=== PATIENT | male | born 1935 | race Caucasian/White ===

== ENCOUNTER 2021-01-28 18:24 | Inpatient (IN) | payer MEDICARE, OTHER ==
[~2021-01-28] VITALS: Ht 177.8 cm; Wt 102.1 kg
--- NOTE | 2021-01-28 18:28 | NUR ---
PT BIB[facility] FROM [facility] TO ER BED 05, PER REPORT PT IS MORE ALTERED THAN NORMAL AND WAS NOTED TO HAVE FEVER. 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 GOWNED AND PLACED ON MONITOR AWAITINGMD EVAL.
--- NOTE | 2021-01-28 18:30 | NUR ---
DR BISWAS AT BEDSIDE FOR EVAL.
[2021-01-28] MEDS ORDERED: POTA10TA10 PO (18:40)
[2021-01-28] MEDS ORDERED: FURO-145 PO (18:40)
[2021-01-28] MEDS ORDERED: DOCU-141 PO (18:40)
[2021-01-28] MEDS ORDERED: LACT10SO3 PO (18:40)
[2021-01-28] MEDS ORDERED: CLON0.1T PO (18:40)
[2021-01-28] MEDS ORDERED: ATOR10TA PO (18:40)
[2021-01-28] MEDS ORDERED: MULT-447 PO (18:40)
[2021-01-28] MEDS ORDERED: ACET-2605 PO ×2 (18:40)
[2021-01-28] MEDS ORDERED: MAGN400O6 PO (18:40)
[2021-01-28] MEDS ORDERED: MELA5TAB PO (18:40)
[2021-01-28] MEDS ORDERED: NA P133E RC (18:40)
[2021-01-28] MEDS ORDERED: FINA5TAB11 PO (18:40)
[2021-01-28] MEDS ORDERED: ACET-868 PO (18:40)
[2021-01-28] MEDS ORDERED: AMLO-213 PO (18:40)
[2021-01-28] MEDS ORDERED: MEGE40TA5 PO (18:40)
[2021-01-28] MEDS ORDERED: FAMO20TA8 PO (18:40)
[2021-01-28] MEDS ORDERED: BISA10SU11 RC (18:40)
--- NOTE | 2021-01-28 19:00 | NUR ---
CORPORATE STATISTICAL FINANCIAL ANALYST AT BEDSIDE FOR BLOOD DRAW.
[2021-01-28 19:09] LABS: BASOPHILS # (AUTO) 0.1 K/uL (0.0-0.2); BASOPHILS % (AUTO) 0.8 % (0.0-2.0); EOSINOPHILS % (AUTO) 0.8 % (0.0-6.0); HEMATOCRIT 43 % (39-51); HEMOGLOBIN 13.9 g/dL (13.5-17.5); LYMPHOCYTES # (AUTO) 1.6 K/uL (0.8-4.8); LYMPHOCYTES % (AUTO) 11.7 % (20.0-44.0); MEAN CORPUSCULAR HGB CONC 32 g/dl (31.0-36.0); MEAN CORPUSCULAR VOLUME 96 fL (80-96); MONOCYTES % (AUTO) 7.4 % (2.0-12.0); NEUTROPHILS # (AUTO) 10.8 K/uL (1.8-8.9); NEUTROPHILS % (AUTO) 79.3 % (43.0-81.0); PLATELET COUNT (AUTO) 426 K/uL (150-450); RED BLOOD CELL COUNT(AUTO) 4.48 MIL/uL (4.5-6.0); WHITE BLOOD COUNT (AUTO) 13.6 K/uL (4.3-11.0)
--- NOTE | 2021-01-28 19:11 | NUR ---
INFLUENZA SAMPLE OBTAINED AND SENT TO LAB
--- NOTE | 2021-01-28 19:19 | NUR ---
REPORT TO MARIBEL COSME FOR LUNA.
[2021-01-28 19:30] LABS: CALCIUM, SERUM 9.7 mg/dL (8.5-10.1); CARBON DIOXIDE 19 mmol/L (21-32); CHLORIDE 118 mmol/L (98-107); CREATININE 2.1 mg/dL (0.6-1.3); GLUCOSE 124 mg/dL (74-106); POTASSIUM 3.5 mmol/L (3.5-5.1); SODIUM SERUM 151 mmol/L (136-145); UREA NITROGEN, BLOOD 50 mg/dL (7-18)
[2021-01-28 19:35] LABS: ALANINE AMINOTRANSFERASE 49 U/L (12-78); ALBUMIN 2.4 g/dL (3.4-5.0); ALKALINE PHOSPHATASE 80 U/L (46-116); ASPARTATE AMINOTRANSFERASE 27 U/L (15-37); BILIRUBIN,DIRECT 0.2 mg/dL (0.0-0.2); BILIRUBIN,TOTAL 0.5 mg/dL (0.2-1.0); TOTAL PROTEIN, SERUM 7.4 g/dL (6.4-8.2)
[2021-01-28] MEDS ORDERED: PIPERACILLIN /TAZOBACTAM 3.375 G VIAL IV ONE (19:52)
[2021-01-28] MEDS ORDERED: PIPERACILLIN /TAZOBACTAM 3.375 G in IV D5W 50 ML IV ONE (20:00)
--- NOTE | 2021-01-28 20:00 | NUR ---
UNABLE TO COLLECT URINE, AWARE
--- NOTE | 2021-01-28 20:22 | NUR ---
sent covid swab to lab
[2021-01-28] MEDS ORDERED: ZOLPIDEM TARTRATE 5 MG TABLET PO PRN (21:00)
[2021-01-28] MEDS ORDERED: MAGNESIUM HYDROXIDE 30 ML UDC PO PRN (21:00)
[2021-01-28] MEDS ORDERED: ACETAMINOPHEN 325 MG TABLET PO PRN (21:00)
[2021-01-28] MEDS ORDERED: Z GUARD REMEDY 2 OZ OINT TP PRN (21:00)
[2021-01-28] MEDS ORDERED: IV NS 0.9% 1,000 ML IV PRN (21:00)
[2021-01-28] MEDS ORDERED: ONDANSETRON HCL/PF 4 MG/2 ML VIAL IVP PRN (21:00)
--- NOTE | 2021-01-28 22:55 | NUR ---
called cedric to have image read
--- NOTE | 2021-01-28 23:00 | NUR ---
RN NOTE REPORT RECEIVED BY CARMELINA KUHN FOR LUNA.
--- NOTE | 2021-01-28 23:02 | NUR ---
report given to emerson Marvin for gila
--- NOTE | 2021-01-28 23:13 | NUR ---
TRANSFERRED TO FIRST FLOOR UNDER ACLS
--- NOTE | 2021-01-28 23:15 | NUR ---
RN NOTE PT BROUGHT TO [facility] VIA GURNEY FROM ER. PT IS ON 5L OF O2 SHOWING WITH OXYGEN SATURATION AT 92%. PT IS UNABLE TO ANSWER QUESTION AND IS A/OX1. PT IS ON TELE MONITOR SHOWING ST. CARDIAC DIET. IV ACCESS NOTED ON LEFT HAND #20. LINE FLUSHED, PATENT, AND INTACT WITH NO SIGNS OF INFILTRATION. ALL SAFETY MEASURES IMPLEMENTED. BED LOCKED AND IN LOWEST POSITION. BED ALARM ON. SIDE RAILS UP. WILL CONTINUE TO MONITOR AND ASSESS FOR ANY CHANGES.
[2021-01-28 23:20] VITALS: BP 127/76
[2021-01-28] MEDS: HEPARIN SODIUM, PORCINE 5000 UNITS/1 ML VIAL SQ SCH (23:27)
--- NOTE | 2021-01-29 00:34 | NUR ---
RN NOTE SPOKE WITH DR. JACQUES ABOUT PT HR IN HIGH 120s, TACHYPNEA, AND USE OF ACCESSORY MUSCLES. DR. JACQUES ORDERED STAT ABG AND TO SUCTION PT.
[2021-01-29 01:10] LABS: ABG OXYGEN SATURATION 91.7 % (92.0-98.5); ABG PCO2 24.1 mmHg (35.0-45.0); ABG PH 7.459 (7.350-7.450); ABG PO2 60.2 mmHg (75.0-100.0); AaDO2 168.5 mmHg; COHb 0.7 % (0.5-1.5); MetHb 0.2 % (0.0-1.5); O2Hb 90.9 % (94.0-97.0); SITE, ABG Right Radial; VENT MODE, BG N/C 4L
--- NOTE | 2021-01-29 01:17 | NUR ---
RT NOTE ABG DONE AND RESULTS GIVEN TO RN YOLANDA, CHARGE NURSE NENA ALSO NOTIFIED OF ABG RESULTS. PT ON 4L NC AND NTS DONE, SX'ED THICK WHITE MOD AMT OF SECRETIONS. WILL CONTINUE TO MONITOR T/O SHIFT
--- NOTE | 2021-01-29 01:21 | NUR ---
RN NOTE SPOKE WITH DR. JACQUES ABOUT PT DOING BETTER NOW AFTER SUCTIONING. ALSO INFORMED HER ABOUT ABG RESULTS. NO NEW ORDERS AT THIS TIME. WILL CONTINUE TO MONITOR AND ASSESS FOR ANY CHANGES.
[2021-01-29] MEDS ORDERED: VANCOMYCIN 2 GM in IV D5W 500 ML IV ONE (02:00)
[2021-01-29] MEDS ORDERED: VANCOMYCIN 1 GM VIAL ONE (02:15)
[2021-01-29 04:00] VITALS: BP 131/86
[2021-01-29] MEDS ORDERED: ZOSYN IVPB 3.375 G in IV D5W 50ml IV ONE (04:00)
[2021-01-29] MEDS ORDERED: PIPERACILLIN /TAZOBACTAM 3.375 G VIAL IV ONE (04:08)
--- NOTE | 2021-01-29 06:36 | NUR ---
RN NOTE DR. JACQUES CAME AND SAW PT. DR. JACQUES ORDERED TO CALL RT AND HAVE THEM COME DEEP SUCTION PT. CALLED RT 3 TIMES AND EACH TIME THEY SAID THEY WILL SEND SOMEONE OVER. NO ONE FROM [facility]AME AND [employer]ISTORY PROFESSORNENA CALLED AGAIN FOR THE 4TH TIME TO SEE WHERE THEY WERE AFTER NOT SHOWING UP FOR 45MIN-HOUR AND THEY TOLD NENA THAT THEY ARE NOT COMING AND THAT DAY SHIFT WILL COME WHEN THEY ARE HERE. SPOKE WITH DR. JACQUSE ABOUT SITUATION AND SHE TOLD ME TO SUCTION PATIENT. PT WAS DEEP SUCTIONED AND THERE WAS MODERATE AMOUNT OF GREEN-BROWN SECRETIONS. PT SOUNDED LESS CONGESTED AND SOUNDED MUCH MORE CLEAR. INFORMED DR. JACQUES. ORDERED ABG. ORDER NOTED AND CARRIED OUT.
--- NOTE | 2021-01-29 07:08 | NUR ---
RN NOTE NO CHANGES IN PT CONDITION DURING SHIFT. PT IS ON 8L OF O2 WITH OXYGEN SATURATION AT >92%. PT WAS DEEP SUCTIONED AND SOUNDS LESS CONGESTED NOW AND SOUNDS MUCH MORE CLEAR. PT IS ON TELE MONITOR SHOWING ST. IV ACCESS NOTED ON LEFT HAND #20. LINE FLUSHED, PATENT, AND INTACT WITH NO SIGNS OF INFILTRATION. ALL DUE MEDS GIVEN ORDERED. PT KEPT CLEAN AND COMFORTABLE. ALL SAFETY MEASURES IMPLEMENTED. BED LOCKED AND IN LOWEST POSITION. BED ALARM ON. SIDE RAILS UP. WILL ENDORSE TO MORNING SHIFT RN FOR LUNA.
[2021-01-29 07:50] LABS: BASOPHILS % (AUTO) 0.1 % (0.0-2.0); EOSINOPHILS % (AUTO) 0.3 % (0.0-6.0); HEMATOCRIT 41 % (39-51); HEMOGLOBIN 13.3 g/dL (13.5-17.5); LYMPHOCYTES # (AUTO) 1.2 K/uL (0.8-4.8); LYMPHOCYTES % (AUTO) 8.6 % (20.0-44.0); MEAN CORPUSCULAR HGB CONC 33 g/dl (31.0-36.0); MEAN CORPUSCULAR VOLUME 96 fL (80-96); MONOCYTES % (AUTO) 7.2 % (2.0-12.0); NEUTROPHILS # (AUTO) 11.6 K/uL (1.8-8.9); NEUTROPHILS % (AUTO) 83.8 % (43.0-81.0); PLATELET COUNT (AUTO) 372 K/uL (150-450); RED BLOOD CELL COUNT(AUTO) 4.26 MIL/uL (4.5-6.0); WHITE BLOOD COUNT (AUTO) 13.8 K/uL (4.3-11.0)
[2021-01-29 08:00] VITALS: BP 140/85
--- NOTE | 2021-01-29 08:00 | NUR ---
COTTON FEEDER NOTE PATIENT IN BED WITH SEVERE CHEST CONGESTION NOTED, ON 8L SIMPLE MASK SATURATION 94% AT THIS TIME , ON TELE MONITOR ST 108 , RT HAND HL INTACT AND FLUSHED WELL ,ON IVF ORDERED BED IN LOWEST AND LOCKED POSITION, WILL MONITOR
[2021-01-29 08:02] LABS: CALCIUM, SERUM 9.3 mg/dL (8.5-10.1); CARBON DIOXIDE 19 mmol/L (21-32); CHLORIDE 116 mmol/L (98-107); CREATININE 2.1 mg/dL (0.6-1.3); GLUCOSE 147 mg/dL (74-106); MAGNESIUM 2.5 mg/dL (1.8-2.4); PHOSPHORUS 3.1 mg/dL (2.5-4.9); POTASSIUM 3.5 mmol/L (3.5-5.1); SODIUM SERUM 150 mmol/L (136-145); UREA NITROGEN, BLOOD 48 mg/dL (7-18)
--- NOTE | 2021-01-29 08:15 | NUR ---
WOUND CARE CONSULT: REVIEWED CHART, NURSING DOCUMENTATION AND PHOTOS WHICH INDICATE RASH TO SCROTUM AND BUTTOCKS WELL SCARRING TO SACRUM AND UPPER BACK, PRESENT ON ADMISSION. RECOMMENDATIONS MADE FOR SKIN PROTECTION. DISCUSSED WITH NURSING STAFF. MD IN AGREEMENT WITH PLAN OF CARE.
[2021-01-29 08:19] LABS: CHOLESTEROL 95 mg/dL (<200); HDL CHOLESTEROL 36 mg/dL (40-60); LDL 39 mg/dL (0-99); TRIGLYCERIDES 108 mg/dL (30-150)
--- NOTE | 2021-01-29 08:30 | NUR ---
CABIN OUTFITTER NOTE RT AT BEDSIDE NASOPHARYNGEAL SUCTION DONE WITH BLOODY TINGED SECRETION NOTED , CHANGED TO 6L NC SATURATION 93% AT THIS TIME
[2021-01-29] MEDS: CLOTRIMAZOLE 1% 15 GM TUBE TP SCH ×2 (09:23→17:17)
[2021-01-29] MEDS: HEPARIN SODIUM, PORCINE 5000 UNITS/1 ML VIAL SQ SCH ×2 (09:24→22:04)
--- NOTE | 2021-01-29 09:40 | NUR ---
JOURNEYMAN PATTERNMAKER NOTE SEEN BT DR BAEZ SENIOR GAME ADVISOR REPORTED CHEST X HU RESULT AND PATIENT CONDITION STATED THAT WILL CHECK IT OUT
--- NOTE | 2021-01-29 10:38 | NUR ---
DIRECTOR OF SEARCH ENGINE MARKETING NOTE POOLED IB HL CALLED TO NURSING MARKETING DIRECTOR PATIENT NEED MID LINE PATIENT IS HARD STICK
[2021-01-29 11:45] LABS: LYMPHOCYTES % (MANUAL) 7 % (16-48); MONOCYTES % (MANUAL) 11 % (0-11.0); NEUTROPHILS % (MANUAL) 82 (42-76)
[2021-01-29 12:00] VITALS: BP 140/91
--- NOTE | 2021-01-29 12:15 | NUR ---
RN REVIEW NOTE UNABLE TO ADMINISTER ZOSYN IVPB ABATING FOR MID LINE NURSE
[2021-01-29] MEDS: ZOSYN IVPB 3.375 G in IV D5W 50ml IV SCH ×2 (13:08→17:16)
--- NOTE | 2021-01-29 13:11 | NUR ---
LINEWORKER NOTE CALLED TO [place] NOTIFIED THAT PATIENT CONDITION ALSO GIVE PHONE NUMBER WARREN DANISHA
[2021-01-29] MEDS ORDERED: FUROSEMIDE 40 MG/4 ML VIAL IV ONE (14:00)
--- NOTE | 2021-01-29 15:42 | NUR ---
tel4e rn note placed mask 8l saturation 94% , all needs attended, turn reposition , keep clean dy
[2021-01-29 16:00] VITALS: BP 140/89
[2021-01-29] MEDS: CLONIDINE HCL 0.1 MG TABLET PO SCH (17:17)
[2021-01-29] MEDS: IV 1/2NS 1000 ML 1,000 ML IV PRN (17:31)
--- NOTE | 2021-01-29 17:34 | NUR ---
television operator note na [address] rice statistics tutor with order 1\1 ns art 75 ml per hour
[2021-01-29 18:23] LABS: ABG BASE EXCESS -5.5 mmol/L; ABG OXYGEN SATURATION 95.3 % (92.0-98.5); ABG PCO2 25.9 mmHg (35.0-45.0); ABG PH 7.434 (7.350-7.450); ABG PO2 75.2 mmHg (75.0-100.0); AaDO2 216.2 mmHg; COHb 0.5 % (0.5-1.5); MetHb 0.1 % (0.0-1.5); O2Hb 94.7 % (94.0-97.0); SITE, ABG Right Radial; VENT MODE, BG SIMPLE MASK
--- NOTE | 2021-01-29 19:17 | NUR ---
telemarketing agent note note with chest congestion, rt at bedside, deep suction done, placed on mask , 8l saturation 95%, endorsed care to upcoming rn Yon
--- NOTE | 2021-01-29 19:30 | NUR ---
RN NOTE PT RECEIVED IN BED. PT IS ON 8L OF 02 VIA SIMPLE MASK WITH OXYGEN SATURATION CURRENTLY AT 96%. PT IS A/OX1-2. ON TELE MONITOR SHOWING ST. IV ACCESS NOTED ON RIGHT UPPER ARM MIDLINE #20. LINE FLUSHED, PATENT, AND INTACT WITH NO SIGNS OF INFILTRATION. ALL SAFETY MEASURES IMPLEMENTED. SIDE RAILS UP X2. BED ALARM ON. BED LOCKED AND IN LOWEST POSITION. WILL CONTINUE TO MONITOR AND ASSESS FOR ANY CHANGES THROUGHOUT THE SHIFT.
[2021-01-29 20:00] VITALS: BP 137/87
--- NOTE | 2021-01-29 20:45 | NUR ---
RN NOTES, RECEIVED PATIENT FROM YOLANDA FOR CONTINUATION OF CARE, PATIENT ON SIMPLE MASK AT 8L WITH O2 SATURATION 96% AT THIS TIME, SINUS TACHY ON THE THELE MONITOR AT THIS TIME WITH HR 110, BED LOCKED AND IN LOWEST POSITION, S/R BED X2 UP, CALL LIGHT W/I REACH, WILL CONTINUE TO MONITOR CLOSELY.
--- NOTE | 2021-01-29 20:48 | NUR ---
RN NOTE REPORT GIVEN TO CARMELINA BARRETT FOR LUNA.
[2021-01-29] MEDS ORDERED: Medication Not On Formulary EA (Melatonin 5 MG) PO SCH (22:00)
[2021-01-29] MEDS: ATORVASTATIN 10 MG TABLET PO SCH (22:03)
[2021-01-29] MEDS ORDERED: CEFEPIME 1 GM in IV D5W 50 ML IV ONE (22:30)
[2021-01-29] MEDS ORDERED: CEFEPIME 1 GM VIAL ONE (22:38)
[2021-01-30] VITALS: BP 134/72
[2021-01-30 04:00] VITALS: BP 131/79
--- NOTE | 2021-01-30 04:19 | NUR ---
RT NOTE NASOTRACHEAL SUCTION GIVEN, MODERATE THICK SMITH SECRETIONS NOTED. B/S IMPROVED POST SUCTION. SPO2 @ 98%.
--- NOTE | 2021-01-30 07:20 | NUR ---
RN NOTES, PATIENT ON SIMPLE MASK AT 6L WITH O2 SATURATION >94% AT THIS TIME, SINUS TACHY ON THE THELE MONITOR AT THIS TIME WITH HR 110 ALL LIGHT, NASAL SUCTIONING PROVIDED NEEDED DURING THE NIGHT, UNABLE TO COLLECT URINE, RESISTANCE WHILE STRAIGHT CATH, AFTER BLADDER SCAN DONE, NO URINE IN THE BLADDER, PATIENT VOIDS 3X PRIOR, BED LOCKED AND IN LOWEST POSITION, DRY AND CLEAN, S/R BED X2 UP, CALL LIGHT W/I REACH, ENDORSE TO KRISTINA COSME FOR CONTINUATION OF CARE.
--- NOTE | 2021-01-30 07:34 | NUR ---
RN NOTE PATIENT IS IN BED WITH HOB AT SEMI FOWLERS POSITION. PATIENT IS ON 6L NC WITH NO SIGNS OF LABORED BREATHING. PATIENT IS AOX1. MARTIN MIDLINE IS PATENT AND INTACT. BED IS LOCKED IN THE LOWEST POSITION, 3 GUARD RAILS RAISED, CALL DIAMOND WITHIN REACH, AND ALL HOSPITAL SAFETY PRECAUTIONS ARE BEING FOLLOWED. WILL CONTINUE TO MONITOR THROUGHOUT SHIFT.
[2021-01-30 08:00] VITALS: BP 125/64
[2021-01-30] MEDS: AMLODIPINE BESYLATE 10 MG TABLET PO SCH (08:19)
[2021-01-30] MEDS: DOCUSATE SODIUM 100 MG CAPSULE PO SCH (08:19)
[2021-01-30] MEDS: FINASTERIDE (5 MG) 5 MG TABLET PO SCH (08:19)
[2021-01-30] MEDS: CLONIDINE HCL 0.1 MG TABLET PO SCH ×2 (08:20→16:14)
[2021-01-30] MEDS: CLOTRIMAZOLE 1% 15 GM TUBE TP SCH ×2 (08:20→16:14)
[2021-01-30] MEDS: HEPARIN SODIUM, PORCINE 5000 UNITS/1 ML VIAL SQ SCH ×2 (08:21→21:00)
[2021-01-30 12:00] VITALS: BP 117/75
[2021-01-30] MEDS: VANCOMYCIN 1.25 GM in IV D5W 250 ML IV SCH (13:03)
[2021-01-30 15:16] LABS: CARBON DIOXIDE 19 mmol/L (21-32); CHLORIDE 118 mmol/L (98-107); CREATININE 2.1 mg/dL (0.6-1.3); GLUCOSE 123 mg/dL (74-106); POTASSIUM 3.8 mmol/L (3.5-5.1); SODIUM SERUM 151 mmol/L (136-145); UREA NITROGEN, BLOOD 49 mg/dL (7-18)
[2021-01-30 16:00] VITALS: BP 114/74
[2021-01-30] MEDS: IV 1/2NS 1000 ML 1,000 ML IV PRN (18:01)
--- NOTE | 2021-01-30 18:30 | NUR ---
RN NOTE PATIENT IS IN BED WITH HOB AT SEMI FOWLERS POSITION. PATIENT IS ON 6L NC WITH NO SIGNS OF LABORED BREATHING. PATIENT IS AOX1. MARTIN MIDLINE IS PATENT AND INTACT. BED IS LOCKED IN THE LOWEST POSITION, 3 GUARD RAILS RAISED, CALL DIAMOND WITHIN REACH, AND ALL HOSPITAL SAFETY PRECAUTIONS ARE BEING FOLLOWED. ALL DUE MEDS GIVEN AND PATIENT REMAINED STABLE THROUGHOUT SHIFT. WILL ENDORSE TO FIELD SALES TRAINER RN.
--- NOTE | 2021-01-30 19:30 | NUR ---
RN NOTE RECEIVED PATIENT IN BED. A/OX1, OPENS EYES TO NOISE AND TACTILE STIMULI. ON OXYGEN 4L/MIN VIA NASAL CANNULA. TACHYPNEIC. RT DEEP SUCTION THE PATIENT. RT REPORTED SECRETIONS ARE BLACK THEN BECAME SMITH IN COLOR. NO S/S PAIN. TELE MONITOR READS SINUS RHYTHM HR 95. IV IN MARTIN MIDLINE RUNNING 1/2NS@75ML/HR. BILATERAL SOFT WRIST RESTRAINTS PRESENT, NO REDNESS, CAP REFILL WNL. BED IS LOW AND LOCKED, HOB ELEVATED IN SEMI FOWLERS, SIDE RIALS UP X2, CALL LIGHT WITHIN REACH.
[2021-01-30 20:00] VITALS: BP 108/78
[2021-01-30] MEDS: ATORVASTATIN 10 MG TABLET PO SCH (21:49)
[2021-01-30] MEDS: CEFEPIME 1 GM in IV D5W 50 ML IV SCH (21:49)
[2021-01-31] VITALS (8 sets, daily range): BP systolic 102–148; BP diastolic 51–94
--- NOTE | 2021-01-31 00:09 | NUR ---
STAGE BUILDER OF CARE NOTE BEDSIDE REPORT GIVEN TO SAMUEL RN FOR CONTINUATION OF CARE. PATIENT TRANSFERRED BY PIT STEWARD AND CONTRERAS PRODUCTION GRIP AND SAMUEL RN. ALL BELONGINGS AND MEDICATION FROM CASSETTE WITH PATIENT WELL PATIENTS CHART.
--- NOTE | 2021-01-31 00:27 | NUR ---
RN NOTE RECEIVED PATIENT IN BED, SLEEPING, AROUSABLE. AOX1. BREATHING EVEN AND UNLABORED. NO SOB NOTED. PATIENT ON 4L/MIN NASAL CANNULA. NO COUGH/CONGESTION NOTED. SKIN WARM AND DRY. NOTED WITH MARTIN MIDLINE RUNNING 75 ML/HR. NO INFILTRATION NOTED. PATIENT ON TELEMETRY MONITORING, CURRENTLY SINUS RHYTHM AT 93 BPM. HOB ELEVATED 35 DEGREES. BED LOCKED, IN LOW POSITION. CALL LIGHT WITHIN REACH.
[2021-01-31] MEDS: IV 1/2NS 1000 ML 1,000 ML IV PRN ×2 (05:07→17:54)
--- NOTE | 2021-01-31 07:00 | NUR ---
RN OPENING NOTE RECEIVED PATIENT IN BED, AROUSABLE. AOX1. PT IN RESTRAINTS - RENEWED WITH DOCTOR'S ORDER AT 0400. BREATHING EVEN AND UNLABORED. NO SOB NOTED. PATIENT DECLINING 4L/MIN NASAL CANNULA ORDER WHILE MAINTAINING AN O2SAT OF 94% ON ROOM AIR. NO COUGH/CONGESTION NOTED. SKIN WARM AND DRY. NOTED WITH MARTIN MIDLINE RUNNING 75 ML/HR. NO INFILTRATION NOTED. PATIENT ON TELEMETRY MONITORING, CURRENTLY SINUS RHYTHM AT 98 BPM. HOB ELEVATED 35 DEGREES. BED LOCKED, IN LOW POSITION. CALL LIGHT WITHIN REACH.
[2021-01-31] MEDS: DOCUSATE SODIUM 100 MG CAPSULE PO SCH (10:06)
[2021-01-31] MEDS: CLONIDINE HCL 0.1 MG TABLET PO SCH ×2 (10:07→17:25)
[2021-01-31] MEDS: FINASTERIDE (5 MG) 5 MG TABLET PO SCH (10:07)
[2021-01-31] MEDS: AMLODIPINE BESYLATE 10 MG TABLET PO SCH (10:38)
[2021-01-31 11:30] LABS: BASOPHILS % (AUTO) 0.1 % (0.0-2.0); EOSINOPHILS % (AUTO) 2.7 % (0.0-6.0); HEMATOCRIT 44 % (39-51); HEMOGLOBIN 12.8 g/dL (13.5-17.5); LYMPHOCYTES # (AUTO) 2.2 K/uL (0.8-4.8); MEAN CORPUSCULAR HGB CONC 29 g/dl (31.0-36.0); MEAN CORPUSCULAR VOLUME 109 fL (80-96); MONOCYTES # (AUTO) 1.9 K/uL (0.1-1.30); MONOCYTES % (AUTO) 11.3 % (2.0-12.0); NEUTROPHILS # (AUTO) 12.4 K/uL (1.8-8.9); NEUTROPHILS % (AUTO) 72.9 % (43.0-81.0); PLATELET COUNT (AUTO) 299 K/uL (150-450); RED BLOOD CELL COUNT(AUTO) 4.06 MIL/uL (4.5-6.0)
[2021-01-31 11:46] LABS: EOSINOPHILS % (MANUAL) 1 % (0-4); LYMPHOCYTES % (MANUAL) 12 % (16-48); MONOCYTES % (MANUAL) 11 % (0-11.0); NEUTROPHILS % (MANUAL) 76 (42-76)
[2021-01-31 11:56] LABS: CALCIUM, SERUM 9.1 mg/dL (8.5-10.1); CARBON DIOXIDE 20 mmol/L (21-32); CHLORIDE 119 mmol/L (98-107); GLUCOSE 82 mg/dL (74-106); SODIUM SERUM 152 mmol/L (136-145); UREA NITROGEN, BLOOD 47 mg/dL (7-18)
[2021-01-31] MEDS: HEPARIN SODIUM, PORCINE 5000 UNITS/1 ML VIAL SQ SCH ×2 (13:47→21:54)
[2021-01-31] MEDS: CLOTRIMAZOLE 1% 15 GM TUBE TP SCH (17:33)
--- NOTE | 2021-01-31 18:48 | NUR ---
RN CLOSING NOTE PT IS AROUSABLE. AOX1. PT IN RESTRAINTS PER CURRENT ORDER. BREATHING EVEN AND UNLABORED. NO SOB NOTED. PATIENT STILL DECLINING TO USE 4L/MIN NASAL CANNULA ORDER WHILE MAINTAINING AN O2SAT OF 94% ON ROOM AIR. NO COUGH/CONGESTION NOTED. SKIN WARM AND DRY. NOTED WITH MARTIN MIDLINE RUNNING 75 ML/HR. NO INFILTRATION NOTED. PATIENT CONTINUES TO BE MONITORED, CURRENTLY SINUS RHYTHM AT 98 BPM. HOB ELEVATED 35 DEGREES. BED LOCKED, IN LOW POSITION. CALL LIGHT WITHIN REACH. PT WILL BE ENDORSED TO FOLLOWING SHIFT FOR CONTINUATION OF CARE.
[2021-01-31] MEDS: ATORVASTATIN 10 MG TABLET PO SCH (21:54)
[2021-01-31] MEDS: CEFEPIME 1 GM in IV D5W 50 ML IV SCH (22:05)
[2021-02-01] MEDS: VANCOMYCIN 1.25 GM in IV D5W 250 ML IV SCH (01:59)
--- NOTE | 2021-02-01 06:23 | NUR ---
MS RN NOTES AWAKE & NON VERBAL. NOT IN ANY DISTRESS. NO SOB NOTED. NO S/SX OF ANY PAIN OR DISCOMFORT AT THIS TIME. WITH IVF INFUSING WELL. AM CARE DONE. MONITORED ACCORDINGLY. CALL LIGHT WITHIN REACH. BED IN LOWEST POSITION. SR UP X 3 WITH BED ALARM ON FOR SAFETY. WILL ENDORSE TO NEXT SHIFT.
--- NOTE | 2021-02-01 07:52 | NUR ---
MS RN OPENING NOTES RECEIVED PATIENT IN BED, ASLEEP. PATIENT ON OXYGEN THERAPY @ 4LPM VIA NASAL CANNULA. BREATHING EVEN AND UNLABORED; NO SOB NOTED AT THIS TIME. NO S/S OF PAIN SUCH FACIAL GRIMACING, GUARDING OR MOANING NOTED. MARTIN MIDLINE PRESENT AND INTACT RUNNING 1/2 NS @ 75 MLS/HR. SAFETY PRECAUTIONS IN PLACE; BED IN LOW POSITION AND LOCKED, RAILS UP x2, CALL LIGHT WITHIN REACH. WILL CONTINUE TO MONITOR PATIENT.
--- NOTE | 2021-02-01 07:54 | NUR ---
MS COSME OPENING NOTES RECEIVED PATIENT IN BED, ASLEEP. PATIENT ON ROOM AIR. BREATHING EVEN AND UNLABORED; NO SOB NOTED AT THIS TIME. NO S/S OF PAIN SUCH FACIAL GRIMACING, GUARDING OR MOANING NOTED. IV ACCESS AT LAC G #20 PRESENT AND INTACT;SL. SAFETY PRECAUTIONS IN PLACE; BED IN LOW POSITION AND LOCKED, RAILS UP x2, CALL LIGHT WITHIN REACH. WILL CONTINUE TO MONITOR PATIENT. Addendum: 02/01/21 at 1900 by KAPIL LANIER RN WRONG PATIENT
[2021-02-01] MEDS: DOCUSATE SODIUM 100 MG CAPSULE PO SCH (08:29)
[2021-02-01] MEDS: FINASTERIDE (5 MG) 5 MG TABLET PO SCH (08:29)
[2021-02-01] MEDS: CLONIDINE HCL 0.1 MG TABLET PO SCH ×2 (08:30→16:15)
[2021-02-01] MEDS: AMLODIPINE BESYLATE 10 MG TABLET PO SCH (08:30)
[2021-02-01] MEDS: CLOTRIMAZOLE 1% 15 GM TUBE TP SCH ×2 (08:32→16:26)
[2021-02-01] MEDS: HEPARIN SODIUM, PORCINE 5000 UNITS/1 ML VIAL SQ SCH ×2 (08:32→21:27)
[2021-02-01] MEDS: IV 1/2NS 1000 ML 1,000 ML IV PRN (11:03)
[2021-02-01] MEDS ORDERED: IV D5 / 0.2% NACL 1,000 ML IV SCH (15:00)
[2021-02-01] MEDS: IV D5W 1,000 ML IV PRN (16:03)
--- NOTE | 2021-02-01 18:58 | NUR ---
MS RN CLOSING NOTES PATIENT REMAINS IN BED, ASLEEP. PATIENT ON OXYGEN THERAPY AT 4 LPM VIA NASAL CANNULA. BREATHING EVEN AND UNLABORED; NO SOB NOTED AT THIS TIME. NO S/S OF PAIN SUCH FACIAL GRIMACING, GUARDING OR MOANING NOTED AT THIS TIME AND NO COMPLAINS OF PAIN DURING THE DAY. MARTIN MIDLINE PRESENT AND INTACT RUNNING D5W AT 60 MLS/HR. ALL NEEDS ATTENDED DURING THE DAY. SAFETY PRECAUTIONS IN PLACE; BED IN LOW POSITION AND LOCKED, RAILS UP x2, CALL LIGHT WITHIN REACH. WILL ENDORSE TO COOPERATIVE EDUCATION COORDINATOR NURSE FOR LUNA.
--- NOTE | 2021-02-01 19:36 | NUR ---
MS RN OPENING RECEIVED PATIENT IN BED WITH EYES CLOSED, EASY TO AROUSE. READING PATIENT CURRENTLY IN 4LPM OF O2 VIA NC, TOLERATING WELL NO S/S OF APPARENT DISTRESS. NO C/O PAIN. IV D5W RUNNING @60 ML/HR. WILL CONT. TO MONITOR. Addendum: 02/01/21 at 1945 by ELIA RIOS RN MS RN OPENING RECEIVED PATIENT IN BED WITH EYES CLOSED, EASY TO AROUSE. PATIENT CURRENTLY IN 4LPM OF O2 VIA NC, TOLERATING WELL NO S/S OF APPARENT DISTRESS. NO C/O PAIN. IV D5W RUNNING @60 ML/HR. BILATERAL SOFT WRIST RESTRAINTS IN PLACE. WILL CONT. TO MONITOR.
[2021-02-01 20:00] VITALS: BP 136/82
--- NOTE | 2021-02-01 21:00 | NUR ---
MS RN NOTE PATIENT REFUSED LAB DRAW AT THIS TIME. PATIENT MOVING ARMS AROUND. TOLD LAB TO DRAW AGAIN IN THE AM.
[2021-02-01] MEDS: ATORVASTATIN 10 MG TABLET PO SCH (21:19)
[2021-02-01] MEDS: CEFEPIME 1 GM in IV D5W 50 ML IV SCH (22:15)
[2021-02-02] VITALS (8 sets, daily range): BP systolic 86–128; BP diastolic 56–72
--- NOTE | 2021-02-02 07:30 | NUR ---
MS RN OPENING NOTES RECEIVED PATIENT ON BED WITH EYES CLOSED AND EASY TO AROUSE, A/O X1. ON 02 AT 4LPM VIA NASAL CANNULA TOLERATING WELL. NOT IN DISTRESS. WITH NO COMPLAINTS OF PAIN AT THIS TIME. WITH IV ACCESS AT RIGHT UPPER ARM MIDLINE WITH D5W AT 60ML/HR INFUSING WELL. SAFETY MEASURES IN PLACE. CALL LIGHT WITHIN REACH. BED ON LOWEST AND LOCKED POSITION, SIDE RAILS UP X2. WILL CONTINUE TO MONITOR.
[2021-02-02] MEDS: DOCUSATE SODIUM 100 MG CAPSULE PO SCH (08:40)
[2021-02-02] MEDS: FINASTERIDE (5 MG) 5 MG TABLET PO SCH (08:40)
[2021-02-02] MEDS: AMLODIPINE BESYLATE 10 MG TABLET PO SCH (08:41)
[2021-02-02] MEDS: CLONIDINE HCL 0.1 MG TABLET PO SCH ×2 (08:41→16:56)
[2021-02-02] MEDS: HEPARIN SODIUM, PORCINE 5000 UNITS/1 ML VIAL SQ SCH ×2 (08:43→21:40)
[2021-02-02] MEDS: CLOTRIMAZOLE 1% 15 GM TUBE TP SCH ×2 (09:02→16:21)
[2021-02-02] MEDS: IV D5W 1,000 ML IV PRN ×2 (10:30→16:13)
--- NOTE | 2021-02-02 10:45 | NUR ---
RN NOTES PATIENT IS HAVING SOB WITH RR-37CPM. VITAL SIGNS CHECKED: BP-86/57, KY-107, T-98.0 AND O2 SAT-94%. REPORTED TO DR. Wilmer OSCAR AND ORDERED TO ADJUST FLOW RATE TO 200ML/HR, TO HOLD BP MEDS AND TO CLOSELY MONITOR PATIENT.
[2021-02-02 11:09] LABS: BASOPHILS % (AUTO) 0.1 % (0.0-2.0); EOSINOPHILS % (AUTO) 0.5 % (0.0-6.0); HEMATOCRIT 41 % (39-51); HEMOGLOBIN 12.5 g/dL (13.5-17.5); LYMPHOCYTES # (AUTO) 1.1 K/uL (0.8-4.8); LYMPHOCYTES % (AUTO) 5.2 % (20.0-44.0); MEAN CORPUSCULAR HGB CONC 30 g/dl (31.0-36.0); MEAN CORPUSCULAR VOLUME 102 fL (80-96); MONOCYTES # (AUTO) 0.8 K/uL (0.1-1.30); MONOCYTES % (AUTO) 3.6 % (2.0-12.0); NEUTROPHILS # (AUTO) 19.9 K/uL (1.8-8.9); NEUTROPHILS % (AUTO) 90.6 % (43.0-81.0); PLATELET COUNT (AUTO) 360 K/uL (150-450); RED BLOOD CELL COUNT(AUTO) 4.04 MIL/uL (4.5-6.0)
[2021-02-02 11:25] LABS: CARBON DIOXIDE 16 mmol/L (21-32); CHLORIDE 119 mmol/L (98-107); CREATININE 1.9 mg/dL (0.6-1.3); GLUCOSE 148 mg/dL (74-106); POTASSIUM 2.9 mmol/L (3.5-5.1); SODIUM SERUM 148 mmol/L (136-145); UREA NITROGEN, BLOOD 38 mg/dL (7-18)
[2021-02-02] MEDS: VANCOMYCIN 1.25 GM in IV D5W 250 ML IV SCH (13:24)
[2021-02-02] MEDS ORDERED: POTASSIUM CHLORIDE 20 MEQ TAB.PRT.SR PO ONE (13:30)
[2021-02-02] MEDS: POTASSIUM CHLORIDE IV PRN (16:59)
[2021-02-02] MEDS: D5W IV PRN (16:59)
[2021-02-02] MEDS: SODIUM BICARBONATE IV PRN (16:59)
--- NOTE | 2021-02-02 18:38 | NUR ---
MS RN CLOSING NOTES PATIENT ON BED WITH EYES CLOSED AND EASY TO AROUSE, A/O X1. ON 02 AT 4LPM VIA NASAL CANNULA TOLERATING WELL. NOT IN DISTRESS. WITH NO COMPLAINTS OF PAIN AT THIS TIME. WITH IV ACCESS AT RIGHT UPPER ARM MIDLINE WITH D5W WITH SODIUM BICARB 50MEQ AND KCL 20MEQ AT 50ML/HR INFUSING WELL. SAFETY MEASURES IN PLACE. CALL LIGHT WITHIN REACH. BED ON LOWEST AND LOCKED POSITION, SIDE RAILS UP X2. WILL ENDORSE TO NEXT SHIFT FOR LUNA.
[2021-02-02 18:50] LABS: CARBON DIOXIDE 14 mmol/L (21-32); CHLORIDE 116 mmol/L (98-107); CREATININE 2.3 mg/dL (0.6-1.3); GLUCOSE 168 mg/dL (74-106); POTASSIUM 3.2 mmol/L (3.5-5.1); SODIUM SERUM 147 mmol/L (136-145); UREA NITROGEN, BLOOD 39 mg/dL (7-18)
--- NOTE | 2021-02-02 19:30 | NUR ---
MS RN OPENING NOTES PATIENT RESTING IN BED PATIENT; A/OX1. FORGETFUL AND CONFUSED AT TIMES. RESPIRATIONS ARE EVEN AND NONLABORED; TOLERATING O2 AT 3LPM WELL WITH NO SOB. NO SIGNS OF DISTRESS NOTED. IV MARTIN MIDLINE [id number] 50MEQ W/ KCL 20MEQ IN D5W @ 50ML/HR; PATENT AND INTACT. SAFETY MEASURES IN PLACE: CALL LIGHT WITHIN REACH, SIDE RAILS UP X 2, BED LOCKED ON LOWEST AND LOCKED POSITION, SIDE RAILS UP X2. PT IN STABLE CONDITION; WILL CONTINUE PLAN OF CARE.
--- NOTE | 2021-02-02 20:00 | NUR ---
MS RN NOTE - BP PT NOTED WITH LOW BP 89/58 P 89. DENEIS N/V/D/. NO DIZZINESS NOTED OR CHANCES IN LOC. WILL CONTINUE TO MONITOR PT AND BP. SAFETY MEASURES IN PLACE.
[2021-02-02] MEDS: CEFEPIME 1 GM in IV D5W 50 ML IV SCH ×2 (21:39→23:12)
--- NOTE | 2021-02-02 21:40 | NUR ---
MS RN NOTE MARTIN MIDLINE NOTED WITH INFILTRATION. HELD ALL IVF AT THIS TIME. ELEVATED ARM WITH PILLOW. UNSUCCESSFUL ATTEMPT TO INSERT PERIPHERAL IV. CHARGE NURSE AWARE AND AWAITING ARRIVAL OF MIDLINE NURSE.
[2021-02-02] MEDS: ATORVASTATIN 10 MG TABLET PO SCH (22:00)
--- NOTE | 2021-02-02 22:47 | NUR ---
MS RN NOTE MARTIN MIDLINE D/C BY LEONCIO COSME. NO ACTIVE BLEEDING NOTED.
--- NOTE | 2021-02-02 23:10 | NUR ---
MS RN NOTE - MIDLINE ADRIAN INSERTED DUANE MIDLINE #18G; PATENT AND INTACT.
--- NOTE | 2021-02-03 04:54 | NUR ---
ENDING NOTES: NONVERBAL TONIGHT NO RESTRAINS USED REMAINS ON 4 LITERS SATS 95% WHEN HE IS BEING REP[OSITIONED AND TURNED HE WILL GRAB THE NURSES ARM OR HAND AND HOLD TIGHTLY THE LEFT ARM MIDLINE SITE W/O REDNESS OR EDEMA IV INFUSING NO SOB MAXI ASSIST TO TURN AND BE REPOSITIONED
--- NOTE | 2021-02-03 07:15 | NUR ---
MS RN OPENING NOTES RECEIVED PATIENT ON BED ASLEEP BUT AROUSABLE BY CALL OR TOUCH. PATIENT NODS IN AGREEMENT. RESPIRATIONS ARE EVEN AND NONLABORED; TOLERATING O2 AT 3LPM WELL WITH NO SOB SATURATING BETWEEN 96-98%. MIDLINE IV ACCESS ON THE LEFT ARM WITH IVF OF SODIUM BICARBONATE WITH 50 MEQS KCL D5W RUNNING AT 50ML/HR. SAFETY MEASURES IN PLACE: CALL LIGHT WITHIN REACH, SIDE RAILS UP X 2, BED LOCKED ON LOWEST AND LOCKED POSITION, SIDE RAILS UP X2. PT IN STABLE CONDITION; WILL CONTINUE PLAN OF CARE.
[2021-02-03 08:00] VITALS: BP 110/58
[2021-02-03] MEDS: CLOTRIMAZOLE 1% 15 GM TUBE TP SCH ×2 (09:00→18:09)
[2021-02-03] MEDS: AMLODIPINE BESYLATE 10 MG TABLET PO SCH (09:00)
[2021-02-03] MEDS: CLONIDINE HCL 0.1 MG TABLET PO SCH ×2 (09:00→17:00)
--- NOTE | 2021-02-03 09:00 | NUR ---
MS RN NOTE PATIENT'S ANTI-HYPERTENSIVE MEDICATIONS WAS NOT GIVEN BECAUSE OF LOW DIASTOLE. COLACE WAS ALSO HELD BECAUSE OF 3 LOOSE BOWEL MOVEMENT FROM THE VIOLIN TEACHER.
[2021-02-03] MEDS: FINASTERIDE (5 MG) 5 MG TABLET PO SCH (09:26)
[2021-02-03] MEDS: DOCUSATE SODIUM 100 MG CAPSULE PO SCH (09:26)
[2021-02-03] MEDS: HEPARIN SODIUM, PORCINE 5000 UNITS/1 ML VIAL SQ SCH ×2 (09:27→22:00)
--- NOTE | 2021-02-03 10:00 | NUR ---
MS RN NOTE PATIENT SEEN BY DR. OSACR WITH NO NEW ORDER AT THIS TIME. WILL CONTINUE TO MONITOR PATIENT.
[2021-02-03] MEDS: POTASSIUM CL. PREMIX PERIPHER. 50 ML IV SCH ×4 (11:14→17:42)
[2021-02-03] MEDS: SODIUM BICARBONATE 650 MG TABLET PO SCH ×2 (11:14→17:00)
[2021-02-03 13:45] LABS: CALCIUM, SERUM 8.1 mg/dL (8.5-10.1); CARBON DIOXIDE 18 mmol/L (21-32); CHLORIDE 113 mmol/L (98-107); CREATININE 3.2 mg/dL (0.6-1.3); GLUCOSE 150 mg/dL (74-106); POTASSIUM 3.5 mmol/L (3.5-5.1); SODIUM SERUM 145 mmol/L (136-145); UREA NITROGEN, BLOOD 48 mg/dL (7-18)
[2021-02-03 16:00] VITALS: BP 104/71
[2021-02-03] MEDS: POTASSIUM CHLORIDE IV PRN (17:35)
[2021-02-03] MEDS: D5W IV PRN (17:35)
[2021-02-03] MEDS: SODIUM BICARBONATE IV PRN (17:35)
--- NOTE | 2021-02-03 18:47 | NUR ---
MS CLOSING RN NOTE PATIENT ON BED ASLEEP BUT AROUSABLE BY CALL OR TOUCH. PATIENT NODS IN AGREEMENT. RESPIRATIONS ARE EVEN AND NONLABORED; TOLERATING O2 AT 3LPM WELL WITH NO SOB STILL SATURATING BETWEEN 96-98%. MIDLINE IV ACCESS ON THE LEFT ARM WITH IVF OF SODIUM BICARBONATE WITH 50 MEQS KCL D5W RUNNING AT 50ML/HR. SAFETY MEASURES IN PLACE: CALL LIGHT WITHIN REACH, SIDE RAILS UP X 2, BED LOCKED ON LOWEST AND LOCKED POSITION, SIDE RAILS UP X2. PT IN STABLE CONDITION; WILL ENDORSE CONTINUITY OF CARE TO NEXT SHIFT.
--- NOTE | 2021-02-03 19:50 | NUR ---
MS RN OPENING NOTES: RECEIVED PATIENT SLEEP IN BED COMFORTABLY, AROUSABLE TO TACTILE STIMULI,, BED IN LOW POSITION, CALL LIGHTS WITHIN REACH, NO COMPLAIN OF PAIN AND DISCOMFORT AT THIS TIME, ON NC AT 3LPM O2 SATURATION AT 95%, MOUTH BREATHER, WITH MARTIN MIDLINE WITHONGOING NA HCO 50 MEQ = 20 MEQ POTASSIUM CHLORIDE INFUSING WELL, PATIENT KEPT CLEAN AND DRY, ALL NEEDS MET , WILL CONTINUE TO MONITOR.
[2021-02-03 20:09] VITALS: BP 91/61
[2021-02-03] MEDS: METRONIDAZOLE 500MG/ NS 100ML 500 MG in PREMIX 1 EA IV SCH (21:00)
[2021-02-03] MEDS ORDERED: METRONIDAZOLE 500MG/ NS 100ML 100 ML IV ONE (21:57)
[2021-02-03] MEDS: ATORVASTATIN 10 MG TABLET PO SCH (21:59)
[2021-02-03] MEDS: CEFEPIME 1 GM in IV D5W 50 ML IV SCH (22:37)
--- NOTE | 2021-02-03 22:42 | NUR ---
RN NOTES: METRONIDAZOLE 500 MG /1OOML NSS MEDICATION GIVEN C/O CN, MEDICATION NOT YET AVIALBALE AT THE CART.
[2021-02-04] MEDS ORDERED: METRONIDAZOLE 500MG/ NS 100ML 100 ML IV ONE (05:28)
[2021-02-04] MEDS: METRONIDAZOLE 500MG/ NS 100ML 500 MG in PREMIX 1 EA IV SCH ×3 (05:31→20:39)
--- NOTE | 2021-02-04 06:30 | NUR ---
RN NOTES: FLAGYL 500 MG Q8H AT 0500 GIVEN C/O CHARGE NURSE
--- NOTE | 2021-02-04 06:50 | NUR ---
MS RN CLOSING NOTE: PATIENT SLEEP IN BED COMFORTABLY, AROUSABLE TO TACTILE STIMULI, BED IN LOW POSITION, CALL LIGHTS WITHIN REACH,NO COMPLAIN OF PAIN AND DISCOMFORT AT THIS TIME, WITH DUANE MIDLINE WITH ONGOING NAHCO 50MEQ + POTASSIUM CHLORIDE 20 MEQ IN D5 W RUNNING AT 50ML/HR INFUSING WELL, PATIENT ON O2 AT 3LPM SATURATION AT 94 PERCENT, NO SOB WAS OBSERVED, WEEKLY PICTURE OF SKIN ISSUES UPDATED, PATIENT KEPT CLEAN AND DRY, ALL NEEDS MET, ENDORSE TO INCOMING SHIFT.
[2021-02-04 06:55] LABS: CALCIUM, SERUM 8.2 mg/dL (8.5-10.1); CARBON DIOXIDE 17 mmol/L (21-32); CHLORIDE 113 mmol/L (98-107); GLUCOSE 135 mg/dL (74-106); POTASSIUM 3.7 mmol/L (3.5-5.1); SODIUM SERUM 145 mmol/L (136-145); UREA NITROGEN, BLOOD 51 mg/dL (7-18)
[2021-02-04 07:24] LABS: CREATININE 3.4 mg/dL (0.6-1.3)
--- NOTE | 2021-02-04 07:26 | NUR ---
RN NOTES RECEIVED PATIENT RESTING IN BED COMFORTABLY, AROUSABLE TO VERBAL AND TACTILE STIMULI, A/O 1-2, NO COMPLAIN OF PAIN AND DISCOMFORT AT THIS TIME. WITH DUANE MIDLINE WITH ONGOING NAHCO 50MEQ + POTASSIUM CHLORIDE 20 MEQ IN D5 W RUNNING AT 50ML/HR INFUSING WELL, PATIENT ON O2 AT 3LPM SATURATION AT 95 %, NO SOB NOTED. SAFETY MEASURES IN PLACE. BED ON ITS LOWEST AND LOCKED POSITION, SIDE RAILS UP, BED ALARM ON, CALL LIGHT PLACED WITHIN EASY REACH. WILL CONTINUE TO MONITOR PATIENT.
[2021-02-04 08:00] VITALS: BP 117/74
[2021-02-04] MEDS: DOCUSATE SODIUM 100 MG CAPSULE PO SCH (08:15)
[2021-02-04] MEDS: SODIUM BICARBONATE 650 MG TABLET PO SCH ×2 (08:15→16:23)
[2021-02-04] MEDS: FINASTERIDE (5 MG) 5 MG TABLET PO SCH (08:15)
[2021-02-04] MEDS: HEPARIN SODIUM, PORCINE 5000 UNITS/1 ML VIAL SQ SCH ×2 (08:16→20:41)
[2021-02-04] MEDS: AMLODIPINE BESYLATE 10 MG TABLET PO SCH (08:16)
[2021-02-04] MEDS: CLONIDINE HCL 0.1 MG TABLET PO SCH ×2 (08:16→16:23)
[2021-02-04] MEDS: CLOTRIMAZOLE 1% 15 GM TUBE TP SCH ×2 (08:17→16:26)
[2021-02-04 16:00] VITALS: BP 96/61
[2021-02-04] MEDS: SODIUM BICARBONATE IV PRN (17:33)
[2021-02-04] MEDS: D5W IV PRN (17:33)
[2021-02-04] MEDS: POTASSIUM CHLORIDE IV PRN (17:33)
--- NOTE | 2021-02-04 18:43 | NUR ---
RN NOTES PATIENT ASLEEP IN BED, AROUSABLE TO VERBAL AND TACTILE STIMULI, A/O 1-2, DENIES PAIN AND DISCOMFORT AT THIS TIME. WITH DUANE MIDLINE #20G, PATENT AND INTACT, WITH NACO3 50MEQ + POTASSIUM CHLORIDE 20 MEQ IN D5W RUNNING AT 50ML/HR INFUSING WELL. PATIENT ON O2 AT 3-4LPM, SATURATION AT 96 %, NO SOB NOTED, BREATHING EVEN AND UNLABORED. SUCTIONED ORAL SECRETIONS PRN. ALL DUE MEDS GIVEN TOLERATED WELL. ASSISTED WITH FEEDING, ASPIRATIONS PRECAUTIONS OBSERVED AT ALL TIMES, HOB ELEVATED. TURNED AND REPOSITIONED EVERY [address] MEAS[address] IN PLACE. BED ON ITS LOWEST AND LOCKED POSITION, SIDE RAILS X2 UP, BED ALARM ON, CALL LIGHT PLACED WITHIN EASY REACH. WILL ENDORSE TO NEXT SHIFT.
--- NOTE | 2021-02-04 19:06 | NUR ---
RT PT CURRENTLY SLEEPING ON 3LPM NC. NO NTS NEEDED AT THE MOMENT SPO2 95% HR 107. NO SOB OR S/S OF ACUTE RESPIRATORY DISTRESS NOTED. WILL CONTINUE TO MONITOR T/O SHIFT.
--- NOTE | 2021-02-04 19:40 | NUR ---
RN ms opening notes Received Pt from morning nurse. Pt is resting in bed comfortably. Pt is alert and orientedX1, calm, awake, arousable with touch and tactile stimuli. Respiration is normal in 3 L NC. No SOB. No S/S of distress noted. DUANE midline is clean, intact and infuising well NA HCO3 50 meq and KCL 20 meq in D5 W @ 50 ml/hr. Safety precautions is maintained. Bed at low position, brakes locked, side rails upX3 and call light is within reach. Will continue to monitor.
[2021-02-04 20:00] VITALS: BP 95/67
[2021-02-04] MEDS: CEFEPIME 1 GM in IV D5W 50 ML IV SCH (21:31)
[2021-02-04] MEDS: ATORVASTATIN 10 MG TABLET PO SCH (21:31)
--- NOTE | 2021-02-04 22:18 | NUR ---
RT PT CURRENTLY SLEEPING ON 3LPM NC. NO NTS NEEDED AT THE MOMENT SPO2 96% HR 108. NO SOB OR S/S OF ACUTE RESPIRATORY DISTRESS NOTED. WILL CONTINUE TO MONITOR T/O SHIFT.
--- NOTE | 2021-02-05 02:28 | NUR ---
RT PT CURRENTLY SLEEPING (SNORING) ON 3LPM NC. NO NTS NEEDED AT THE MOMENT SPO2 96% HR 106-109. NO SOB OR S/S OF ACUTE RESPIRATORY DISTRESS NOTED. WILL CONTINUE TO MONITOR T/O SHIFT.
[2021-02-05] MEDS: METRONIDAZOLE 500MG/ NS 100ML 500 MG in PREMIX 1 EA IV SCH ×3 (04:23→20:59)
--- NOTE | 2021-02-05 07:00 | NUR ---
RN ms closing notes Pt is resting in bed comfortably. Pt is alert and orientedX1,arousable with touch and tactile stimuli. Respiration is normal in 3 L NC. No SOB. No S/S of distress noted. DUANE midline is clean, intact and infuising well NA HCO3 50 meq and KCL 20 meq in D5 W @ 50 ml/hr. Routine VS is stable. Kept Pt clean, dry and comfortable. All needs met and attended. Safety precautions is maintained. Bed at low position, brakes locked, side rails upX3 and call light is within reach. Will endorse to am nurse for LUNA.
--- NOTE | 2021-02-05 07:40 | NUR ---
RN MS NOTES RECEIVED PT. AWAKE IN BED A/O X 1, WITH PERIODS OF CONFUSION. REALITY REORIENTATION PROVIDED. PT. NO S/SX OF RESPIRATORY DISTRESS NOTED AT THIS TIME.. BREATHING EVEN AND UNLABORED. PT, ON 3 LPM NC. No SOB. PT. DUANE MIDLINE, INTACT WITH IV NA BICARB 50 MG +KCL 20 MEQ IN D5W RUNNING AT 50 ML/HR, INFUSING WELL. SAFETY PRECAUTIONS IN PLACE. BED IN LOWEST LOCKED POSITION. SIDE RAILS X3. CALL LIGHT AND BEDSIDE TABLE WITHIN EASY REACH. WILL CONTINUE TO MONITOR PT. ACCDGLY.
[2021-02-05 08:00] VITALS: BP 139/64
[2021-02-05] MEDS: DOCUSATE SODIUM 100 MG CAPSULE PO SCH (08:42)
[2021-02-05] MEDS: SODIUM BICARBONATE 650 MG TABLET PO SCH ×2 (08:42→16:42)
[2021-02-05] MEDS: AMLODIPINE BESYLATE 10 MG TABLET PO SCH (08:42)
[2021-02-05] MEDS: CLONIDINE HCL 0.1 MG TABLET PO SCH ×2 (08:43→16:41)
[2021-02-05] MEDS: FINASTERIDE (5 MG) 5 MG TABLET PO SCH (08:43)
[2021-02-05] MEDS: CLOTRIMAZOLE 1% 15 GM TUBE TP SCH ×2 (09:12→16:43)
--- NOTE | 2021-02-05 16:39 | NUR ---
RN NOTES TRIED TO INSERT ZHAO CATHETER FOR 3X, BUT UNABLE DUE TO RESISTANCE AND VERY ENLARGED SCROTUM.ALSO, NOTIFIED DR. FLORES
--- NOTE | 2021-02-05 18:37 | NUR ---
RN MS CLOSING NOTES PT. AWAKE IN BED A/O X 1, WITH PERIODS OF CONFUSION. REALITY REORIENTATION PROVIDED. PT. NO S/SX OF RESPIRATORY DISTRESS NOTED AT THIS TIME.. BREATHING EVEN AND UNLABORED. PT, ON 3 LPM NC. No SOB. PT. DUANE MIDLINE, INTACT WITH IV NA BICARB 50 MG +KCL 20 MEQ IN D5W RUNNING AT 50 ML/HR, INFUSING WELL. PT. ON NPO FOR NOW. SAFETY PRECAUTIONS IN PLACE. BED IN LOWEST LOCKED POSITION. SIDE RAILS X3. CALL LIGHT AND BEDSIDE TABLE WITHIN EASY REACH. WILL ENDORSED PT. TO ELECTRONEURODIAGNOSTIC TECHNICIAN NURSE FOR CONTINUITY OF CARE.
--- NOTE | 2021-02-05 19:20 | NUR ---
RN ms opening notes Pt is resting in bed comfortably. Pt is alert and orientedX1, confused and arousable with touch and tactile stimuli. Respiration is normal in 3 L NC. No SOB. No S/S of distress noted. VS is stable. DUANE midline is clean, intact and infuising well NA HCO3 50 meq and KCL 20 meq in D5 W @ 50 ml/hr. Safety precautions is maintained. Bed at low position, brakes locked, side rails upX3 and call light is within reach. Will continue to monitor.
[2021-02-05 20:00] VITALS: BP 112/72
[2021-02-05 20:25] VITALS: BP 112/72
[2021-02-05] MEDS: ATORVASTATIN 10 MG TABLET PO SCH (21:57)
--- NOTE | 2021-02-05 21:57 | NUR ---
RN ms notes Held lipitor 10 mg/1 tab because of NPO diagnosis until Pt see [facility] in am. is aware.
[2021-02-05] MEDS: CEFEPIME 1 GM in IV D5W 50 ML IV SCH (22:47)
[2021-02-05] MEDS: POTASSIUM CHLORIDE IV PRN (22:54)
[2021-02-05] MEDS: SODIUM BICARBONATE IV PRN (22:54)
[2021-02-05] MEDS: D5W IV PRN (22:54)
--- NOTE | 2021-02-06 03:00 | NUR ---
RN notes Pt keep refusing for oral care during the shift. Pt is alert and orientedX1 with episode of confusion. Pt keep biting and keep resisting. Will continue to monitor.
[2021-02-06] MEDS: METRONIDAZOLE 500MG/ NS 100ML 500 MG in PREMIX 1 EA IV SCH ×3 (04:10→21:46)
--- NOTE | 2021-02-06 04:30 | NUR ---
RN notes Suctioned Pt with RT at the bed side. Pt's O2 sat is 98%.
--- NOTE | 2021-02-06 04:45 | NUR ---
RT called to bedside by RN for NTS . Pt stable NTS performed suctioned small amount of vinson secretions from back of the throat. Spo2 95 % or greater throughout the procedure.
--- NOTE | 2021-02-06 06:50 | NUR ---
RN ms closing notes Pt is resting in bed comfortably. Pt is alert and orientedX1, awake and with episode of confusion. Respiration is normal in 3 L NC. No SOB. No S/S of distress noted. VS is stable. [facility]line is clean, intact and infuising well NA HCO3 50 meq and KCL 20 meq in D5 W @ 50 ml/hr. Suctioned Pt. Kept Pt clean, dry and comfortable. Safety precautions is maintained. Bed at low position, brakes locked, side rails upX3 and call light is within reach. Will endorse to morning nurse for LUNA.
--- NOTE | 2021-02-06 07:20 | NUR ---
RN MS OPENING NOTES RECEIVED PT. AWAKE IN BED A/O X 1, WITH PERIODS OF CONFUSION. REALITY REORIENTATION PROVIDED. PT. NO S/SX OF RESPIRATORY DISTRESS NOTED AT THIS TIME.. BREATHING EVEN AND UNLABORED. PT, ON 3 LPM NC. NO SOB AT THIS TIME PT. HAS DUANE MIDLINE, INTACT WITH IV NA BICARB 50 MG +KCL 20 MEQ IN D5W RUNNING AT 50 ML/HR, INFUSING WELL. STILL ON NPO. SAFETY PRECAUTIONS IN PLACE. BED IN LOWEST LOCKED POSITION. SIDE RAILS X3. CALL LIGHT AND BEDSIDE TABLE WITHIN EASY REACH. WILL CONTINUE TO MONITOR PT. ACCDGLY.
[2021-02-06 08:00] VITALS: BP 106/58
[2021-02-06] MEDS: CLONIDINE HCL 0.1 MG TABLET PO SCH ×2 (08:55→17:00)
[2021-02-06] MEDS: DOCUSATE SODIUM 100 MG CAPSULE PO SCH (08:56)
[2021-02-06] MEDS: AMLODIPINE BESYLATE 10 MG TABLET PO SCH (08:56)
[2021-02-06] MEDS: FINASTERIDE (5 MG) 5 MG TABLET PO SCH (08:57)
[2021-02-06] MEDS: SODIUM BICARBONATE 650 MG TABLET PO SCH ×2 (08:57→17:00)
[2021-02-06] MEDS: CLOTRIMAZOLE 1% 15 GM TUBE TP SCH ×2 (08:58→17:19)
--- NOTE | 2021-02-06 11:56 | NUR ---
RN MS NOTES PT SEEN AND EXAMINED BY DR. PRATHER, ORDERS GIVEN, PT UNABLE TO DO MRI, DESATURATES WHEN LYING FLAT, MD INFORMED.
[2021-02-06] MEDS ORDERED: METRONIDAZOLE 500 MG TABLET PO SCH (13:00)
[2021-02-06 16:00] VITALS: BP 109/68
[2021-02-06 16:43] LABS: BASOPHILS % (AUTO) 0.1 % (0.0-2.0); EOSINOPHILS % (AUTO) 0.5 % (0.0-6.0); HEMATOCRIT 36 % (39-51); HEMOGLOBIN 11.5 g/dL (13.5-17.5); LYMPHOCYTES # (AUTO) 0.8 K/uL (0.8-4.8); LYMPHOCYTES % (AUTO) 3.4 % (20.0-44.0); MEAN CORPUSCULAR HGB CONC 32 g/dl (31.0-36.0); MEAN CORPUSCULAR VOLUME 93 fL (80-96); MONOCYTES # (AUTO) 1.2 K/uL (0.1-1.30); MONOCYTES % (AUTO) 5.1 % (2.0-12.0); NEUTROPHILS % (AUTO) 90.9 % (43.0-81.0); PLATELET COUNT (AUTO) 436 K/uL (150-450); RED BLOOD CELL COUNT(AUTO) 3.82 MIL/uL (4.5-6.0); WHITE BLOOD COUNT (AUTO) 24.2 K/uL (4.3-11.0)
[2021-02-06 17:01] LABS: CALCIUM, SERUM 7.8 mg/dL (8.5-10.1); CARBON DIOXIDE 18 mmol/L (21-32); CHLORIDE 116 mmol/L (98-107); CREATININE 3.8 mg/dL (0.6-1.3); GLUCOSE 136 mg/dL (74-106); MAGNESIUM 2.3 mg/dL (1.8-2.4); POTASSIUM 3.1 mmol/L (3.5-5.1); SODIUM SERUM 149 mmol/L (136-145); UREA NITROGEN, BLOOD 62 mg/dL (7-18)
[2021-02-06 17:56] LABS: BAND % (MANUAL) 4 % (0.0-5.0); LYMPHOCYTES % (MANUAL) 5 % (16-48); NEUTROPHILS % (MANUAL) 88 (42-76)
[2021-02-06 17:57] LABS: MONOCYTES % (MANUAL) 3 % (0-11.0)
--- NOTE | 2021-02-06 18:23 | NUR ---
RN MS NOTES RECEIVED LATEST LAB RESULTS, DR. PRATHER ORDERED 40 MEQ POTASSIUM CHLORIDE IV, NOTED AND CARRIED OUT.
[2021-02-06] MEDS: POTASSIUM CL. PREMIX PERIPHER. 50 ML IV SCH ×4 (18:41→21:30)
--- NOTE | 2021-02-06 18:43 | NUR ---
CARMELINA MS OPENING NOTES RECEIVED PT. AWAKE IN BED A/O X 1, WITH PERIODS OF CONFUSION. REALITY REORIENTATION PROVIDED. PT. NO S/SX OF RESPIRATORY DISTRESS NOTED AT THIS TIME.. BREATHING EVEN AND UNLABORED. PT, ON 3 LPM NC. NO SOB AT THIS TIME PT. HAS DUANE MIDLINE, INTACT WITH IV NA BICARB 50 MG +KCL 20 MEQ IN D5W RUNNING AT 50 ML/HR, INFUSING WELL. STILL ON NPO. SAFETY PRECAUTIONS IN PLACE. BED IN LOWEST LOCKED POSITION. SIDE RAILS X3. CALL LIGHT AND BEDSIDE TABLE WITHIN EASY REACH. WILL CONTINUE TO MONITOR PT AND WILL ENDORSED TO TALKBACK HOST NURSE. Addendum: 02/06/21 at 1851 by MICHELLE KURTZ RN ABOVE NOTES IS CLOSING NOTES FOR AM SHIFT
--- NOTE | 2021-02-06 19:10 | NUR ---
MS/RN OPENING NOTE RECEIVED PATIENT RESTING IN BED. AWAKE, ALERT AND ORIENTED X 1. NO S/SX OF PAIN NOTED AT THIS TIME. CONTINUES ON O2 3L VIA NC WITH NO S/SX OF RESPIRATORY DISTRESS NOTED. IV ACCESS TO LEFT UPPER ARM MIDLINE INTACT AND PATENT. CONTINUES ON NABICARB WITH POTASSIUM IN D5W @ 50ML/HR. CONTINUES ON IV ABX. CONTINUES ON IV POTASSIUM X 4 BAGS. PATIENT IS NPO AT THIS TIME. CALL LIGHT WITHIN REACH. ASPIRATION, FALL AND SAFETY PRECAUTIONS MAINTAINED. WILL CONTINUE TO MONITOR.
[2021-02-06 20:00] VITALS: BP 120/76
[2021-02-06] MEDS: SODIUM BICARBONATE IV PRN (20:54)
[2021-02-06] MEDS: D5W IV PRN (20:54)
[2021-02-06] MEDS: POTASSIUM CHLORIDE IV PRN (20:54)
[2021-02-06] MEDS: ATORVASTATIN 10 MG TABLET PO SCH (22:00)
[2021-02-06] MEDS: CEFEPIME 1 GM in IV D5W 50 ML IV SCH (22:34)
[2021-02-07] MEDS: METRONIDAZOLE 500MG/ NS 100ML 500 MG in PREMIX 1 EA IV SCH ×3 (04:38→20:30)
--- NOTE | 2021-02-07 06:10 | NUR ---
MS/RN CLOSING NOTE PATIENT CURRENTLY RESTING IN BED. AWAKE, ALERT AND ORIENTED X 1. NO S/SX OF PAIN NOTED AT THIS TIME. CONTINUES ON O2 2L VIA NC WITH NO S/SX OF RESPIRATORY DISTRESS NOTED. IV ACCESS TO LEFT UPPER ARM MIDLINE INTACT AND PATENT. CONTINUES ON NABICARB WITH POTASSIUM IN D5W @ 50ML/HR. CONTINUES ON IV ABX. PATIENT IS NPO AT THIS TIME. CALL LIGHT WITHIN REACH. ASPIRATION, FALL AND SAFETY PRECAUTIONS MAINTAINED. WILL ENDORSE PLAN OF CARE TO ONCOMING SHIFT.
--- NOTE | 2021-02-07 07:38 | NUR ---
MS RN OPENING NOTES RECEIVED PATIENT IN BED, AWAKE, A/OX1. PATIENT ON OXYGEN THERAPY @ 2 LPM; BREATHING EVEN AND UNLABORED, NO SOB NOTED. NO S/S OF PAIN SUCH FACIAL GRIMACING, MOANING OR GUARDING NOTED. DUANE MIDLINE G # 18 PRESENT AND INTACT RUNNING NA-BICARB+KCL @50 MLS/HR. SAFETY PRECAUTIONS IN PLACE; BED IN LOW POSITION AND LOCKED, RAILS UP X2, CALL LIGHT WITHIN REACH. WILL CONTINUE TO MONITOR PATIENT.
[2021-02-07 08:00] VITALS: BP 100/53
[2021-02-07] MEDS: FINASTERIDE (5 MG) 5 MG TABLET PO SCH (08:35)
[2021-02-07] MEDS: CLONIDINE HCL 0.1 MG TABLET PO SCH ×2 (08:35→16:12)
[2021-02-07] MEDS: AMLODIPINE BESYLATE 10 MG TABLET PO SCH (08:35)
[2021-02-07] MEDS: DOCUSATE SODIUM 100 MG CAPSULE PO SCH (08:35)
[2021-02-07] MEDS: CLOTRIMAZOLE 1% 15 GM TUBE TP SCH ×2 (08:36→16:33)
[2021-02-07] MEDS: SODIUM BICARBONATE 650 MG TABLET PO SCH ×2 (08:36→16:13)
--- NOTE | 2021-02-07 09:28 | NUR ---
MS RN NOTES EXHIBIT ELECTRICIAN CHECKED THE PATIENT AND DECIDED THAT WON'T BE ABLE TO TAKE GOOD IMAGES DUE TO PATIENT MOVING AND NOT BEING ABLE TO HOLD STILL. ALSO O2 DROPPING WHEN HOB GOES DOWN.
[2021-02-07 15:07] LABS: BASOPHILS % (AUTO) 0.1 % (0.0-2.0); EOSINOPHILS % (AUTO) 0.4 % (0.0-6.0); HEMATOCRIT 35 % (39-51); HEMOGLOBIN 11.5 g/dL (13.5-17.5); LYMPHOCYTES # (AUTO) 1.2 K/uL (0.8-4.8); LYMPHOCYTES % (AUTO) 4.9 % (20.0-44.0); MEAN CORPUSCULAR HGB CONC 33 g/dl (31.0-36.0); MEAN CORPUSCULAR VOLUME 94 fL (80-96); MONOCYTES # (AUTO) 1.3 K/uL (0.1-1.30); MONOCYTES % (AUTO) 5.4 % (2.0-12.0); NEUTROPHILS # (AUTO) 21.9 K/uL (1.8-8.9); NEUTROPHILS % (AUTO) 89.2 % (43.0-81.0); PLATELET COUNT (AUTO) 432 K/uL (150-450); RED BLOOD CELL COUNT(AUTO) 3.77 MIL/uL (4.5-6.0); WHITE BLOOD COUNT (AUTO) 24.5 K/uL (4.3-11.0)
[2021-02-07 15:22] LABS: CALCIUM, SERUM 7.8 mg/dL (8.5-10.1); CARBON DIOXIDE 19 mmol/L (21-32); CHLORIDE 118 mmol/L (98-107); CREATININE 3.6 mg/dL (0.6-1.3); GLUCOSE 144 mg/dL (74-106); MAGNESIUM 2.3 mg/dL (1.8-2.4); POTASSIUM 3.6 mmol/L (3.5-5.1); SODIUM SERUM 149 mmol/L (136-145); UREA NITROGEN, BLOOD 68 mg/dL (7-18)
[2021-02-07 16:00] VITALS: BP 110/71
[2021-02-07 16:22] LABS: BAND % (MANUAL) 3 % (0.0-5.0); EOSINOPHILS % (MANUAL) 1 % (0-4); LYMPHOCYTES % (MANUAL) 7 % (16-48); MONOCYTES % (MANUAL) 4 % (0-11.0); NEUTROPHILS % (MANUAL) 85 (42-76)
--- NOTE | 2021-02-07 18:38 | NUR ---
MS RN CLOSING NOTES PATIENT REMAINS IN BED, ASLEEP,CONFUSED AND NON-VERBAL. PATIENT ON OXYGEN THERAPY @ 2 LPM; BREATHING EVEN AND UNLABORED, NO SOB NOTED DURING THE DAY. NO S/S OF PAIN SUCH FACIAL GRIMACING, MOANING OR GUARDING NOTED. DUANE MIDLINE G # 18 PRESENT AND INTACT RUNNING NA-BICARB+KCL @50 MLS/HR. ALL NEEDS ATTENDED DURING THE DAY. SAFETY PRECAUTIONS IN PLACE; BED IN LOW POSITION AND LOCKED, RAILS UP X2, CALL LIGHT WITHIN REACH. WILL ENDORSE TO TEMPORARY OFFICE ASSISTANT NURSE FOR LUNA.
[2021-02-07] MEDS: D5W IV PRN (18:41)
[2021-02-07] MEDS: POTASSIUM CHLORIDE IV PRN (18:41)
[2021-02-07] MEDS: SODIUM BICARBONATE IV PRN (18:41)
--- NOTE | 2021-02-07 19:50 | NUR ---
Patient is alert to sound and touch but not oriented, non-verbal. Patient is on O2 via NC 2L sat at 96%, no signs of respiratory distress. Patient has intermittent productive cough suction as needed, thick white sputum. HOB >45 degrees at all times. DUANE midline patent and intact. Patient is currently NPO for not passing swallow eval. Will continue to monitor status closely.
[2021-02-07 20:00] VITALS: BP 99/64
[2021-02-07] MEDS: ATORVASTATIN 10 MG TABLET PO SCH (21:01)
[2021-02-07] MEDS: CEFEPIME 1 GM in IV D5W 50 ML IV SCH (21:44)
--- NOTE | 2021-02-07 23:00 | NUR ---
Midline noted to be leaking. Upon further inspection midline was out of place. catheter approx 2/3 inch removed and bent. Unable to establish IV access. ICU charge called when it is not busy to attempt establishing IV access.
--- NOTE | 2021-02-08 02:00 | NUR ---
ICU nurse Able to establish IV access #22G L wrist.
[2021-02-08] MEDS: METRONIDAZOLE 500MG/ NS 100ML 500 MG in PREMIX 1 EA IV SCH ×3 (05:02→20:14)
--- NOTE | 2021-02-08 07:06 | NUR ---
called [facility] to page transportation dispatch manager at [phone]. did not return call. Will have AM follow up regarding patient pulling at lines and taking off oxygen, combative with care. And need for midline IV d/t hard stick, repeated attemps at IV sticks and blood draws. Still has patent #22G to L wrist for now.
--- NOTE | 2021-02-08 07:32 | NUR ---
new order from Nolberto argueta for soft wrist restraints, midline, and ABGs lab. d/t frequent taking off oxygen, combativeness with care and removal of old midline.
--- NOTE | 2021-02-08 07:57 | NUR ---
MS/RN OPENING NOTES RECEIVED PATIENT IN BED, ASLEEP,CONFUSED AND NON-VERBAL. PATIENT ON OXYGEN THERAPY @ 2 LPM; BREATHING EVEN AND UNLABORED, NO SOB NOTED. NO S/S OF PAIN SUCH FACIAL GRIMACING, MOANING OR GUARDING NOTED. LEFT WRIST #22G IS INTACT WITH RUNNING NA-BICARB+KCL @50 MLS/HR. SAFETY PRECAUTIONS IN PLACE; BED IN LOW POSITION AND LOCKED, SIDE RAILS UP X2, CALL LIGHT WITHIN REACH. WILL CONTINUE TO MONITOR PATIENT.
[2021-02-08 08:00] VITALS: BP 115/77
--- NOTE | 2021-02-08 08:30 | NUR ---
RT ABG DONE. RESULTS GIVEN TO ROSE COSME. ABG MACHINE DOWN. DOWNTIME PROCEDURES DONE, PLACED RESULTS IN CHART.
[2021-02-08] MEDS: DOCUSATE SODIUM 100 MG CAPSULE PO SCH (09:00)
[2021-02-08] MEDS: CLOTRIMAZOLE 1% 15 GM TUBE TP SCH ×2 (09:00→16:54)
[2021-02-08] MEDS: AMLODIPINE BESYLATE 10 MG TABLET PO SCH (09:00)
[2021-02-08] MEDS: SODIUM BICARBONATE 650 MG TABLET PO SCH ×2 (09:00→17:00)
[2021-02-08] MEDS: FINASTERIDE (5 MG) 5 MG TABLET PO SCH (09:00)
[2021-02-08] MEDS: CLONIDINE HCL 0.1 MG TABLET PO SCH ×2 (09:00→17:00)
[2021-02-08] MEDS: PANTOPRAZOLE 40 MG VIAL IV SCH ×2 (09:29→16:58)
[2021-02-08 09:37] LABS: BASOPHILS % (AUTO) 0.1 % (0.0-2.0); EOSINOPHILS % (AUTO) 0.2 % (0.0-6.0); HEMATOCRIT 31 % (39-51); HEMOGLOBIN 10.2 g/dL (13.5-17.5); LYMPHOCYTES # (AUTO) 1.5 K/uL (0.8-4.8); LYMPHOCYTES % (AUTO) 6.2 % (20.0-44.0); MEAN CORPUSCULAR HGB CONC 33 g/dl (31.0-36.0); MEAN CORPUSCULAR VOLUME 95 fL (80-96); MONOCYTES # (AUTO) 1.3 K/uL (0.1-1.30); MONOCYTES % (AUTO) 5.6 % (2.0-12.0); NEUTROPHILS # (AUTO) 21.3 K/uL (1.8-8.9); NEUTROPHILS % (AUTO) 87.9 % (43.0-81.0); PLATELET COUNT (AUTO) 387 K/uL (150-450); WHITE BLOOD COUNT (AUTO) 24.2 K/uL (4.3-11.0)
[2021-02-08 09:54] LABS: CALCIUM, SERUM 8.1 mg/dL (8.5-10.1); CARBON DIOXIDE 20 mmol/L (21-32); CHLORIDE 119 mmol/L (98-107); CREATININE 3.8 mg/dL (0.6-1.3); GLUCOSE 145 mg/dL (74-106); MAGNESIUM 2.4 mg/dL (1.8-2.4); PHOSPHORUS 3.1 mg/dL (2.5-4.9); POTASSIUM 3.7 mmol/L (3.5-5.1); SODIUM SERUM 152 mmol/L (136-145); UREA NITROGEN, BLOOD 76 mg/dL (7-18)
[2021-02-08 10:08] LABS: THYROID STIMULATING HORMONE 1.542 uIU/mL (0.358-3.74)
--- NOTE | 2021-02-08 10:51 | NUR ---
MS/RN NOTES- PATIENT ENDORSED TO CARMELINA HERNANDEZ FOR CONTINUATION OF CARE.
--- NOTE | 2021-02-08 11:00 | NUR ---
m/s carnallite plant operator: notes bedside report given by phyllis (rn) for continuity of report. pt remains npo, pt failed the swallow eval today per report. trisha wrist restraint on and released for circulation. pt remains on sodium bicarb at 50ml/hr, infusing well. follow up made by dr. dillard (hospitalist), dr. huston (poultry hatchery manager), ana maria (id, mold bunch trimmer), and dr. rice (launch commander harbor police) today. pt remains altered, appears lethargic. reality orientation provided prn. will continue to monitor.
--- NOTE | 2021-02-08 12:30 | NUR ---
m/s loss prevention auditor: notes pt remains weak/lethargic. still on low flow of oxygen via n/c. hob elevated. reality orientation provided prn. kept comfortable. will continue to monitor.
[2021-02-08 13:23] LABS: BAND % (MANUAL) 1 % (0.0-5.0); LYMPHOCYTES % (MANUAL) 6 % (16-48); MONOCYTES % (MANUAL) 5 % (0-11.0); MYELOCYTES % 1 % (0-0); NEUTROPHILS % (MANUAL) 87 (42-76)
--- NOTE | 2021-02-08 14:00 | NUR ---
m/s rn compliance: notes pt remains weak, non-verbal, and npo. incontinent care rendered. kept clean and dry. turned and repositioned. will continue to monitor.
[2021-02-08 16:00] VITALS: BP 151/64
--- NOTE | 2021-02-08 17:00 | NUR ---
m/s physical meteorologist: notes po meds held due to pt condition and npo status. will continue to monitor.
--- NOTE | 2021-02-08 18:10 | NUR ---
m/s global director air and climate change: notes while mica plate layer hand doing care, noted with skin tear to right lower leg, unknown etiology. photo taken and place in chart. pt remains weak and remains npo. sodium bicarb with 20meq kcl infusing well at 50ml/hr. needs attended. no distress noted. will continue to monitor.
--- NOTE | 2021-02-08 19:20 | NUR ---
m/s dynamic balancer set up worker: notes report given to santy (rn) for continuity of care.
--- NOTE | 2021-02-08 19:30 | NUR ---
RN OPENING NOTE RECEIVED PATIENT IN BED WITH EYES CLOSED, DEEP PAIN TO AROUSE. PATIENT TACHYPNEIC 28 BPM WITH DEEP BREATHING -- ON 2LPM O2 VIA NC . NOT EXHIBITING PAIN VIA FLACC. BILA. SOFT WRIST RESTRAINTS NOTED IN PLACE. IV NaBicarb with KCL RUNNING AT 50 CC/HR AT THIS TIME. SAFETY IN PLACE. WILL CONT. TO MONITOR PATIENT.
[2021-02-08 20:00] VITALS: BP 101/71
[2021-02-08] MEDS: CEFEPIME 1 GM in IV D5W 50 ML IV SCH (21:27)
[2021-02-08] MEDS: ATORVASTATIN 10 MG TABLET PO SCH (22:00)
[2021-02-09] MEDS: D5W IV PRN (03:38)
[2021-02-09] MEDS: POTASSIUM CHLORIDE IV PRN (03:38)
[2021-02-09] MEDS: SODIUM BICARBONATE IV PRN (03:38)
[2021-02-09] MEDS: METRONIDAZOLE 500MG/ NS 100ML 500 MG in PREMIX 1 EA IV SCH ×3 (04:25→21:07)
[2021-02-09 07:06] LABS: IMMUNOGLOBULIN A, SERUM 289 mg/dL (61-437); IMMUNOGLOBULIN G, SERUM 1124 mg/dL (603-1613); IMMUNOGLOBULIN M, SERUM 42 mg/dL (15-143)
--- NOTE | 2021-02-09 07:30 | NUR ---
MS RN OPENING NOTE RECEIVED PATIENT ON BED WITH EYES CLOSED, DEEP PAIN TO AROUSE. PATIENT TACHYPNEIC 26 BPM WITH DEEP BREATHING -- ON 2LPM O2 VIA NC . NOT EXHIBITING PAIN VIA FLACC. ON BILATERAL SOFT WRIST RESTRAINTS NOTED IN PLACE. WITH IV ACCESS AT RIGHT UPPER ARM MIDLINE G18 WITH SODIUM BICARB WITH KCL AT 50ML/HR INFUSING WELL. SAFETY MEASURES IN PLACE. HOB AT 45DEGREES. BED ON LOWEST AND LOCKED POSITION, SIDE RAILS UP X3. WILL CONTINUE TO MONITOR.
[2021-02-09 07:37] LABS: BASOPHILS % (AUTO) 0.2 % (0.0-2.0); EOSINOPHILS % (AUTO) 1.1 % (0.0-6.0); HEMATOCRIT 33 % (39-51); HEMOGLOBIN 10.7 g/dL (13.5-17.5); MEAN CORPUSCULAR HGB CONC 32 g/dl (31.0-36.0); MEAN CORPUSCULAR VOLUME 98 fL (80-96); MONOCYTES # (AUTO) 1.5 K/uL (0.1-1.30); MONOCYTES % (AUTO) 5.8 % (2.0-12.0); NEUTROPHILS # (AUTO) 21.6 K/uL (1.8-8.9); NEUTROPHILS % (AUTO) 84.9 % (43.0-81.0); PLATELET COUNT (AUTO) 372 K/uL (150-450); WHITE BLOOD COUNT (AUTO) 25.5 K/uL (4.3-11.0)
--- NOTE | 2021-02-09 07:46 | NUR ---
report given to Angy for cont. of care
[2021-02-09 07:58] LABS: ALANINE AMINOTRANSFERASE 18 U/L (12-78); ALBUMIN 1.5 g/dL (3.4-5.0); ALKALINE PHOSPHATASE 87 U/L (46-116); ASPARTATE AMINOTRANSFERASE 24 U/L (15-37); BILIRUBIN,TOTAL 0.3 mg/dL (0.2-1.0); CALCIUM, SERUM 7.8 mg/dL (8.5-10.1); CARBON DIOXIDE 19 mmol/L (21-32); CHLORIDE 121 mmol/L (98-107); CREATININE 3.7 mg/dL (0.6-1.3); GLUCOSE 113 mg/dL (74-106); MAGNESIUM 2.5 mg/dL (1.8-2.4); PHOSPHORUS 3.3 mg/dL (2.5-4.9); POTASSIUM 3.8 mmol/L (3.5-5.1); SODIUM SERUM 154 mmol/L (136-145); TOTAL PROTEIN, SERUM 5.6 g/dL (6.4-8.2); UREA NITROGEN, BLOOD 70 mg/dL (7-18)
[2021-02-09 08:00] VITALS: BP 130/80
[2021-02-09] MEDS: SODIUM BICARBONATE 650 MG TABLET PO SCH ×2 (09:00→16:27)
[2021-02-09] MEDS: FINASTERIDE (5 MG) 5 MG TABLET PO SCH (09:00)
[2021-02-09] MEDS: AMLODIPINE BESYLATE 10 MG TABLET PO SCH (09:00)
[2021-02-09] MEDS: DOCUSATE SODIUM 100 MG CAPSULE PO SCH (09:00)
[2021-02-09] MEDS: CLONIDINE HCL 0.1 MG TABLET PO SCH ×2 (09:00→16:27)
[2021-02-09] MEDS: PANTOPRAZOLE 40 MG VIAL IV SCH ×2 (09:19→16:27)
[2021-02-09] MEDS: CLOTRIMAZOLE 1% 15 GM TUBE TP SCH ×2 (09:34→16:28)
--- NOTE | 2021-02-09 10:17 | NUR ---
RT NOTE: RT CALLED BY RN TO NT SUCTION. PATIENT NT SUCTIONED TO OBTAIN LARGE AMOUNT OF THICK SMITH SECRETIONS. PATIENT TOLERATED WELL. PATIENT PLACED BACK ON 2LPM VIA NC WITH SP02=98%.
--- NOTE | 2021-02-09 15:13 | NUR ---
RT NOTE: PATIENT NT SUCTIONED TO OBTAIN MODERATE AMOUNT OF THICK SMITH SECRETIONS. PATIENT TOLERATED WELL. PATIENT PLACED BACK ON 2LPM VIA NC WITH SP02=97%.
[2021-02-09 16:00] VITALS: BP 118/71
[2021-02-09] MEDS: FOLIC ACID 1 MG TABLET PO SCH (18:30)
--- NOTE | 2021-02-09 18:55 | NUR ---
MS RN CLOSING NOTE PATIENT ON BED WITH EYES CLOSED, DEEP PAIN TO AROUSE. PATIENT TACHYPNEIC 27 BPM WITH DEEP BREATHING -- ON 2LPM O2 VIA NC. ON BILATERAL SOFT WRIST RESTRAINTS NOTED IN PLACE. WITH IV ACCESS AT RIGHT UPPER ARM MIDLINE G18 WITH SODIUM BICARB WITH KCL AT 50ML/HR INFUSING WELL. SAFETY MEASURES IN PLACE. HOB AT 45DEGREES. BED ON LOWEST AND LOCKED POSITION, SIDE RAILS UP X3. WILL ENDORSE TO NEXT SHIFT FOR LUNA.
--- NOTE | 2021-02-09 19:00 | NUR ---
MS RN OPENING NOTE RECEIVED PT IN BED RESTING. AROUSABLE TO DEEP PAIN. PT IS STABLE ON 2 L OXYGEN VIA NC, NO SOB OR RESPIRATORY DISTRESS NOTED, NO C/O PAIN AT THIS TIME. RESPIRATIONS EVEN AND CRACKLES NOTED. PT IS NPO. IV ACCESS NOTED IN RIGHT UPPER LINE G #18. PT IS BB AND INCONTINENT. FALL AND SAFETY MEASURES IN PLACE AND MAINTAINED AT ALL TIMES. BED ALARM, BED IN LOW AND LOCKED POSITION, HOB ELEVATED TO SEMI FOWLERS POSITION, CALL LIGHT AND TABLE WITHIN REACH. SIDE RAILS UP X2. WILL CONTINUE WITH PLAN OF CARE.
[2021-02-09 20:00] VITALS: BP 111/86
[2021-02-09] MEDS: ATORVASTATIN 10 MG TABLET PO SCH (22:00)
[2021-02-09] MEDS: CEFEPIME 1 GM in IV D5W 50 ML IV SCH ×2 (22:00→22:53)
--- NOTE | 2021-02-10 03:00 | NUR ---
NT SUCTIONED THE PT WITH MODERATE AMOUNT OF YELLOW THICK SECRETIONS. PLACED BACK ON 2L NC. SPO2 98%
[2021-02-10] MEDS: METRONIDAZOLE 500MG/ NS 100ML 500 MG in PREMIX 1 EA IV SCH ×3 (05:25→20:08)
--- NOTE | 2021-02-10 06:30 | NUR ---
MS RN CLOSING NOTE PT REMAINED STABLE THROUGHOUT SHIFT. WILL ENDORSE TO ONCOMING NURSE FOR LUNA.
[2021-02-10 06:44] LABS: BASOPHILS # (AUTO) 0.1 K/uL (0.0-0.2); BASOPHILS % (AUTO) 0.2 % (0.0-2.0); EOSINOPHILS % (AUTO) 2.1 % (0.0-6.0); HEMATOCRIT 33 % (39-51); HEMOGLOBIN 10.6 g/dL (13.5-17.5); LYMPHOCYTES # (AUTO) 2.3 K/uL (0.8-4.8); MEAN CORPUSCULAR HGB CONC 32 g/dl (31.0-36.0); MEAN CORPUSCULAR VOLUME 96 fL (80-96); MONOCYTES # (AUTO) 1.1 K/uL (0.1-1.30); MONOCYTES % (AUTO) 5.1 % (2.0-12.0); NEUTROPHILS # (AUTO) 18.6 K/uL (1.8-8.9); NEUTROPHILS % (AUTO) 82.6 % (43.0-81.0); PLATELET COUNT (AUTO) 379 K/uL (150-450); RED BLOOD CELL COUNT(AUTO) 3.47 MIL/uL (4.5-6.0); WHITE BLOOD COUNT (AUTO) 22.5 K/uL (4.3-11.0)
[2021-02-10 07:02] LABS: ALANINE AMINOTRANSFERASE 19 U/L (12-78); ALBUMIN 1.6 g/dL (3.4-5.0); ALKALINE PHOSPHATASE 83 U/L (46-116); ASPARTATE AMINOTRANSFERASE 31 U/L (15-37); BILIRUBIN,TOTAL 0.3 mg/dL (0.2-1.0); CALCIUM, SERUM 8.1 mg/dL (8.5-10.1); CARBON DIOXIDE 21 mmol/L (21-32); CHLORIDE 123 mmol/L (98-107); CREATININE 3.8 mg/dL (0.6-1.3); GLUCOSE 112 mg/dL (74-106); MAGNESIUM 2.5 mg/dL (1.8-2.4); PHOSPHORUS 3.3 mg/dL (2.5-4.9); TOTAL PROTEIN, SERUM 5.8 g/dL (6.4-8.2); UREA NITROGEN, BLOOD 69 mg/dL (7-18)
[2021-02-10 07:13] LABS: SODIUM SERUM 156 mmol/L (136-145)
--- NOTE | 2021-02-10 07:15 | NUR ---
MS RN OPENING NOTE RECEIVED PT IN BED ASLEEP BUT AROUSABLE TO PAIN. PT RECEIVED ON 4LPM OXYGEN VIA NC WITH NO SOB OR RESPIRATORY DISTRESS NOTED AT THIS TIME. NO SIGNS AND SYMPTOMS OF PAIN NOTED AT THIS TIME. RESPIRATIONS EVEN AND CRACKLES NOTED. PT KEPT ON HIGH BACK REST AND NPO ORDERED. WITH IV ACCESS ON THE RIGHT UPPER ARM G #18, PATENT AND INTACT. WITH BILATERAL SOFT WRIST RESTRAINT WITH GOOD CIRCULATION. FALL AND SAFETY MEASURES IN PLACE AND MAINTAINED AT ALL TIMES WITH BED ALARM, BED IN LOW AND LOCKED POSITION, HOB ELEVATED TO SEMI FOWLERS POSITION, CALL LIGHT AND TABLE WITHIN REACH. SIDE RAILS UP X2. WILL CONTINUE TO MONITOR PATIENT.
--- NOTE | 2021-02-10 07:15 | NUR ---
RECEIVED A CALL FROM [facility] AT THIS TIME REPORTING PT'S SODIUM OF 156. TRIED CALLING THE AM DOCTOR BUT THE LIST WASN'T OUT YET. ENDORSED TO AKIN VARGAS RN FOR PT LUNA AND TO FOLLOW UP WITH THE RESULT.
[2021-02-10] MEDS: FINASTERIDE (5 MG) 5 MG TABLET PO SCH (09:00)
[2021-02-10] MEDS: AMLODIPINE BESYLATE 10 MG TABLET PO SCH (09:00)
[2021-02-10] MEDS: CLONIDINE HCL 0.1 MG TABLET PO SCH ×2 (09:00→17:00)
[2021-02-10] MEDS: DOCUSATE SODIUM 100 MG CAPSULE PO SCH (09:00)
[2021-02-10] MEDS: SODIUM BICARBONATE 650 MG TABLET PO SCH ×2 (09:00→17:00)
[2021-02-10] MEDS: FOLIC ACID 1 MG TABLET PO SCH (09:00)
[2021-02-10] MEDS: PANTOPRAZOLE 40 MG VIAL IV SCH ×2 (09:57→17:27)
--- NOTE | 2021-02-10 10:30 | NUR ---
MS RN NOTE SEEN BY LUIS GANN AND DR. HUNT
[2021-02-10 10:35] LABS: ABG BASE EXCESS -7.3 mmol/L; ABG OXYGEN SATURATION 95.7 % (92.0-98.5); ABG PCO2 25.2 mmHg (35.0-45.0); ABG PH 7.412 (7.350-7.450); ABG PO2 82.2 mmHg (75.0-100.0); AaDO2 87.7 mmHg; COHb 0.3 % (0.5-1.5); MetHb 0.2 % (0.0-1.5); O2Hb 95.2 % (94.0-97.0); SITE, ABG Right Radial; VENT MODE, BG 2LPM NC
[2021-02-10 11:00] VITALS: BP 121/55
[2021-02-10] MEDS ORDERED: IV D5W 1,000 ML IV ONE (11:00)
[2021-02-10] MEDS: CLOTRIMAZOLE 1% 15 GM TUBE TP SCH ×2 (12:16→17:31)
[2021-02-10] MEDS ORDERED: METRONIDAZOLE 500 MG TABLET PO SCH (13:00)
[2021-02-10] MEDS: MORPHINE SULFATE INJ 2 MG/ML DISP.SYRIN IV PRN (14:04)
[2021-02-10 17:19] LABS: EOSINOPHILS % (MANUAL) 1 % (0-4); LYMPHOCYTES % (MANUAL) 11 % (16-48); MONOCYTES % (MANUAL) 3 % (0-11.0); NEUTROPHILS % (MANUAL) 85 (42-76)
--- NOTE | 2021-02-10 18:37 | NUR ---
MS RN CLOSING NOTE PT IN BED ASLEEP BUT AROUSABLE TO PAIN. PT RECEIVED ON 3-4LPM OXYGEN VIA NC WITH NO SOB OR RESPIRATORY DISTRESS NOTED AT THIS TIME. NO SIGNS AND SYMPTOMS OF PAIN NOTED AT THIS TIME. RESPIRATIONS EVEN AND CRACKLES NOTED. PT KEPT ON HIGH BACK REST AND NPO ORDERED. WITH IV ACCESS ON THE RIGHT UPPER ARM G #18, PATENT AND INTACT. WITH BILATERAL SOFT WRIST RESTRAINT WITH GOOD CIRCULATION. FALL AND SAFETY MEASURES IN PLACE AND MAINTAINED AT ALL TIMES WITH BED ALARM, BED IN LOW AND LOCKED POSITION, HOB ELEVATED TO SEMI FOWLERS POSITION, CALL LIGHT AND TABLE WITHIN REACH. SIDE RAILS UP X2. WILL ENDORSE PATIENT FOR CONTINUITY OF PAIN.
--- NOTE | 2021-02-10 19:00 | NUR ---
MS RN OPENING NOTE RECEIVED PT IN BED RESTING. AROUSABLE TO DEEP PAIN. PT IS STABLE ON 2 L OXYGEN VIA NC, NO SOB OR RESPIRATORY DISTRESS NOTED, NO C/O PAIN AT THIS TIME. RESPIRATIONS EVEN AND CRACKLES NOTED. PT IS NPO. IV ACCESS NOTED IN RIGHT UPPER ARM G #18. PT IS BB AND INCONTINENT. FALL AND SAFETY MEASURES IN PLACE AND MAINTAINED AT ALL TIMES. BED ALARM, BED IN LOW AND LOCKED POSITION, HOB ELEVATED TO SEMI FOWLERS POSITION, CALL LIGHT AND TABLE WITHIN REACH. SIDE RAILS UP X2. WILL CONTINUE WITH PLAN OF CARE.
[2021-02-10 20:00] VITALS: BP 143/92
[2021-02-10] MEDS: ATORVASTATIN 10 MG TABLET PO SCH (22:00)
--- NOTE | 2021-02-11 06:30 | NUR ---
MS RN CLOSING NOTE PT SLEEPING AT THE MOMENT BUT EASILY AROUSED. . PT REMAINED STABLE THROUGHOUT SHIFT. WILL ENDORSE TO ONCOMING NURSE FOR LUNA.
--- NOTE | 2021-02-11 07:40 | NUR ---
MS RN OPENING NOTES RECEIVED PATIENT IN BED, ASLEEP. PATIENT ON OXYGEN THERAPY @ 2 LPM VIA NASAL CANULA; BREATHING EVEN AND UNLABORED AT THIS TIME; NO SOB NOTED. NO S/S OF PAIN SUCH FACIAL GRIMACING, MOANING OR GUARDING NOTED. DUANE MIDLINE G # 18; PRESENT AND INTACT. PATIENT NPO AT THIS TIME AWAITING REPEAT SWALLOW EVAL. SAFETY PRECAUTIONS IN PLACE; BED IN LOW POSITION AND LOCKED, RAILS UP X2, CALL LIGHT WITHIN REACH. WILL CONTINUE TO MONITOR PATIENT.
--- NOTE | 2021-02-11 07:51 | NUR ---
MS RN NOTES REPORT GIVEN TO NURSE CAMPOVERDE FOR LUNA.
[2021-02-11 08:00] VITALS: BP 118/68
[2021-02-11] MEDS: PANTOPRAZOLE 40 MG VIAL IV SCH ×2 (08:45→17:34)
[2021-02-11] MEDS: DOCUSATE SODIUM 100 MG CAPSULE PO SCH (09:00)
[2021-02-11] MEDS: SODIUM BICARBONATE 650 MG TABLET PO SCH ×2 (09:00→17:34)
[2021-02-11] MEDS: AMLODIPINE BESYLATE 10 MG TABLET PO SCH (09:00)
[2021-02-11] MEDS: FINASTERIDE (5 MG) 5 MG TABLET PO SCH (09:00)
[2021-02-11] MEDS: CLOTRIMAZOLE 1% 15 GM TUBE TP SCH ×2 (09:00→17:59)
[2021-02-11] MEDS: FOLIC ACID 1 MG TABLET PO SCH (09:00)
[2021-02-11] MEDS: CLONIDINE HCL 0.1 MG TABLET PO SCH ×2 (09:00→17:55)
--- NOTE | 2021-02-11 09:45 | NUR ---
WITHHELD SCHEDULED PO MEDS AT THIS TIME. PT MAINTAINED NPO DUE TO SWALLOW EVAL.
[2021-02-11 11:57] LABS: *SPE A/G RATIO 0.5 (0.7-1.7); *SPE ALPHA-1-GLOBULIN 0.4 g/dL (0.0-0.4); *SPE ALPHA-2-GLOBULIN 1.3 g/dL (0.4-1.0); *SPE BETA GLOBULIN 0.6 g/dL (0.7-1.3); *SPE M-SPIKE Not Observed g/dL (Not Observed)
[2021-02-11] MEDS: IV D5W 1,000 ML IV SCH (15:03)
[2021-02-11 16:00] VITALS: BP 116/67
[2021-02-11] MEDS ORDERED: LIDOCAINE 0.5% HCL 50 ML VIAL IJ ONE (17:30)
--- NOTE | 2021-02-11 17:30 | NUR ---
XYLOCAINE IJ NOT ADMINISTERED AT THIS TIME. PER DR. FARRELL, XYLOCAINE IJ WILL BE ADMINISTERED FOR BONE MARROW ASPIRATION AND BIOPSY PROCEDURE ON 02/12/21.
--- NOTE | 2021-02-11 18:52 | NUR ---
MS RN CLOSING NOTE PT IS IN BED WITH EYES CLOSED, AROUSABLE TO DEEP PAIN. PT ON 2LPM O2 VIA NC TOLERATING WELL. NO SOB OR S/S OF RESPIRATORY DISTRESS NOTED. NO SIGNS OF PAIN SUCH FACIAL GRIMACING NOTED AT THIS TIME. IV ACCESS IN DUANE MIDLINE #18, INTACT AND PATENT. ALL NEEDS HAVE BEEN MET. SAFETY PRECAUTIONS MAINTAINED AT ALL TIMES. BED IN LOWEST LOCKED POSITION, HOB ELEVATED, SIDE RAILS UP X2. CALL LIGHT AND TABLE WITHIN REACH. WILL ENDORSE TO ONCOMING NURSE FOR LUNA.
--- NOTE | 2021-02-11 19:30 | NUR ---
MS RN OPENING NOTES PATIENT IS RESTING IN BED WITH EYES OPEN AND AROUSABLE TO DEEP PAIN. PATIENT IS ON 2LPM OF O2 VIA NC WITH NO RESPIRATORY DISTRESS NOTED. MARTIN MIDLINE G#18 NOTED, WHICH IS INTACT, PATENT, AND FLUSHING WELL. PATIENT'S IN NO ACUTE DISTRESS AT THIS TIME. SAFETY PRECAUTIONS IN PLACE: BED LOCKED, BED ALARM ON, SIDE RAILS UPX3, AND CALL LIGHT WITHIN REACH OF THE PATIENT. WILL CONTINUE TO MONITOR THE PATIENT.
[2021-02-11 20:00] VITALS: BP 92/61
[2021-02-11 20:36] LABS: BASOPHILS # (AUTO) 0.1 K/uL (0.0-0.2); BASOPHILS % (AUTO) 0.5 % (0.0-2.0); EOSINOPHILS % (AUTO) 2.4 % (0.0-6.0); HEMATOCRIT 36 % (39-51); HEMOGLOBIN 11.3 g/dL (13.5-17.5); LYMPHOCYTES # (AUTO) 1.9 K/uL (0.8-4.8); LYMPHOCYTES % (AUTO) 12.2 % (20.0-44.0); MEAN CORPUSCULAR HGB CONC 31 g/dl (31.0-36.0); MEAN CORPUSCULAR VOLUME 98 fL (80-96); MONOCYTES # (AUTO) 0.9 K/uL (0.1-1.30); MONOCYTES % (AUTO) 5.5 % (2.0-12.0); NEUTROPHILS # (AUTO) 12.5 K/uL (1.8-8.9); NEUTROPHILS % (AUTO) 79.4 % (43.0-81.0); PLATELET COUNT (AUTO) 353 K/uL (150-450); RED BLOOD CELL COUNT(AUTO) 3.68 MIL/uL (4.5-6.0); WHITE BLOOD COUNT (AUTO) 15.8 K/uL (4.3-11.0)
[2021-02-11 21:01] LABS: ALANINE AMINOTRANSFERASE 17 U/L (12-78); ALBUMIN 1.7 g/dL (3.4-5.0); ALKALINE PHOSPHATASE 73 U/L (46-116); ASPARTATE AMINOTRANSFERASE 33 U/L (15-37); BILIRUBIN,TOTAL 0.3 mg/dL (0.2-1.0); CALCIUM, SERUM 8.1 mg/dL (8.5-10.1); CARBON DIOXIDE 22 mmol/L (21-32); CHLORIDE 124 mmol/L (98-107); CREATININE 3.5 mg/dL (0.6-1.3); GLUCOSE 106 mg/dL (74-106); MAGNESIUM 2.3 mg/dL (1.8-2.4); PHOSPHORUS 3.3 mg/dL (2.5-4.9); POTASSIUM 4.2 mmol/L (3.5-5.1); TOTAL PROTEIN, SERUM 6.1 g/dL (6.4-8.2); UREA NITROGEN, BLOOD 63 mg/dL (7-18)
[2021-02-11 21:03] LABS: SODIUM SERUM 157 mmol/L (136-145)
[2021-02-11] MEDS: ATORVASTATIN 10 MG TABLET PO SCH (21:49)
[2021-02-12 00:03] LABS: EOSINOPHILS % (MANUAL) 1 % (0-4); LYMPHOCYTES % (MANUAL) 11 % (16-48); MONOCYTES % (MANUAL) 1 % (0-11.0); NEUTROPHILS % (MANUAL) 87 (42-76)
[2021-02-12] MEDS: IV D5W 1,000 ML IV SCH ×2 (03:34→16:41)
--- NOTE | 2021-02-12 04:40 | NUR ---
MS RN NOTES APPLIED MEPILEX TO PATIENT'S SACRAL AREA. WILL CONTINUE TO MONITOR THE PATIENT.
--- NOTE | 2021-02-12 07:30 | NUR ---
MS RN CLOSING NOTES PATIENT IS RESTING IN BED WITH EYES OPEN AND AROUSABLE TO DEEP PAIN. PATIENT IS ON 2LPM OF O2 VIA NC WITH NO RESPIRATORY DISTRESS NOTED. MARTIN MIDLINE G#18 NOTED, WHICH IS INTACT, PATENT, AND FLUSHING WELL. PATIENT'S IN NO ACUTE DISTRESS AT THIS TIME. SAFETY PRECAUTIONS IN PLACE: BED LOCKED, BED ALARM ON, SIDE RAILS UPX3, AND CALL LIGHT WITHIN REACH OF THE PATIENT. ENDORSED CARE TO THE DAY SHIFT NURSE.
--- NOTE | 2021-02-12 07:37 | NUR ---
MS RN OPENING NOTE PT FOUND ASLEEP IN BED. HE DOES NOT PRESENT WITH ANY S/S OF DISTRESS OR PAIN (E.G. NO GRIMACING); PT HAS A MARTIN MIDLINE 18 G D5W RUNNING AT 75ML/HR CURRENTLY. WILL CONTINUE TO MONITOR PT THROUGHOUT SHIFT.
[2021-02-12 08:00] VITALS: BP_SYST 137; BP_SYST 156; BP_DIAS 76; BP_DIAS 89
--- NOTE | 2021-02-12 08:14 | NUR ---
RN NOTES WINNIE, ALISHA, AT BEDSIDE FOR ST F/U. PATIENT UNABLE TO SWALLOW ICE CHIPS AND REFUSES TO EAT WHEN ATTEMPTING TO FEED PATIENT. ASPIRATION PRECS MAINTAINED AT THIS TIME. HORTICULTURAL FARM MANAGER WILL INPUT RECS APPLICABLE.
[2021-02-12] MEDS: AMLODIPINE BESYLATE 10 MG TABLET PO SCH (09:00)
[2021-02-12] MEDS: DOCUSATE SODIUM 100 MG CAPSULE PO SCH (09:00)
[2021-02-12] MEDS: FOLIC ACID 1 MG TABLET PO SCH (09:00)
[2021-02-12] MEDS: FINASTERIDE (5 MG) 5 MG TABLET PO SCH (09:00)
[2021-02-12] MEDS: SODIUM BICARBONATE 650 MG TABLET PO SCH (09:00)
[2021-02-12] MEDS: CLONIDINE HCL 0.1 MG TABLET PO SCH ×2 (09:00→17:00)
[2021-02-12] MEDS: PANTOPRAZOLE 40 MG VIAL IV SCH ×2 (09:00→17:24)
[2021-02-12] MEDS: CLOTRIMAZOLE 1% 15 GM TUBE TP SCH ×2 (09:51→17:24)
--- NOTE | 2021-02-12 09:52 | NUR ---
MS RN NOTE ORAL CARE INCLUDING ORAL SUCTIONING WAS PERFORMED ON PT. SIGNIFICANT ORAL DEBRIS WAS REMOVED. PT APPEARS COMFORTABLE WITH NO S/S OF DISTRESS.
[2021-02-12] MEDS: MORPHINE SULFATE INJ 2 MG/ML DISP.SYRIN IV PRN (12:39)
--- NOTE | 2021-02-12 14:00 | NUR ---
RN NOTES BONE MARROW BIOPSY AND ASPIRATION PROCEDURE DONE BY DR. FARRELL AT BEDSIDE. SPECIMEN OBTAINED.
[2021-02-12 14:41] LABS: BASOPHILS # (AUTO) 0.1 K/uL (0.0-0.2); BASOPHILS % (AUTO) 0.5 % (0.0-2.0); EOSINOPHILS % (AUTO) 2.6 % (0.0-6.0); HEMATOCRIT 33 % (39-51); HEMOGLOBIN 10.6 g/dL (13.5-17.5); LYMPHOCYTES # (AUTO) 1.9 K/uL (0.8-4.8); LYMPHOCYTES % (AUTO) 10.8 % (20.0-44.0); MEAN CORPUSCULAR HGB CONC 32 g/dl (31.0-36.0); MEAN CORPUSCULAR VOLUME 96 fL (80-96); MONOCYTES # (AUTO) 0.9 K/uL (0.1-1.30); NEUTROPHILS # (AUTO) 14.5 K/uL (1.8-8.9); NEUTROPHILS % (AUTO) 81.1 % (43.0-81.0); PLATELET COUNT (AUTO) 326 K/uL (150-450); WHITE BLOOD COUNT (AUTO) 17.9 K/uL (4.3-11.0)
--- NOTE | 2021-02-12 15:30 | NUR ---
RN NOTES BONE MARROW BIOPSY ASPIRATE AND SPECIMEN SLIDES DELIVERED TO LAB.
--- NOTE | 2021-02-12 16:30 | NUR ---
RN NOTES PATIENT'S SISTER, WARREN, CURRENTLY AT BEDSIDE TO SEE PATIENT. UPDATED W/ PLAN OF CARE; COPIES OF POA PAPERWORK MADE AND PLACED IN PATIENT'S CHART.
--- NOTE | 2021-02-12 16:51 | NUR ---
RN NOTES PATIENT RETURNED FROM CT PROCEDURE VIA GURNEY, ACCOMPANIED BY 1 OPHTHALMIC SURGICAL ASSISTANT.
--- NOTE | 2021-02-12 17:13 | NUR ---
RN NOTE PER ORDER, NGT WAS PLACED RT NARIS. CHEST X-RAY ORDERED FOR TUBE PLACEMENT VERIFICATION. PT TOLERATED THE PROCEDURE FAIRLY WELL WITH MINIMAL DISCOMFORT.
--- NOTE | 2021-02-12 17:55 | NUR ---
RN NOTES CHEST X-RAY DONE FOR NGT PLACEMENT CONFIRMATION, AWAITING FOR RESULT.
--- NOTE | 2021-02-12 18:39 | NUR ---
MS NURSE NOTE IMAGING CONFIRMED THROUGH CHEST X-RAY THAT NGT IS IN STOMACH. WILL INITIATE TUBE FEEDING INDICATED.
[2021-02-12] MEDS: JEVITY 1.2 CAL 1,000 ML BOTTLE GT PRN (18:50)
[2021-02-12 18:57] LABS: CALCIUM, SERUM 8.2 mg/dL (8.5-10.1); CARBON DIOXIDE 20 mmol/L (21-32); CHLORIDE 123 mmol/L (98-107); CREATININE 3.3 mg/dL (0.6-1.3); GLUCOSE 107 mg/dL (74-106); POTASSIUM 4.3 mmol/L (3.5-5.1); UREA NITROGEN, BLOOD 62 mg/dL (7-18)
--- NOTE | 2021-02-12 18:57 | NUR ---
MS RN NOTE PT STARTED ON JEVITY AT 30CC/HR PER ORDER.
[2021-02-12 19:04] LABS: SODIUM SERUM 157 mmol/L (136-145)
--- NOTE | 2021-02-12 19:05 | NUR ---
MS RN NURSE CLOSING NOTE PT ASLEEP IN BED. PT HAS HAD A TRYING DAY HAVING TO UNDERGO BONE MARROW BIOPSY, NGT PLACEMENT, AND THE OTHER DAILY TASKS OF THE FLOOR FOR PT CARE. PT HAD FAMILY AND FRIENDS COME VISIT AND THEY PROVIDED SOME COMFORT. PT CURRENTLY RECEIVING NGT NUTRITION. SAFETY MEASURES IN PLACE, SUCH CALL LIGHT WITH PT, RAILS UP X2, BED AT LOWEST POSITION. WILL ENDORSE TO THE NIGHT NURSE FOR LUNA.
--- NOTE | 2021-02-12 19:55 | NUR ---
MS RN OPENING NOTES PATIENT IS RESTING IN BED WITH EYES OPEN AND AROUSABLE TO DEEP PAIN. PATIENT IS ON 2LPM OF O2 VIA NC WITH NO RESPIRATORY DISTRESS NOTED. MARTIN MIDLINE G#18 NOTED, WHICH IS INTACT, PATENT, AND FLUSHING WELL. PATIENT HAS A CONTINUOUS NGT FEEDING. PATIENT'S IN NO ACUTE DISTRESS AT THIS TIME. SAFETY PRECAUTIONS IN PLACE: BED LOCKED, BED ALARM ON, SIDE RAILS UPX3, AND CALL LIGHT WITHIN REACH OF THE PATIENT. WILL CONTINUE TO MONITOR THE PATIENT.
[2021-02-12 20:44] VITALS: BP 115/84
[2021-02-12] MEDS: ATORVASTATIN 10 MG TABLET PO SCH (22:24)
[2021-02-13] MEDS ORDERED: CEFTRIAXONE 1 G in IV D5W 50 ML IV SCH (01:00)
[2021-02-13] MEDS ORDERED: AZITHROMYCIN 500 MG in IV D5W 250 ML IV SCH ×2 (01:00→23:00)
--- NOTE | 2021-02-13 01:10 | NUR ---
MS RN NOTES NOTIFIED DR. DUKE ABOUT PATIENT'S RECENT RESULTS OF CT CHEST WO CONTRAST SHOWING EVIDENCE OF PNA. DR. DUKE GAVE ORDERS TO TRANSFER PATIENT TO THE [facility], DO ECHO, DO COVID PCR TEST, AND START THE PATIENT ON AZITHROMYCIN 500MG IV Q12 HOURS AND ROCEPHIN 1GM DAILY STARTING NOW. INPUTTED THESE ORDERS AND ENDORSED THE ORDERS TO NURSE STINSON FROM [facility].
--- NOTE | 2021-02-13 01:14 | NUR ---
MS RN NOTES PATIENT WAS TRANSFERRED OUT OF THE UNIT TO THE [facility] AT APPROXIMATELY 0110 ACCOMPANIED BY NURSES PARMJIT. PATIENT WAS IN NO ACUTE DISTRESS. MARTIN MIDLINE G#18 NOTED, WHICH IS INTACT, PATENT, AND FLUSHING WELL. NGT TUBE WAS INTACT AND FLUSHED WITH NS. PATIENT'S IN NO ACUTE DISTRESS AT THIS TIME. ENDORSED CARE TO NURSE STINSON.
[2021-02-13 01:30] VITALS: BP 108/65
[2021-02-13] MEDS ORDERED: CEFTRIAXONE 1 G VIAL ONE (02:36)
[2021-02-13] MEDS ORDERED: AZITHROMYCIN 500 MG VIAL ONE (02:44)
--- NOTE | 2021-02-13 02:45 | NUR ---
RN NOTE 0115 RECEIVED PT FROM [facility]. PT UNABLE TO COMMUNICATE, RESPONDS TO STIMULI. PT CONGESTED, CRACKLES NOTED, DID SUCTION WELL THE RT NOTED WITH THICK WHITE SECRETIONS, PT UNABLE TO EXPECTORATE SECRETION. KEPT ON A HIGH FOWLERS. NGT PATENT AND INPLACE, NO RESIDUALS WERE NOTED. RESTARTED JEVITY FEEDING AT 30ML/HR. PT WITH LOOSE BLACK TARRY STOOL, DR DUKE NOTIFIED. OBTAINED ORDER FOR OCCULT BLOOD, STOOL COLLECTED. WILL GIVE DUE IV ATB. ALL SAFETY MEASURES IN PLACE. WILL CONTINUE TO MONITOR.
[2021-02-13] MEDS: IV D5W 1,000 ML IV SCH ×3 (03:38→22:27)
[2021-02-13 04:00] VITALS: BP 105/59
--- NOTE | 2021-02-13 04:30 | NUR ---
RN NOTE COVID SWAB DONE, SEND TO LABS
--- NOTE | 2021-02-13 07:20 | NUR ---
RN NOTE PT REMAINS IN BED, NO CHANGES IN LOC. PT TACHYPNEIC, ON FREQUENT VISUALS CHECKS. PT ON 3L O2, SATING AT 97%. KEPT HOB ELEVATED. CONTINUE ON GT FEEDING. NO SIGNS OF ASPIRATION NOTED. DUE IV ATBS WERE GIVEN. CONTINUE ON D5W AT 100ML/HR. ENDORSED TO NEXT SHIFT NURSE FOR LUNA.
--- NOTE | 2021-02-13 07:40 | NUR ---
MS/RN OPENING NOTE RECEIVED PT IN BED. NON-VERBAL BUT OPENS EYES. CURRENTLY ON 2LPM OF O2 VIA NC SHOWING NO S/S OF RESP DISTRESS. BREATHING EVEN AND UNLABORED. NO SIGNS OF RESP DISTRESS. IV ACCESS ON RIGHT UPPER ARM MIDLINE IS PATENT, AND INTACT WITH IV RUNNING D5W @ 100ML/HR. ON JEVITY FEEDING VIA NASOGASTRIC TUBE AT 30CC/HR. SAFETY MEASURES IN PLACED. BILATERAL RESTRAINTS ON FOR SAFETY. BED LOCKED AND IN LOWEST POSITION. SIDE RAILS UPX3. CALL LIGHT WITHIN REACH. WILL CONTINUE TO MONITOR.
[2021-02-13 08:09] LABS: OCCULT BLOOD STOOL POSITIVE (NEGATIVE)
[2021-02-13] MEDS: CLONIDINE HCL 0.1 MG TABLET PO SCH ×3 (09:00→16:25)
[2021-02-13 09:23] LABS: BASOPHILS # (AUTO) 0.1 K/uL (0.0-0.2); BASOPHILS % (AUTO) 0.6 % (0.0-2.0); EOSINOPHILS % (AUTO) 2.5 % (0.0-6.0); HEMATOCRIT 36 % (39-51); HEMOGLOBIN 11.1 g/dL (13.5-17.5); LYMPHOCYTES # (AUTO) 2.1 K/uL (0.8-4.8); MEAN CORPUSCULAR HGB CONC 31 g/dl (31.0-36.0); MEAN CORPUSCULAR VOLUME 103 fL (80-96); MONOCYTES % (AUTO) 5.7 % (2.0-12.0); NEUTROPHILS # (AUTO) 14.2 K/uL (1.8-8.9); NEUTROPHILS % (AUTO) 79.2 % (43.0-81.0); PLATELET COUNT (AUTO) 310 K/uL (150-450); RED BLOOD CELL COUNT(AUTO) 3.45 MIL/uL (4.5-6.0); WHITE BLOOD COUNT (AUTO) 17.9 K/uL (4.3-11.0)
[2021-02-13] MEDS: AMLODIPINE BESYLATE 10 MG TABLET PO SCH (09:40)
[2021-02-13] MEDS: FOLIC ACID 1 MG TABLET PO SCH (09:40)
[2021-02-13] MEDS: PANTOPRAZOLE 40 MG VIAL IV SCH ×2 (09:40→16:25)
[2021-02-13] MEDS: DOCUSATE SODIUM LIQ 100 MG/10 ML UDC GT SCH (09:40)
[2021-02-13] MEDS: CLOTRIMAZOLE 1% 15 GM TUBE TP SCH ×2 (09:41→16:26)
[2021-02-13] MEDS: FINASTERIDE (5 MG) 5 MG TABLET PO SCH (09:41)
--- NOTE | 2021-02-13 09:43 | NUR ---
MS/RN NOTES- VIRALTHEKIRBY CLONIDINE WITHHELD CLONIDINE DUE TO LOW BP OF 110/65. WILL CONTINUE TO MONITOR.
[2021-02-13 10:26] VITALS: BP 110/64
[2021-02-13 11:29] LABS: NEUTROPHILS % (MANUAL) 74 (42-76)
[2021-02-13 11:30] LABS: BAND % (MANUAL) 1 % (0.0-5.0); EOSINOPHILS % (MANUAL) 4 % (0-4); LYMPHOCYTES % (MANUAL) 14 % (16-48); METAMYELOCYTES % 1 % (0-0); MONOCYTES % (MANUAL) 4 % (0-11.0); MYELOCYTES % 2 % (0-0)
[2021-02-13] MEDS: MORPHINE SULFATE INJ 2 MG/ML DISP.SYRIN IV PRN (15:13)
[2021-02-13 16:02] VITALS: BP 95/56
--- NOTE | 2021-02-13 16:26 | NUR ---
MS/RN NOTES- CLONIDINE WITHHELD CLONIDINE WITHHELD DUE TO LOW BP READING OF 95/56, HR- 108. WILL MONITOR.
[2021-02-13] MEDS: JEVITY 1.2 CAL 1,000 ML BOTTLE GT PRN (18:22)
--- NOTE | 2021-02-13 19:11 | NUR ---
MS/RN CLOSING NOTE PT IN BED. NON-VERBAL BUT OPENS EYES. CURRENTLY ON 2LPM OF O2 VIA NC SHOWING NO S/S OF RESP DISTRESS. BREATHING EVEN AND UNLABORED. NO SIGNS OF RESP DISTRESS. IV ACCESS ON RIGHT UPPER ARM MIDLINE IS PATENT, AND INTACT WITH IV RUNNING D5W @ 100ML/HR. ON JEVITY 1.2 FEEDING VIA NASOGASTRIC TUBE AT 30CC/HR. SAFETY MEASURES IN PLACED. BILATERAL RESTRAINTS ON FOR SAFETY. ALL NEEDS MET. BED LOCKED AND IN LOWEST POSITION. SIDE RAILS UPX3. CALL LIGHT WITHIN REACH. WILL ENDORSE TO THE NEXT SHIFT FOR LUNA.
--- NOTE | 2021-02-13 19:30 | NUR ---
RN NOTES RECEIVED PT FOR LUNA. PATIENT IN NO S/SX OF ACUTE DISTRESS AT THIS TIME. WILL ENSURE SAFETY MEASURES WITHIN THE SHIFT. PATIENT BED ALARM IS ON. HEAD OF BED ELEVATED. BED IS LOCKED, IN LOWEST POSITION AND SIDE RAILS UP. CALL LIGHT WITHIN REACH OF THE PATIENT. APPLICABLE ISOLATION PRECAUTIONS IN PLACE. WILL CONTINUE TO MONITOR AND REASSESS FOR ANY CHANGES AND WILL CARRY OUT ANY ONGOING AND ACTIVE MD ORDER.
[2021-02-13] MEDS ORDERED: CEFTRIAXONE 2 G in IV D5W 100 ML IV SCH (21:00)
[2021-02-13] MEDS: ATORVASTATIN 10 MG TABLET PO SCH (21:10)
[2021-02-14 04:00] VITALS: BP 120/75
--- NOTE | 2021-02-14 06:55 | NUR ---
RN CLOSING NOTE: PATIENT REMAINS IN ROOM IN NO SIGNS OF RESPIRATORY DISTRESS, PATIENT STILL ON 2L OF O2 VIA NC;TOLERATING WELL SATURATING @ >95% SP02. SAFETY MEASURES IMPLEMENTED, BED IN LOWEST POSITION, LOCKED, SIDE RAILS UP, CALL LIGHT WITHIN REACH. ALL NEEDS AND ORDERS ADDRESSED DURING THE SHIFT. IV ACCESS MAINTAINED INTACT, SECURED AND FLUSHING WELL. ALL DUE MEDS GIVEN ORDERED & SCHEDULED ; PATIENT TOLERATED WELL. PATIENT KEPT CLEAN AND COMFORTABLE WITHIN THE SHIFT. PATIENT ENDORSED TO INCOMING SHIFT RN WITH STABLE VITAL SIGN AND FOR CONTINUITY OF CARE.
--- NOTE | 2021-02-14 07:32 | NUR ---
RN OPENING NOTE RECEIVED PATIENT ASLEEP IN BED, EASY TO AROUSE. NON-VERBAL A/O X 1. NO S/SX OF DISTRESS NOTED. PATIENT ON 2L O2 VIA NC SATURATING >95%. BREATHING IS EVEN AND UNLABORED; NO SOB NOTED. NO S/SX OF DISTRESS NOTED. IV ACCESS MARTIN MIDLINE PATENT AND INTACT. SAFETY PRECAUTIONS IN PLACE; BED IN LOW POSITION AND LOCKED, SIDE RAILS UP X2, CALL LIGHT WITHIN REACH. WILL CONTINUE TO MONITOR PATIENT.
[2021-02-14] MEDS: IV D5W 1,000 ML IV SCH ×2 (08:39→18:07)
[2021-02-14] MEDS: FINASTERIDE (5 MG) 5 MG TABLET PO SCH (08:40)
[2021-02-14] MEDS: PANTOPRAZOLE 40 MG VIAL IV SCH ×2 (08:40→16:27)
[2021-02-14] MEDS: CLONIDINE HCL 0.1 MG TABLET PO SCH ×2 (08:40→16:22)
[2021-02-14] MEDS: DOCUSATE SODIUM LIQ 100 MG/10 ML UDC GT SCH (08:40)
[2021-02-14] MEDS: AMLODIPINE BESYLATE 10 MG TABLET PO SCH (08:41)
[2021-02-14] MEDS: FOLIC ACID 1 MG TABLET PO SCH (08:41)
[2021-02-14] MEDS: CLOTRIMAZOLE 1% 15 GM TUBE TP SCH ×2 (08:49→16:27)
[2021-02-14 12:00] VITALS: BP 118/68
[2021-02-14] MEDS: JEVITY 1.2 CAL 1,000 ML BOTTLE GT PRN (18:12)
--- NOTE | 2021-02-14 18:53 | NUR ---
RN CLOSING NOTE PATIENT ASLEEP IN BED, EASY TO AROUSE. NON-VERBAL A/O X 1. NO S/SX OF DISTRESS NOTED. PATIENT ON 2L O2 VIA NC SATURATING >95%. NO SOB NOTED. NGT IN PLACE WITH JEVITY 1.2 RUNNING @30MLS/HR. IV ACCESS MARTIN MIDLINE PATENT AND INTACT. SAFETY PRECAUTIONS IN PLACE; BED IN LOW POSITION AND LOCKED, SIDE RAILS UP X2, CALL LIGHT WITHIN REACH. WILL ENDORSE TO NEXT NURSE.
[2021-02-14 20:00] VITALS: BP 106/62
[2021-02-14] MEDS: ATORVASTATIN 10 MG TABLET PO SCH (21:41)
[2021-02-15 04:00] VITALS: BP 97/70
[2021-02-15] MEDS: IV D5W 1,000 ML IV SCH ×2 (04:31→14:27)
[2021-02-15 07:03] LABS: BASOPHILS % (AUTO) 0.2 % (0.0-2.0); EOSINOPHILS % (AUTO) 3.7 % (0.0-6.0); HEMATOCRIT 32 % (39-51); HEMOGLOBIN 9.9 g/dL (13.5-17.5); LYMPHOCYTES # (AUTO) 1.5 K/uL (0.8-4.8); LYMPHOCYTES % (AUTO) 11.9 % (20.0-44.0); MEAN CORPUSCULAR HGB CONC 31 g/dl (31.0-36.0); MEAN CORPUSCULAR VOLUME 101 fL (80-96); MONOCYTES # (AUTO) 0.9 K/uL (0.1-1.30); MONOCYTES % (AUTO) 6.7 % (2.0-12.0); NEUTROPHILS # (AUTO) 10.1 K/uL (1.8-8.9); NEUTROPHILS % (AUTO) 77.5 % (43.0-81.0); PLATELET COUNT (AUTO) 215 K/uL (150-450); RED BLOOD CELL COUNT(AUTO) 3.13 MIL/uL (4.5-6.0)
[2021-02-15 07:07] LABS: CALCIUM, SERUM 7.6 mg/dL (8.5-10.1); CARBON DIOXIDE 17 mmol/L (21-32); CHLORIDE 114 mmol/L (98-107); CREATININE 2.8 mg/dL (0.6-1.3); GLUCOSE 132 mg/dL (74-106); MAGNESIUM 2.1 mg/dL (1.8-2.4); PHOSPHORUS 4.3 mg/dL (2.5-4.9); POTASSIUM 3.8 mmol/L (3.5-5.1); SODIUM SERUM 145 mmol/L (136-145); UREA NITROGEN, BLOOD 57 mg/dL (7-18)
--- NOTE | 2021-02-15 07:30 | NUR ---
RECIEVED PATIENT ASLEEP IN BED, ABLE TO AROUSE. HOB RAISED FOWLERS POSITION , NON-VERBAL A/O X 1. NO SOB NOTED, NEEDED TO BE SUCTION R/T CONTACTED FOR DEEP SUCTIONING RESPONDED PROMT AND PERFORMED THE TASK BRWON WHITE YELLOW SECRETIONS SUCTIONED, NO SIGNS OF PAIN NOR DISTRESS NOTED. PATIENT ON 2L O2 VIA NC SATURATING >94-97%. NGT IN PLACE WITH JEVITY 1.2 RUNNING @30MLS/HR. SAFETY PRECAUTIONS IN PLACE; BED LOW POSITION WHEELS LOCKED, SIDE RAILS UP X2, CALL LIGHT WITHIN REACH. IV INTACT PATENT FLUSHING GAUGE #18. MADE COMFORTALBLE AND REPOSITIONED .
[2021-02-15] MEDS: FOLIC ACID 1 MG TABLET PO SCH (08:32)
[2021-02-15] MEDS: CLONIDINE HCL 0.1 MG TABLET PO SCH ×2 (08:33→17:50)
[2021-02-15] MEDS: FINASTERIDE (5 MG) 5 MG TABLET PO SCH (08:34)
[2021-02-15] MEDS: AMLODIPINE BESYLATE 10 MG TABLET PO SCH (08:34)
[2021-02-15] MEDS: DOCUSATE SODIUM LIQ 100 MG/10 ML UDC GT SCH (08:35)
[2021-02-15] MEDS: CLOTRIMAZOLE 1% 15 GM TUBE TP SCH ×2 (09:00→17:50)
[2021-02-15] MEDS: PANTOPRAZOLE 40 MG VIAL IV SCH ×2 (09:15→17:49)
[2021-02-15 12:00] VITALS: BP 112/62
--- NOTE | 2021-02-15 19:00 | NUR ---
RN NOTE RECEIVED PATIENT IN BED, AO X 1, IN NO S/SX OF ACUTE DISTRESS AT THIS TIME. SATURATION AT 98% ON 2L VIA NC, HR IS 96. NG TUBE AT R NARE IN PLACE, POSITIVE PLACEMENT NOTED, VERIFIED BY AUSCULTATION AND ASPIRATION, 10 ML OF RESIDUAL NOTED, WITH TUBE FEEDING OF JEVITY 1.2 AT 30 ML/HR. NOTED MARTIN MIDLINE, PATENT AND FLUSHING WELL, NO S/S OF INFECTION WITH D5W INFUSING AT 100ML/HR. SOFT WRIST RESTRAINTS NOTED AT BOTH WRISTS PER MD ORDERS, SKIN AND CIRCULATION WAS CHECKED. SAFETY MEASURES IMPLEMENTED. PATIENT BED ALARM IS ON. HEAD OF BED ELEVATED. BED IS LOCKED, IN LOWEST POSITION AND SIDE RAILS UP. CALL LIGHT WITHIN REACH OF THE PATIENT. WILL CONTINUE TO MONITOR AND REASSESS FOR ANY CHANGES.
[2021-02-15 20:00] VITALS: BP 115/61
[2021-02-15] MEDS: ATORVASTATIN 10 MG TABLET PO SCH (21:08)
[2021-02-16] MEDS: IV D5W 1,000 ML IV SCH (00:58)
[2021-02-16 04:00] VITALS: BP 117/62
[2021-02-16] MEDS: CLOTRIMAZOLE 1% 15 GM TUBE TP SCH ×2 (09:00→17:44)
[2021-02-16] MEDS: FINASTERIDE (5 MG) 5 MG TABLET PO SCH (10:30)
[2021-02-16] MEDS: PANTOPRAZOLE 40 MG VIAL IV SCH (10:30)
[2021-02-16] MEDS: FOLIC ACID 1 MG TABLET PO SCH (10:30)
[2021-02-16] MEDS: DOCUSATE SODIUM LIQ 100 MG/10 ML UDC GT SCH (10:34)
[2021-02-16] MEDS: CLONIDINE HCL 0.1 MG TABLET PO SCH ×2 (10:34→17:31)
[2021-02-16] MEDS: AMLODIPINE BESYLATE 10 MG TABLET PO SCH (10:35)
--- NOTE | 2021-02-16 10:41 | NUR ---
PER [facility] PAC PCR NEGATIVE MD MADE AWARE.
--- NOTE | 2021-02-16 11:22 | NUR ---
ECEIVED PATIENT IN BED, AO X 1, NO SOB, NO S/SX OF ACUTE DISTRESS AT THIS TIME. SATURATION AT 99% ON 2L VIA NC, PULSE - 103, . NG TUBE AT RIGHT NARE IN PLACE, POSITIVE PLACEMENT VERIFIED BY AUSCULTATION AND ASPIRATION, WITH STETHOSCOPE, NG TUBE ON FEEDING OF JEVITY 1.2 AT 30 ML/HR. NOTED MARTIN MIDLINE, PATENT AND FLUSHING WELL, NO S/S OF INFECTION WITH D5W INFUSING AT 100ML/HR. SOFT WRIST RESTRAINTS INTACT ON BOTH WRISTS PER MD ORDERS, SKIN AND CIRCULATION CHECKED. HYDRATION PROVIDED, SAFETY MEASURES IMPLEMENTED. PATIENT BED ALARM IS ON. HEAD OF BED ELEVATED. BED WHEELS LOCKED, BED LOWEST POSITION AND SIDE RAILS UP. CALL LIGHT WITHIN REACH OF THE PATIENT. WILL CONTINUE TO MONITOR AND REASSESS FOR ANY CHANGES.
--- NOTE | 2021-02-16 11:31 | NUR ---
FAMILY VISITING WITH PATIENT, FRIEND WAS HELPING TO TRY TO ADJUST NASAL CANNULA SOME HOW THE LEFT WRIST RESTRAINT GOT LOOSE ENOUGH WHERE PATIENT WAS ABLE TO PULL OUT NG TUBE, CANOE BUILDER ADVISED AND WAS TOLD TO HAVE ME RE-INSERT NG TUBE , TASK COMPLETED APPEARS AND SOUNDS TO BE INTACT - X-RAY NOTIFIED STAT TO CONFIRM PROPER PLACEMENT OF NG TUBE, AT THIS TIME THE NG TUBE FEEDING IS BEING HELD AND ALL NG ORDERS I WILL HOLD UNTIL CONFIRMATION THAT THE NG TUBE IS IN THE CORRECT PROPER PLACEMENT. WILL CONTINUE TO MONITOR PATIENT CLOSELY AT THIS TIME.
[2021-02-16 12:00] VITALS: BP 124/76
--- NOTE | 2021-02-16 16:42 | NUR ---
PATIENT PULLED OUT NG-TUBE 2 TIMES DURING AM SHIFT, RN MANAGER MSW ADVISED AND ORDERS TO REPLACE NG TUBE, THEN PATIENT SOMEHOW WAS STRONG ENOUGH AGAIN TO LOOSEN UP THE RESTRAINTS WITH LEFT ARM / HAND AND PULLED IT OUT AGAIN, MD ADVISED, NG TUBE AND SITE CLEANSED AND REPLACE, X-RAY PROVIDED STAT TO ENSURE PLACEMENT IS IN CORRECT LOCATION, X - RAY REVEALS IT IS IN CORRECT LOCATION IN STOMACH AREA, APPEARS TO BE GRIMACING MOANING AND GROANING AND NOT ENJOYING THE NG TUBE, DISCUSSED WITH FRIEND OF FAMILY MEMBER THAT HAS POWER OF TAPING FOREMAN TO ALLOW G-TUBE PLACEMENT HOWEVER MD NEEDS THE RESULT OF THE SWALLOW EVAL BEFORE ANY FURTHER OTHER ORDERS ARE MADE REGARDING THIS MATTER, PATIENT KEPT CLEAN, DRY, REPOSITIONED, TRIED TO HELP MAINTAIN COMFORT LEVEL, LIGHTS DIMMER, PILLOWS AND BODY REPOSITIONED Q 2 HOURS OR MORE , HOB ELEVATED, IV INTACT FLOWING PATENT, NO OTHER SIGNIFICANT CHANGES NOTED.
[2021-02-16 20:00] VITALS: BP 96/59
[2021-02-16] MEDS: MORPHINE SULFATE INJ 2 MG/ML DISP.SYRIN IV PRN (21:39)
[2021-02-16] MEDS: ATORVASTATIN 10 MG TABLET PO SCH (21:41)
[2021-02-16] MEDS: PANTOPRAZOLE 40 MG/PACK PACK GT SCH (21:41)
[2021-02-17 04:00] VITALS: BP 101/51
--- NOTE | 2021-02-17 06:44 | NUR ---
RN notes Resting comfortably in bed. Alert with confusion. Breathing even and unlabored. On 3lpm O2 via nasal cannula tolerating well. Noted with congestion. Suctioned moderate amount of loose thin to thick secretion. Noted moaning and restless, morphine administered with relief. KUB ordered for NGT tube patency, result showed tip at the gastric area. Restarted feeding, tolerating well. No residuals. Vital signs within normal limits. No significant change of condition. Kept clean and dry. Will endorse to next shift for continuity of care.
[2021-02-17] MEDS: DOCUSATE SODIUM LIQ 100 MG/10 ML UDC GT SCH (08:58)
[2021-02-17] MEDS: CLOTRIMAZOLE 1% 15 GM TUBE TP SCH ×2 (08:58→17:02)
[2021-02-17] MEDS: FINASTERIDE (5 MG) 5 MG TABLET PO SCH (08:59)
[2021-02-17] MEDS: FOLIC ACID 1 MG TABLET PO SCH (08:59)
[2021-02-17] MEDS: PANTOPRAZOLE 40 MG/PACK PACK GT SCH ×2 (08:59→22:37)
[2021-02-17] MEDS: AMLODIPINE BESYLATE 10 MG TABLET PO SCH (08:59)
[2021-02-17] MEDS: CLONIDINE HCL 0.1 MG TABLET PO SCH ×2 (08:59→16:48)
[2021-02-17 09:37] LABS: BASOPHILS # (AUTO) 0.1 K/uL (0.0-0.2); BASOPHILS % (AUTO) 0.4 % (0.0-2.0); EOSINOPHILS % (AUTO) 0.8 % (0.0-6.0); HEMATOCRIT 28 % (39-51); HEMOGLOBIN 9.1 g/dL (13.5-17.5); LYMPHOCYTES # (AUTO) 1.1 K/uL (0.8-4.8); LYMPHOCYTES % (AUTO) 6.2 % (20.0-44.0); MEAN CORPUSCULAR HGB CONC 33 g/dl (31.0-36.0); MEAN CORPUSCULAR VOLUME 95 fL (80-96); MONOCYTES # (AUTO) 1.3 K/uL (0.1-1.30); MONOCYTES % (AUTO) 7.2 % (2.0-12.0); NEUTROPHILS # (AUTO) 15.1 K/uL (1.8-8.9); NEUTROPHILS % (AUTO) 85.4 % (43.0-81.0); PLATELET COUNT (AUTO) 305 K/uL (150-450); WHITE BLOOD COUNT (AUTO) 17.7 K/uL (4.3-11.0)
[2021-02-17 09:52] LABS: CALCIUM, SERUM 7.7 mg/dL (8.5-10.1); CARBON DIOXIDE 18 mmol/L (21-32); CHLORIDE 111 mmol/L (98-107); CREATININE 2.6 mg/dL (0.6-1.3); GLUCOSE 105 mg/dL (74-106); POTASSIUM 3.4 mmol/L (3.5-5.1); SODIUM SERUM 142 mmol/L (136-145); UREA NITROGEN, BLOOD 51 mg/dL (7-18)
[2021-02-17 12:00] VITALS: BP 101/51
[2021-02-17] MEDS ORDERED: VANCOMYCIN 1 GM in IV D5W 250ml IV SCH (13:00)
[2021-02-17] MEDS: MEROPENEM 500 MG in IV NS 0.9% 50 ML IV SCH (13:32)
[2021-02-17] MEDS: VANCOMYCIN 1 GM in IV D5W 250ml IV SCH ×2 (13:32→14:36)
--- NOTE | 2021-02-17 14:30 | NUR ---
PT. C/O SOB CONGESTION ,ABG DONE RELAYED TO DR. COVARRUBIAS WITH NEW ORDERS LEFT AND CARRIED OUT.
[2021-02-17 17:11] LABS: ALANINE AMINOTRANSFERASE 17 U/L (12-78); ALBUMIN 1.5 g/dL (3.4-5.0); ALKALINE PHOSPHATASE 69 U/L (46-116); ASPARTATE AMINOTRANSFERASE 24 U/L (15-37); BILIRUBIN,TOTAL 0.5 mg/dL (0.2-1.0); TOTAL PROTEIN, SERUM 5.8 g/dL (6.4-8.2)
--- NOTE | 2021-02-17 17:48 | NUR ---
RN NOTE ZHAO CATHETER PLACED PER DR. MOREJON ORDER. FC PATENT, INTACT AND DRAINING CLEAR YELLOW URINE.
[2021-02-17] MEDS ORDERED: FUROSEMIDE 40 MG/4 ML VIAL IV ONE (18:30)
--- NOTE | 2021-02-17 18:58 | NUR ---
INSERTER NOTE PATIENT ASLEEP IN BED, EASY TO AROUSE. NON-VERBAL A/O X 1. PATIENT CURRENTLY ON 8L O2 NON-REBREATHER MASK SATURATING >94-96%. PATIENT STILL WITH SOME CONGESTION AFTER DEEP SUCTION BY RT. IV ACCESS MARTIN MIDLINE REMOVED, AWAITING MIDLINE NURSE FOR INSERTION. SAFETY PRECAUTIONS MAINTAINED WITH BED IN LOW POSITION AND LOCKED, SIDE RAILS UP X2, CALL LIGHT WITHIN REACH. WILL ENDORSE CONTINUITY OF CARE TO ONCOMING SHIFT.
[2021-02-17 20:00] VITALS: BP 100/87
[2021-02-17] MEDS: ATORVASTATIN 10 MG TABLET PO SCH (22:37)
[2021-02-18] MEDS ORDERED: FUROSEMIDE 20 MG/2 ML VIAL IV ONE (00:30)
[2021-02-18] MEDS: MEROPENEM 500 MG in IV NS 0.9% 50 ML IV SCH ×2 (00:35→12:21)
--- NOTE | 2021-02-18 00:38 | NUR ---
RN NOTES, ENDORSED TO LEILANI SINK CUTTER THAT PATIENT CONTINUE WITH HIGH RR IN HIGH 40S EVEN THOUGH SUCTION PROVIDED, AND HR IS BEING 120S, INFORMED THAT 40MG LASIX IV GIVEN EARLIER ND PER HER OT GIVE ANOTHER LASIX 20MG IV ONCE, AND BREATHING TREATMENT Q4PRN, ALL ORDER NOTED AND CARRIED OUT.
[2021-02-18] MEDS ORDERED: IPRATROPIUM NEB FS 0.5 MG/2.5 ML AMPUL.NEB NEB PRN (01:00)
[2021-02-18] MEDS ORDERED: ALBUTEROL FS 2.5 MG/0.5 ML VIAL.NEB NEB PRN (01:00)
[2021-02-18 04:00] VITALS: BP 109/67
--- NOTE | 2021-02-18 06:54 | NUR ---
RN CLOSING NOTE, PATIENT ASLEEP IN BED, EASY TO AROUSE. NON-VERBAL A/O X 1, PATIENT ON 10L O2 SIMPLE MASK, WITH O2 SAT LEVEL >91 %, AGGRESSIVE DEEP SUCTIONING TO REMOVE SECRETIONS, PATIENT STILL WITH CONGESTION , DUANE MIDLINE IN PLACED, LASIX IV GIVEN 2X LAST NIGHT, ALL SAFETY PRECAUTIONS OBSERVED, BED LOCKED AND LOWEST POSITION, ON BILATERAL RESTRAINS, FREQUENT CHECKS WITH NO CIRCULATION COMPROMISED, NO ABNORMALITY NOTED AT SITE, GTF ON HOLD LAST NIGHT PER ENDORSEMENT, SIDE RAILS OF BED UP X2, CALL LIGHT WITHIN REACH, WILL ENDORSE CONTINUITY OF CARE TO ONCOMING NURSE.
[2021-02-18 07:06] LABS: CALCIUM, SERUM 8.1 mg/dL (8.5-10.1); CARBON DIOXIDE 17 mmol/L (21-32); CHLORIDE 113 mmol/L (98-107); CREATININE 2.5 mg/dL (0.6-1.3); GLUCOSE 112 mg/dL (74-106); POTASSIUM 3.5 mmol/L (3.5-5.1); SODIUM SERUM 145 mmol/L (136-145); UREA NITROGEN, BLOOD 57 mg/dL (7-18)
--- NOTE | 2021-02-18 07:30 | NUR ---
RECEIVED REPORT FROM PM NURSE.PATIENT IN BED,NON VERBAL MAKE INCOMPREHENSIBLE SOUND.IV LINE IS INTACT AND PATENT.WITH O2 SATURATING 92%.ST ON MONITOR HR 100-118.SAFETY AND ASPIRATION MEASURES IN PLACE.BED IS LOW AND IN LOCKED POSITION.CALL LIGHT IN REACH.RESTRAINTS ON.WILL CONTINUE TO MONITOR.
[2021-02-18 08:00] VITALS: BP 125/66
[2021-02-18 08:19] LABS: ABG BASE EXCESS -7.2 mmol/L; ABG OXYGEN SATURATION 94.7 % (92.0-98.5); ABG PH 7.381 (7.350-7.450); ABG PO2 75.5 mmHg (75.0-100.0); AaDO2 248.4 mmHg; COHb 0.3 % (0.5-1.5); MetHb 0.5 % (0.0-1.5); O2Hb 93.9 % (94.0-97.0); SITE, ABG Left Radial; VENT MODE, BG 10 L SM
[2021-02-18] MEDS: FINASTERIDE (5 MG) 5 MG TABLET PO SCH (09:05)
[2021-02-18] MEDS: AMLODIPINE BESYLATE 10 MG TABLET PO SCH (09:05)
[2021-02-18] MEDS: CLONIDINE HCL 0.1 MG TABLET PO SCH ×2 (09:06→17:23)
[2021-02-18] MEDS: DOCUSATE SODIUM LIQ 100 MG/10 ML UDC GT SCH (09:06)
[2021-02-18] MEDS: FOLIC ACID 1 MG TABLET PO SCH (09:06)
[2021-02-18] MEDS: CLOTRIMAZOLE 1% 15 GM TUBE TP SCH ×2 (09:07→17:23)
[2021-02-18] MEDS: PANTOPRAZOLE 40 MG/PACK PACK GT SCH ×2 (09:09→21:59)
--- NOTE | 2021-02-18 09:40 | NUR ---
WOUND CARE CONSULT: PT PRESENTS WITH SACRAL DEEP TISSUE INJURY IN EVOLUTION OVER PREVIOUS SCARRING (EXTENDS TO BILATERAL BUTTOCKS). PT NOTED TO HAVE MULTIPLE CO-MORBIDITIES INCLUDING GENERALIZED EDEMA, SEPSIS, ACUTE RENAL FAILURE, ACUTE ENCEPHALOPATHY, OBESITY, PNEUMONIA, HEART FAILURE, ANEMIA, RENAL MASS, AND DVT TO RT UPPER EXTREMITY. DUE TO MULTIPLE CO-MORBIDITIES, FURTHER SKIN BREAKDOWN MAY BE UNAVOIDABLE. SURGICAL CONSULT WAS CALLED TO DR GUTIERREZ. RECOMMENDATIONS MADE FOR SKIN PROTECTION AND WOUND CARE DISCUSSED WITH NURSING STAFF AND SHOP MECHANICBaylee RIVERA IN AGREEMENT WITH PLAN OF CARE. Addendum: 02/18/21 at 0944 by TORSTEN VILLARREAL WNDNU Amended: Links added.
[2021-02-18] MEDS ORDERED: FUROSEMIDE 40 MG/4 ML VIAL IV SCH (11:00)
[2021-02-18 12:00] VITALS: BP 95/53
[2021-02-18 16:00] VITALS: BP 111/64
[2021-02-18] MEDS: JEVITY 1.2 CAL 1,000 ML BOTTLE GT PRN (17:43)
[2021-02-18] MEDS ORDERED: APIXABAN 5 MG TABLET PO SCH (18:00)
--- NOTE | 2021-02-18 19:00 | NUR ---
PATIENT IN BED,NON VERBAL MAKE INCOMPREHENSIBLE SOUND.IV LINE IS INTACT AND PATENT.WITH O2 SATURATING 96%.ST ON MONITOR HR 100-118.SAFETY AND ASPIRATION MEASURES IN PLACE.BED IS LOW AND IN LOCKED POSITION.CALL LIGHT IN REACH.RESTRAINTS ON.WILL ENDORSE TO PM NURSE FOR LUNA.
[2021-02-18 20:00] VITALS: BP 111/57
--- NOTE | 2021-02-18 20:12 | NUR ---
RT NOTE RECVD PT ON 10LPM SIMPLE MASK SPO2 98 HR 109. NT SUCTIONED D/T CONGESTION SOUNDS. SUCTIONED THICK WHITE SECRETIONS. NO SOB OR S/S OF ACUTE RESPIRATORY DISTRESS NOTED. WILL CONTINUE TO MONITOR T/O SHIFT.
[2021-02-18] MEDS: ATORVASTATIN 10 MG TABLET PO SCH (22:01)
[2021-02-19] VITALS: BP 101/58
[2021-02-19] MEDS: MEROPENEM 500 MG in IV NS 0.9% 50 ML IV SCH ×3 (00:33→23:48)
[2021-02-19] MEDS: VANCOMYCIN 1 GM in IV D5W 250ml IV SCH (01:45)
--- NOTE | 2021-02-19 02:37 | NUR ---
RT NOTE PT ON 10LPM SIMPLE MASK SPO2 99 HR 109. NT SUCTIONED D/T CONGESTION SOUNDS AND DESATURATION. SUCTIONED THICK WHITE SECRETIONS. NO SOB OR S/S OF ACUTE RESPIRATORY DISTRESS NOTED. WILL CONTINUE TO MONITOR T/O SHIFT.
[2021-02-19 04:00] VITALS: BP 113/68
[2021-02-19 07:14] LABS: CARBON DIOXIDE 20 mmol/L (21-32); CHLORIDE 115 mmol/L (98-107); CREATININE 2.8 mg/dL (0.6-1.3); GLUCOSE 115 mg/dL (74-106); POTASSIUM 3.2 mmol/L (3.5-5.1); SODIUM SERUM 148 mmol/L (136-145); UREA NITROGEN, BLOOD 58 mg/dL (7-18)
--- NOTE | 2021-02-19 07:20 | NUR ---
RN CLOSING NOTE, PATIENT ASLEEP IN BED, EASY TO AROUSE. NON-VERBAL A/O X 1, PATIENT ON 10L O2 SIMPLE MASK, WITH O2 SAT LEVEL >92 %, AGGRESSIVE DEEP SUCTIONING TO REMOVE SECRETIONS, ON BILATERAL RESTRAINS, FREQUENT CHECKS WITH NO CIRCULATION COMPROMISED, NO ABNORMALITY NOTED AT SITE, ALL SAFETY PRECAUTIONS OBSERVED, BED LOCKED AND LOWEST POSITION, SIDE RAILS OF BED UP X2, CALL LIGHT WITHIN REACH, OTHERWISE NO SIGNIFICANT CHANGE IN CONDITION,WILL ENDORSE CONTINUITY OF CARE TO ONCOMING NURSE.
--- NOTE | 2021-02-19 07:30 | NUR ---
CUSTOMER ENGAGEMENT REPRESENTATIVE NOTES PT IN BED, LETHARGIC, NOT IN DISTRESS, NO SIGN OF PAIN, ON O2 AT 10LPM VIA MASK, CALL LIGHT WITHIN REACH, KEPT WARM AND COMFORTABLE IN BED, F/C IN PLACE, DRAINING CLEAR, YELLOW URINE, KEPT WARM AND COMFORTABLE IN BED.
[2021-02-19 08:58] LABS: BASOPHILS % (AUTO) 0.2 % (0.0-2.0); EOSINOPHILS % (AUTO) 0.9 % (0.0-6.0); HEMATOCRIT 30 % (39-51); HEMOGLOBIN 9.6 g/dL (13.5-17.5); LYMPHOCYTES # (AUTO) 0.5 K/uL (0.8-4.8); LYMPHOCYTES % (AUTO) 5.5 % (20.0-44.0); MEAN CORPUSCULAR HGB CONC 33 g/dl (31.0-36.0); MEAN CORPUSCULAR VOLUME 97 fL (80-96); MONOCYTES # (AUTO) 0.7 K/uL (0.1-1.30); MONOCYTES % (AUTO) 7.4 % (2.0-12.0); NEUTROPHILS # (AUTO) 8.4 K/uL (1.8-8.9); PLATELET COUNT (AUTO) 377 K/uL (150-450); RED BLOOD CELL COUNT(AUTO) 3.03 MIL/uL (4.5-6.0); WHITE BLOOD COUNT (AUTO) 9.8 K/uL (4.3-11.0)
[2021-02-19] MEDS: AMLODIPINE BESYLATE 10 MG TABLET PO SCH (09:00)
[2021-02-19] MEDS: DOCUSATE SODIUM LIQ 100 MG/10 ML UDC GT SCH (09:00)
[2021-02-19] MEDS: CLONIDINE HCL 0.1 MG TABLET PO SCH ×2 (09:00→17:00)
[2021-02-19 09:08] LABS: MAGNESIUM 1.8 mg/dL (1.8-2.4); PHOSPHORUS 4.2 mg/dL (2.5-4.9)
[2021-02-19] MEDS: FOLIC ACID 1 MG TABLET PO SCH (09:59)
[2021-02-19] MEDS: PANTOPRAZOLE 40 MG/PACK PACK GT SCH ×2 (09:59→21:00)
[2021-02-19] MEDS: FINASTERIDE (5 MG) 5 MG TABLET PO SCH (09:59)
[2021-02-19] MEDS: CLOTRIMAZOLE 1% 15 GM TUBE TP SCH ×2 (10:00→17:12)
[2021-02-19 10:18] LABS: ABG BASE EXCESS -5.6 mmol/L; ABG PCO2 30.3 mmHg (35.0-45.0); ABG PH 7.398 (7.350-7.450); ABG PO2 93.9 mmHg (75.0-100.0); AaDO2 300.6 mmHg; COHb 0.3 % (0.5-1.5); MetHb 0.3 % (0.0-1.5); O2Hb 96.4 % (94.0-97.0); SITE, ABG Left Radial
[2021-02-19 12:00] VITALS: BP 110/92
--- NOTE | 2021-02-19 12:00 | NUR ---
GARMENT LOOPER NOTES PT IN BED, PT SEEN AND EXAMINED BY DR. PRATHER, KEPT CONCRETE MIXER OPERATOR BED.
--- NOTE | 2021-02-19 18:45 | NUR ---
BELLHOP CAPTAIN NOTES PT IN BED, ALERT TO SELF, NO SIGN OF PAIN OR DISTRESS, ON O2 AT 10LPM VIA MASK, O2 SAT OF 99%, PM CARE PROVIDED, REPOSITIONED FOR COMFORT, F/C DRAINING WELL WITH CLEAR YELLOW URINE, ALL NEEDS ATTENDED.
[2021-02-19 20:00] VITALS: BP 121/61
[2021-02-19] MEDS: ATORVASTATIN 10 MG TABLET PO SCH (22:00)
--- NOTE | 2021-02-19 22:00 | NUR ---
RN NOTES, PATIENT WITH EPISODE OF DESATURATION, 02 LOW 80-81%, SUCTIONED PROVIDED, STILL WITH LOW O2, RT CHANGED SETTINGS FOR VENTURI MASK AT 12LPM 40% F1O2, O2 SATURATION 88-91% AT THIS TIME, WILL CONTINUE TO MONITOR CLOSELY. Addendum: 02/19/21 at 2341 by NENA ADKINS RN wrong entry
[2021-02-20 05:48] VITALS: BP 106/62
--- NOTE | 2021-02-20 06:32 | NUR ---
RN CLOSING NOTE, PATIENT ASLEEP IN BED, ON 10L O2 SIMPLE MASK, WITH O2 SAT LEVEL >93%, QUICKLY DESATURATES, NSR-ST ON TELE MONITOR WITH HR 80S-120S, PATIENT PULLED NGT DURING MY SHIFT, REINSERTED AND CHEST XR ORDERED PER LEXI RUFF TO VERIFY PLACEMENT, STILL AWAITING FOR RESULTS, FEEDING ON HOLD UNTIL PLACEMENT VERIFY, ON BILATERAL RESTRAINS, FREQUENT CHECKS WITH NO CIRCULATION COMPROMISED, NO ABNORMALITY NOTED AT SITE, ALL SAFETY PRECAUTIONS OBSERVED, BED LOCKED AND LOWEST POSITION, SIDE RAILS OF BED UP X2, CALL LIGHT WITHIN REACH, AGGRESSIVE DEEP SUCTIONING TO REMOVE SECRETIONS, WILL ENDORSE CONTINUITY OF CARE TO ONCOMING NURSE.
--- NOTE | 2021-02-20 07:20 | NUR ---
RN NOTE, PATIENT RECEIVED IN BED, ALERT AND ORIENTED X1, ON 10L O2 SIMPLE MASK, WITH O2 SAT LEVEL 93%, NO SIGN OF DISTRESS AT THIS TIME. NSR-ST ON TELE MONITOR WITH HR 80S-120S, SOFT BILATERAL RESTRAIN IN PLACE WITH NO CIRCULATION COMPROMISED SKIN IS INTACT, WILL FOLLOW UP FOR X RAY RESULTS OF NG TUBE PLACEMENT, ALL SAFETY PRECAUTIONS OBSERVED, BED LOCKED AND IN LOWEST POSITION, CALL LIGHT WITHIN REACH, WILL CONTINUE TO MONITOR
[2021-02-20 07:59] LABS: BASOPHILS % (AUTO) 0.2 % (0.0-2.0); EOSINOPHILS % (AUTO) 0.5 % (0.0-6.0); HEMATOCRIT 31 % (39-51); HEMOGLOBIN 10.2 g/dL (13.5-17.5); LYMPHOCYTES % (AUTO) 8.2 % (20.0-44.0); MEAN CORPUSCULAR HGB CONC 33 g/dl (31.0-36.0); MEAN CORPUSCULAR VOLUME 96 fL (80-96); MONOCYTES # (AUTO) 1.1 K/uL (0.1-1.30); MONOCYTES % (AUTO) 8.7 % (2.0-12.0); NEUTROPHILS # (AUTO) 10.1 K/uL (1.8-8.9); NEUTROPHILS % (AUTO) 82.4 % (43.0-81.0); PLATELET COUNT (AUTO) 428 K/uL (150-450); RED BLOOD CELL COUNT(AUTO) 3.27 MIL/uL (4.5-6.0); WHITE BLOOD COUNT (AUTO) 12.3 K/uL (4.3-11.0)
[2021-02-20 08:00] VITALS: BP 94/64
[2021-02-20 08:46] LABS: CALCIUM, SERUM 8.3 mg/dL (8.5-10.1); CARBON DIOXIDE 19 mmol/L (21-32); CHLORIDE 118 mmol/L (98-107); GLUCOSE 112 mg/dL (74-106); MAGNESIUM 2.1 mg/dL (1.8-2.4); PHOSPHORUS 4.3 mg/dL (2.5-4.9); POTASSIUM 3.3 mmol/L (3.5-5.1); SODIUM SERUM 155 mmol/L (136-145); UREA NITROGEN, BLOOD 63 mg/dL (7-18)
[2021-02-20] MEDS: CLONIDINE HCL 0.1 MG TABLET PO SCH ×2 (09:00→17:00)
[2021-02-20] MEDS: AMLODIPINE BESYLATE 10 MG TABLET PO SCH (09:00)
--- NOTE | 2021-02-20 09:12 | NUR ---
RN NOTE PER DR. OLIVA GREENE TO RESUME NGT FEEDING AND ADMINISTER MEDICATION, ASSESS NGT PLACEMENT PATENT UPON AUSCULTATION.
[2021-02-20] MEDS: JEVITY 1.2 CAL 1,000 ML BOTTLE GT PRN (09:17)
[2021-02-20] MEDS: CLOTRIMAZOLE 1% 15 GM TUBE TP SCH ×2 (09:27→17:10)
[2021-02-20] MEDS: FOLIC ACID 1 MG TABLET PO SCH (09:38)
[2021-02-20] MEDS: DOCUSATE SODIUM LIQ 100 MG/10 ML UDC GT SCH (09:38)
[2021-02-20] MEDS: PANTOPRAZOLE 40 MG/PACK PACK GT SCH ×2 (09:40→21:58)
[2021-02-20] MEDS: FINASTERIDE (5 MG) 5 MG TABLET PO SCH (09:41)
[2021-02-20 09:48] LABS: BAND % (MANUAL) 8 % (0.0-5.0); LYMPHOCYTES % (MANUAL) 15 % (16-48); MONOCYTES % (MANUAL) 4 % (0-11.0); NEUTROPHILS % (MANUAL) 64 (42-76)
[2021-02-20 09:49] LABS: METAMYELOCYTES % 3 % (0-0); MYELOCYTES % 6 % (0-0)
--- NOTE | 2021-02-20 11:24 | NUR ---
RN NOTES PATIENT SEEN BY KATHLEEN PRATHER , BED SIDE REPORT GIVEN, UPDATED REGARDING PT CURRENT CONDITION
[2021-02-20] MEDS: PROSOURCE / PROSTAT (PYXIS) 30 ML UDC GT SCH (11:31)
[2021-02-20 12:00] VITALS: BP 101/66
[2021-02-20] MEDS: MEROPENEM 500 MG in IV NS 0.9% 50 ML IV SCH (12:31)
[2021-02-20] MEDS: VANCOMYCIN 1 GM in IV D5W 250ml IV SCH (13:36)
[2021-02-20 16:00] VITALS: BP 108/49
--- NOTE | 2021-02-20 18:56 | NUR ---
RN NOTE, PATIENT IS RESTING IN BED, ALERT AND ORIENTED X1, ON 10L O2 SIMPLE MASK, WITH O2 SAT LEVEL 94%, NO SIGN OF DISTRESS AT THIS TIME. NSR-ST ON TELE MONITOR WITH HR 80S-110 S, SOFT BILATERAL RESTRAIN IN PLACE WITH NO CIRCULATION COMPROMISED SKIN IS INTACT, ON NG TUBE JEVITY 1.2 AT 30 CC/HR , ALL SAFETY PRECAUTIONS OBSERVED, BED LOCKED AND IN LOWEST POSITION, CALL LIGHT WITHIN REACH, WILL ENDORSE TO NEXT SHIFT
[2021-02-20 20:00] VITALS: BP 99/54
[2021-02-20] MEDS: ATORVASTATIN 10 MG TABLET PO SCH (21:58)
[2021-02-21] VITALS: BP 132/69
[2021-02-21] MEDS: MEROPENEM 500 MG in IV NS 0.9% 50 ML IV SCH ×2 (00:38→12:34)
[2021-02-21 04:00] VITALS: BP 98/68
--- NOTE | 2021-02-21 06:49 | NUR ---
RN NOTES PATIENT ASLEEP WELL ON BED ON O2 10 LPM VIA SIMPLE MASK TOLERATED WELL SATURATION KEPT >95%. AFEBRILE. VSS. FREQUENT SUCTION NEEDED DUE THICK WHITISH SECRETION ORALLY AND NASOPHARYNX. WOUND DRESSING CHANGED KEPT PT CLEAN AND COMFORTABLE IN BED. TURN AND REPOSITION Q2H AND PRN. WILL ENDORSED CONTINUITY OF CARE TO AM NURSE.
--- NOTE | 2021-02-21 07:30 | NUR ---
RN NOTE PATIENT OBSERVED IN BED OBTUNDED, ON 10L O2 SIMPLE MASK TOLERATING WELL BREATHIN EVEN AND UNLABORED, WITH O2 SAT LEVEL 94%, NO SIGN OF DISTRESS AT THIS TIME. SR ON TELE MONITOR WITH HR 85 AT THIS TIME, BILATERAL SOFT WRIST RESTRAIN IN PLACE WITH NO CIRCULATION COMPROMISED SKIN IS INTACT, WITH ZHAO CATHETER DRAINING WELL NO HEMATURIA NOTED. ON NG TUBE JEVITY 1.2 RUNNING AT 30 CC/HR WITH A GOAL OF 55, ALL SAFETY PRECAUTIONS OBSERVED, BED LOCKED AND IN LOWEST POSITION, CALL LIGHT WITHIN REACH, WILL CONTINUE TO MONITOR.
[2021-02-21 08:00] VITALS: BP 90/60
[2021-02-21] MEDS: AMLODIPINE BESYLATE 10 MG TABLET PO SCH (09:00)
[2021-02-21] MEDS: CLONIDINE HCL 0.1 MG TABLET PO SCH ×2 (09:00→16:17)
[2021-02-21] MEDS: PROSOURCE / PROSTAT (PYXIS) 30 ML UDC GT SCH (09:38)
[2021-02-21] MEDS: PANTOPRAZOLE 40 MG/PACK PACK GT SCH ×2 (09:41→21:03)
[2021-02-21] MEDS: FOLIC ACID 1 MG TABLET PO SCH (09:41)
[2021-02-21] MEDS: FINASTERIDE (5 MG) 5 MG TABLET PO SCH (09:41)
[2021-02-21] MEDS: DOCUSATE SODIUM LIQ 100 MG/10 ML UDC GT SCH (09:41)
[2021-02-21] MEDS: CLOTRIMAZOLE 1% 15 GM TUBE TP SCH ×2 (09:57→16:17)
[2021-02-21 10:23] LABS: ABG BASE EXCESS -4.4 mmol/L; ABG OXYGEN SATURATION 94.2 % (92.0-98.5); ABG PCO2 31.8 mmHg (35.0-45.0); ABG PH 7.405 (7.350-7.450); ABG PO2 70.4 mmHg (75.0-100.0); AaDO2 322.4 mmHg; COHb 0.3 % (0.5-1.5); MetHb 0.3 % (0.0-1.5); O2Hb 93.6 % (94.0-97.0); SITE, ABG Right Radial; VENT MODE, BG SIMPLE MASK
[2021-02-21 11:12] LABS: CALCIUM, SERUM 8.2 mg/dL (8.5-10.1); CARBON DIOXIDE 17 mmol/L (21-32); CHLORIDE 121 mmol/L (98-107); CREATININE 3.2 mg/dL (0.6-1.3); GLUCOSE 136 mg/dL (74-106); MAGNESIUM 2.2 mg/dL (1.8-2.4); PHOSPHORUS 3.8 mg/dL (2.5-4.9); POTASSIUM 3.6 mmol/L (3.5-5.1); SODIUM SERUM 153 mmol/L (136-145); UREA NITROGEN, BLOOD 74 mg/dL (7-18)
[2021-02-21 12:00] VITALS: BP 110/63
--- NOTE | 2021-02-21 12:30 | NUR ---
RN NOTE NOTIFIED KATHLEEN PRATHER THAT RAIL CAR PAINTER/SANDBLASTER UNABLE TO DRAW MORNING CBC, ONLY HAVE ENOUGH SPECIMEN FOR BMP.
--- NOTE | 2021-02-21 13:05 | NUR ---
RN NOTE PATIENT OBSERVED IN BED OBTUNDED, ON 10L O2 SIMPLE MASK TOLERATING WELL BREATHIN EVEN AND UNLABORED, WITH O2 SAT LEVEL 94%, NO SIGN OF DISTRESS AT THIS TIME. SR ON TELE MONITOR WITH HR 85 AT THIS TIME, BILATERAL SOFT WRIST RESTRAIN IN PLACE WITH NO CIRCULATION COMPROMISED SKIN IS INTACT, WITH ZHAO CATHETER DRAINING WELL NO HEMATURIA NOTED. ON NG TUBE JEVITY 1.2 RUNNING AT 30 CC/HR WITH A GOAL OF 55, ALL SAFETY PRECAUTIONS OBSERVED, BED LOCKED AND IN LOWEST POSITION, CALL LIGHT WITHIN REACH, WILL CONTINUE TO MONITOR. Addendum: 02/21/21 at 1857 by ROSEMARIE MATHIS RN ERROR
[2021-02-21 15:46] LABS: BASOPHILS % (AUTO) 0.1 % (0.0-2.0); EOSINOPHILS % (AUTO) 0.9 % (0.0-6.0); HEMATOCRIT 31 % (39-51); HEMOGLOBIN 10.2 g/dL (13.5-17.5); LYMPHOCYTES # (AUTO) 1.6 K/uL (0.8-4.8); LYMPHOCYTES % (AUTO) 11.8 % (20.0-44.0); MEAN CORPUSCULAR HGB CONC 32 g/dl (31.0-36.0); MEAN CORPUSCULAR VOLUME 96 fL (80-96); MONOCYTES # (AUTO) 1.3 K/uL (0.1-1.30); MONOCYTES % (AUTO) 9.4 % (2.0-12.0); NEUTROPHILS # (AUTO) 10.6 K/uL (1.8-8.9); NEUTROPHILS % (AUTO) 77.8 % (43.0-81.0); PLATELET COUNT (AUTO) 422 K/uL (150-450); RED BLOOD CELL COUNT(AUTO) 3.27 MIL/uL (4.5-6.0); WHITE BLOOD COUNT (AUTO) 13.6 K/uL (4.3-11.0)
[2021-02-21 16:00] VITALS: BP 112/64
[2021-02-21 16:30] LABS: BAND % (MANUAL) 8 % (0.0-5.0); EOSINOPHILS % (MANUAL) 1 % (0-4); LYMPHOCYTES % (MANUAL) 14 % (16-48); MONOCYTES % (MANUAL) 5 % (0-11.0); NEUTROPHILS % (MANUAL) 72 (42-76)
--- NOTE | 2021-02-21 18:57 | NUR ---
RN NOTE PATIENT OBSERVED IN BED OBTUNDED, ON 10L O2 SIMPLE MASK TOLERATING WELL BREATHIN EVEN AND UNLABORED, WITH O2 SAT LEVEL 94%, NO SIGN OF DISTRESS AT THIS TIME. SR ON TELE MONITOR WITH HR 90 AT THIS TIME, BILATERAL SOFT WRIST RESTRAIN IN PLACE WITH NO CIRCULATION COMPROMISED SKIN IS INTACT, WITH ZHAO CATHETER DRAINING WELL NO HEMATURIA NOTED. ON NG TUBE JEVITY 1.2 RUNNING AT 35 CC/HR WITH A GOAL OF 55, WOUND TREATMENT DONE ORDERED. ALL SAFETY PRECAUTIONS OBSERVED, BED LOCKED AND IN LOWEST POSITION, CALL LIGHT WITHIN REACH, WILL CONTINUE TO MONITOR. WILL ENDORSE TO NOC SHIFT.
--- NOTE | 2021-02-21 19:15 | NUR ---
RN NOTE PT IN BED, EYES CLOSED, NONVERBAL, OBTUNDED. TACHYPNEIC WITH RR32, ON O2 @10LPM VIA MASK, SPO2 99%. IV SITE ON L-ARM MIDLINE INTACT/PATENT/FLUSHES WELL. NGT IN PLACE, INTACT, WITH JEVITY 1.2 @35CC/HR. ANISA. SOFT WRIST RESTRAINTS IN PLACE FOR SAFETY D/T PULLING OUT LINES/TUBINGS. NO S/S OF COMPLICATIONS NOTED. WILL CONT TO MONITOR Q15MIN AND NEEDED. F/C IN PLACE, DRAINING CLEAR YELLOW URINE, 30CC IN BAG AT THIS TIME. SAFETY MEASURES IN PLACE. WILL CONT TO MONITOR.
[2021-02-21 20:00] VITALS: BP 121/60
[2021-02-21] MEDS: ATORVASTATIN 10 MG TABLET PO SCH (21:02)
--- NOTE | 2021-02-21 23:53 | NUR ---
PT NT SUCTIONED, OBTAINED MODERATE AMOUNT OF THICK WHITE SECRETIONS. RN NOTIFIED.
[2021-02-22] VITALS: BP 117/54
--- NOTE | 2021-02-22 01:00 | NUR ---
RN NOTE AWAITING VANCO TROUGH RESULT
[2021-02-22] MEDS: MEROPENEM 500 MG in IV NS 0.9% 50 ML IV SCH ×3 (01:06→23:42)
[2021-02-22] MEDS: VANCOMYCIN 1 GM in IV D5W 250ml IV SCH (02:16)
--- NOTE | 2021-02-22 02:18 | NUR ---
RN NOTE VANCO TROUGH =19. IV VANCO ADMINISTERED.
--- NOTE | 2021-02-22 03:42 | NUR ---
PT NT SUCTIONED.
[2021-02-22 04:00] VITALS: BP 102/67
--- NOTE | 2021-02-22 06:52 | NUR ---
RN CLOSING NOTE PT REMAINS NONVERBALLY RESPONSIVE TO TACTILE STIMULI, EYES CLOSED. TACHYPNEIC, CONTINUES ON O2 @10LPM VIA SIMPLE MASK. PT WITH NOTICEABLE CHEST CONGESTION AND SUCTIONED BY RT OBTAINING MODERATE AMOUNT OF THICK WHITE SECRETIONS. TELE MONITOR READING ST, HR 102. NGT IN PLACE/PATENT, ON JEVITY 1.2CAL @45ML/HR AT THIS TIME AND TAMI.WELL, NO N/V NOTED DURING THE SHIFT. ANISA.SOFT WRIST RESTRAINTS IN PLACE TO PREVENT PULLING OUT LINES/TUBINGS. MONITORED Q15MIN AND RELEASED Q2H. SKIN/CIRCULATION INTACT. F/C INTACT, DRAINING CLEAR YELLOW URINE, OUTPUT 250ML THIS SHIFT. KEPT PT CLEAN/DRY. KEPT HOB ELEVATED @45 DEGREES. SAFETY MEASURES MAINTAINED.
[2021-02-22 08:00] VITALS: BP 101/59
[2021-02-22 08:46] LABS: CALCIUM, SERUM 8.3 mg/dL (8.5-10.1); CARBON DIOXIDE 22 mmol/L (21-32); CHLORIDE 122 mmol/L (98-107); CREATININE 3.1 mg/dL (0.6-1.3); GLUCOSE 132 mg/dL (74-106); POTASSIUM 3.6 mmol/L (3.5-5.1); SODIUM SERUM 155 mmol/L (136-145); UREA NITROGEN, BLOOD 75 mg/dL (7-18)
[2021-02-22] MEDS: AMLODIPINE BESYLATE 10 MG TABLET PO SCH (09:00)
[2021-02-22] MEDS: CLONIDINE HCL 0.1 MG TABLET PO SCH ×2 (09:00→17:22)
[2021-02-22] MEDS: PANTOPRAZOLE 40 MG/PACK PACK GT SCH ×2 (09:01→21:16)
[2021-02-22] MEDS: DOCUSATE SODIUM LIQ 100 MG/10 ML UDC GT SCH (09:01)
[2021-02-22] MEDS: FINASTERIDE (5 MG) 5 MG TABLET PO SCH (09:01)
[2021-02-22] MEDS: FOLIC ACID 1 MG TABLET PO SCH (09:02)
[2021-02-22] MEDS: CLOTRIMAZOLE 1% 15 GM TUBE TP SCH ×2 (09:07→17:23)
[2021-02-22] MEDS: PROSOURCE / PROSTAT (PYXIS) 30 ML UDC GT SCH (09:21)
--- NOTE | 2021-02-22 10:38 | NUR ---
RN OPENING NOTE PATIENT IN STABLE CONDITION. RECEIVING OXYGEN VIA SIMPLE MASK @ 10L/MIN. PATIENT IS OBTUNDED. RECEIVING NG TUBE FEEDING OF JEVITY 1.2 @45ML/HR. ALL SAFETY MEASURE IN PLACE. BED ON LOWEST POSITION WITH HOB ELEVATED AND 3 SIDE RAIL UP. CALL LIGHT WITHIN REACH. WILL CONTINUE TO MONITOR.
--- NOTE | 2021-02-22 10:52 | NUR ---
PT BP 101/59, AMLODIPINE AND CLONIDINE HOLD.
[2021-02-22 12:00] VITALS: BP 113/61
[2021-02-22 16:00] VITALS: BP 120/63
[2021-02-22] MEDS: JEVITY 1.2 CAL 1,000 ML BOTTLE GT PRN (18:49)
--- NOTE | 2021-02-22 19:31 | NUR ---
RN CLOSING NOTE PATIENT REMAIN STABLE THROUGHOUT SHIFT. CONTINUE TO RECEIVE NG TUBE FEEDING OF JEVITY 1.2 AT 45ML/HR. RESIDUAL OF 10ML. ANTIBIOTIC WAS GIVEN. RECEIVING OXYGEN VIA SIMPLE MASK AT 10L/MIN. PATIENT HAD 2 LOOSE ADRIÁN. SAMPLE WAS TAKEN AND SENT TO LAB FOR C-DIF. PATIENT WAS TURN AND REPOSITION PER PROTOCOL. BED LINEN CHANGE AND BED BATH WAS GIVEN. PERFORM WOUND CARE. ALL SAFETY MEASURE IN PLACE. BED ON LOWEST POSITION WITH HOB ELEVATED AND 3 SIDE RAIL UP. CALL LIGHT WITHIN REACH. REPORT WAS GIVEN TO ON COMING NURSE.
[2021-02-22 20:00] VITALS: BP 95/61
[2021-02-22] MEDS: ATORVASTATIN 10 MG TABLET PO SCH (21:16)
--- NOTE | 2021-02-22 22:01 | NUR ---
NTS pt, sxn moderate pale yellow secretions, no adverse reaction observe Addendum: 02/22/21 at 2202 by YOLANDA SON RT Amended: Links added.
[2021-02-23 01:00] VITALS: BP 93/57
[2021-02-23 04:00] VITALS: BP 101/67
--- NOTE | 2021-02-23 04:00 | NUR ---
RN NOTES PATIENT REMAINED TO BE IN NO SIGNS OF ACUTE RESPIRATORY DISTRESS , VITAL SIGNS STABLE AT THIS TIME. REGULAR TURNING AND REPOSITIONING DONE Q2H AND SUCTIONING RENDERED. AM PATIENT CARE DONE. WILL CONTINUE TO MONITOR AND REASSESS FOR ANY CHANGES THROUGHOUT THE SHIFT.
--- NOTE | 2021-02-23 07:00 | NUR ---
RN CLOSING NOTE: PATIENT REMAINS IN ROOM IN NO SIGNS OF RESPIRATORY DISTRESS, PATIENT STILL ON 10L OF 02 VIA SIMPLE MASK ;TOLERATING WELL SATURATING @ >95% SP02. SAFETY MEASURES IMPLEMENTED, BED IN LOWEST POSITION, LOCKED, SIDE RAILS UP, CALL LIGHT WITHIN REACH. ALL NEEDS AND ORDERS ADDRESSED DURING THE SHIFT. IV ACCESS MAINTAINED INTACT, SECURED AND FLUSHING WELL. ALL DUE MEDS GIVEN ORDERED & SCHEDULED ; PATIENT TOLERATED WELL. PATIENT KEPT CLEAN AND COMFORTABLE WITHIN THE SHIFT. PATIENT ENDORSED TO INCOMING SHIFT RN WITH STABLE VITAL SIGN AND FOR CONTINUITY OF CARE.
--- NOTE | 2021-02-23 07:33 | NUR ---
RN OPENING NOTE PATIENT RECEIVED IN BED, RESTING. PATIENT ON 10L O2 SIMPLE MASK WITH NO SIGNS OF LABORED BREATHING. TELE MONITOR ON, SINUS TACHY. BILATERAL SOFT WRIST RESTRAINS ON, SKIN WARM AND INTACT. ZHAO CATHETER ON, PATENT DRAINING CLEAR URINE. G TUBE IN PLACE, PATENT AND RUNNING JEVITY 1.2 AT 45CC/HR. LEFT UA MIDLINE 18G IN PLACE. NO SIGNS OF DISTRESS NOTED AT THIS TIME. BED LOCKED AND IN LOWEST POSITION, 3 SIDE RAILS UP, CALL LIGHT WITHIN REACH. ALL SAFETY MEASURES. WILL CONTINUE TO MONITOR.
[2021-02-23 08:00] VITALS: BP 102/63
[2021-02-23] MEDS: DOCUSATE SODIUM LIQ 100 MG/10 ML UDC GT SCH (08:47)
[2021-02-23] MEDS: FINASTERIDE (5 MG) 5 MG TABLET PO SCH (08:48)
[2021-02-23] MEDS: CLONIDINE HCL 0.1 MG TABLET PO SCH ×2 (08:48→16:22)
[2021-02-23] MEDS: FOLIC ACID 1 MG TABLET PO SCH (08:48)
[2021-02-23] MEDS: AMLODIPINE BESYLATE 10 MG TABLET PO SCH (08:49)
[2021-02-23] MEDS: CLOTRIMAZOLE 1% 15 GM TUBE TP SCH ×2 (08:49→16:09)
[2021-02-23] MEDS: PANTOPRAZOLE 40 MG/PACK PACK GT SCH ×2 (08:49→21:23)
[2021-02-23] MEDS: PROSOURCE / PROSTAT (PYXIS) 30 ML UDC GT SCH (09:02)
[2021-02-23 12:00] VITALS: BP 110/67
[2021-02-23] MEDS: MEROPENEM 500 MG in IV NS 0.9% 50 ML IV SCH ×2 (12:03→23:02)
[2021-02-23 13:05] LABS: BASOPHILS % (AUTO) 0.2 % (0.0-2.0); EOSINOPHILS % (AUTO) 2.2 % (0.0-6.0); HEMATOCRIT 30 % (39-51); HEMOGLOBIN 9.8 g/dL (13.5-17.5); LYMPHOCYTES # (AUTO) 1.6 K/uL (0.8-4.8); LYMPHOCYTES % (AUTO) 8.3 % (20.0-44.0); MEAN CORPUSCULAR HGB CONC 33 g/dl (31.0-36.0); MEAN CORPUSCULAR VOLUME 95 fL (80-96); MONOCYTES # (AUTO) 1.1 K/uL (0.1-1.30); MONOCYTES % (AUTO) 5.7 % (2.0-12.0); NEUTROPHILS # (AUTO) 15.8 K/uL (1.8-8.9); NEUTROPHILS % (AUTO) 83.6 % (43.0-81.0); PLATELET COUNT (AUTO) 366 K/uL (150-450); RED BLOOD CELL COUNT(AUTO) 3.18 MIL/uL (4.5-6.0); WHITE BLOOD COUNT (AUTO) 18.9 K/uL (4.3-11.0)
[2021-02-23] MEDS: VANCOMYCIN 1 GM in IV D5W 250ml IV SCH (13:12)
[2021-02-23 13:15] LABS: CALCIUM, SERUM 8.1 mg/dL (8.5-10.1); CARBON DIOXIDE 19 mmol/L (21-32); CHLORIDE 124 mmol/L (98-107); CREATININE 2.9 mg/dL (0.6-1.3); GLUCOSE 172 mg/dL (74-106); MAGNESIUM 2.3 mg/dL (1.8-2.4); PHOSPHORUS 4.1 mg/dL (2.5-4.9); POTASSIUM 3.6 mmol/L (3.5-5.1)
[2021-02-23 13:19] LABS: SODIUM SERUM 156 mmol/L (136-145)
[2021-02-23 13:20] LABS: UREA NITROGEN, BLOOD 84 mg/dL (7-18)
[2021-02-23 16:00] VITALS: BP 104/68
--- NOTE | 2021-02-23 18:47 | NUR ---
RN CLOSING NOTE PATIENT IN BED, NON-VERBAL, EYES OPEN. PATIENT ON 8L O2 VIA SIMPLE MASK, SATURATING AT 100%. TELE MONITOR ON, SINUS TACH. ZHAO CATHETER IN PLACE AND PATENT. RECTAL TUBE IN PLACE. BILATERAL SOFT WRIST RESTRAINS IN PLACE, SKIN INTACT AND WARM. NG TUBE IN PLACE, PATENT AND RUNNING JEVITY 1.2 AT 50CC/HR. ALL NEEDS ATTENDED DURING SHIFT. NO SIGNS OF DISTRESS NOTED. BED LOCKED AND IN LOWEST POSITION, 3 SIDE RAILS UP, CALL LIGHT WITHIN REACH. ALL SAFETY MEASURES IMPLEMENTED. WILL ENDORSE TO BARBECUE COOK NURSE.
--- NOTE | 2021-02-23 19:30 | NUR ---
RN NOTES RECEIVED PT FOR LUNA. PATIENT IN NO S/SX OF ACUTE DISTRESS AT THIS TIME; CURRENTLY ON 10L OF 02 VIA SIMPLE MASK. WILL ENSURE SAFETY MEASURES WITHIN THE SHIFT. PATIENT BED ALARM IS ON. HEAD OF BED ELEVATED. BED IS LOCKED, IN LOWEST POSITION AND SIDE RAILS UP. CALL LIGHT WITHIN REACH OF THE PATIENT. APPLICABLE ISOLATION PRECAUTIONS IN PLACE. WILL CONTINUE TO MONITOR AND REASSESS FOR ANY CHANGES AND WILL CARRY OUT ANY ONGOING AND ACTIVE MD ORDE
--- NOTE | 2021-02-23 19:54 | NUR ---
RT NOTE NASOTRACHEAL SUCTION DONE. MODERATE THICK WHITE YELLOW SECRETIONS NOTED. B/S IMPROVED. WILL CONTINUE TO MONITOR.
[2021-02-23 20:00] VITALS: BP 99/71
[2021-02-23] MEDS: ATORVASTATIN 10 MG TABLET PO SCH (21:23)
[2021-02-23] MEDS: METRONIDAZOLE 500 MG TABLET PO SCH (22:56)
[2021-02-24] VITALS: BP 91/59
--- NOTE | 2021-02-24 | NUR ---
RN NOTES PATIENT REMAINED TO BE IN NO SIGNS OF ACUTE RESPIRATORY DISTRESS , VITAL SIGNS STABLE AT THIS TIME. REGULAR TURNING AND REPOSITIONING DONE Q2H AND SUCTIONING RENDERED. WILL CONTINUE TO MONITOR AND REASSESS FOR ANY CHANGES THROUGHOUT THE SHIFT.
[2021-02-24 04:00] VITALS: BP 111/61
[2021-02-24] MEDS: METRONIDAZOLE 500 MG TABLET PO SCH ×3 (05:41→20:37)
--- NOTE | 2021-02-24 06:43 | NUR ---
RN CLOSING NOTE: PATIENT REMAINS IN ROOM IN NO SIGNS OF RESPIRATORY DISTRESS, PATIENT STILL ON 8L OF 02 VIA SIMPLE MASK ;TOLERATING WELL SATURATING @ >95% SP02. SAFETY MEASURES IMPLEMENTED, BED IN LOWEST POSITION, LOCKED, SIDE RAILS UP, CALL LIGHT WITHIN REACH. ALL NEEDS AND ORDERS ADDRESSED DURING THE SHIFT. IV ACCESS MAINTAINED INTACT, SECURED AND FLUSHING WELL. ALL DUE MEDS GIVEN ORDERED & SCHEDULED ; PATIENT TOLERATED WELL. PATIENT KEPT CLEAN AND COMFORTABLE WITHIN THE SHIFT. PATIENT ENDORSED TO INCOMING SHIFT RN WITH STABLE VITAL SIGN AND FOR CONTINUITY OF CARE.
[2021-02-24 07:39] LABS: CALCIUM, SERUM 8.2 mg/dL (8.5-10.1); CARBON DIOXIDE 20 mmol/L (21-32); CHLORIDE 123 mmol/L (98-107); CREATININE 2.9 mg/dL (0.6-1.3); GLUCOSE 131 mg/dL (74-106); MAGNESIUM 2.6 mg/dL (1.8-2.4)
--- NOTE | 2021-02-24 07:51 | NUR ---
MAIL WEIGHER OPENING NOTES RECEIVED PATIENT OBTUNDED WITH HOB ELEVATED ON 8L NC WITH NO S/SX OF RESPIRATORY DISTRESS. PATIENT HAS B/L SOFT WRIST RESTRAINTS, SKIN CHECKED FOR CIRCULATION AND BREAK DOWN. PATIENT HAD JEVITY 1.2 RUNNING AT 50 ML PER HR. PATIENT HAS DUANE MIDLINE SL, FLUSHED PATENT AND INTACT. SAFETY MEASURES IN PLACE WITH BED IN LOWEST LOCK POSITION AND SIDE RAILS UP X3 AND CALL LIGHT WITHIN REACH.
[2021-02-24 07:55] LABS: SODIUM SERUM 156 mmol/L (136-145); UREA NITROGEN, BLOOD 89 mg/dL (7-18)
[2021-02-24 08:04] LABS: BASOPHILS % (AUTO) 0.1 % (0.0-2.0); EOSINOPHILS % (AUTO) 2.5 % (0.0-6.0); HEMATOCRIT 30 % (39-51); HEMOGLOBIN 9.5 g/dL (13.5-17.5); LYMPHOCYTES # (AUTO) 1.7 K/uL (0.8-4.8); LYMPHOCYTES % (AUTO) 8.8 % (20.0-44.0); MEAN CORPUSCULAR HGB CONC 32 g/dl (31.0-36.0); MEAN CORPUSCULAR VOLUME 96 fL (80-96); MONOCYTES # (AUTO) 1.2 K/uL (0.1-1.30); MONOCYTES % (AUTO) 6.4 % (2.0-12.0); NEUTROPHILS # (AUTO) 15.9 K/uL (1.8-8.9); NEUTROPHILS % (AUTO) 82.2 % (43.0-81.0); PLATELET COUNT (AUTO) 356 K/uL (150-450); RED BLOOD CELL COUNT(AUTO) 3.12 MIL/uL (4.5-6.0); WHITE BLOOD COUNT (AUTO) 19.3 K/uL (4.3-11.0)
[2021-02-24 08:08] VITALS: BP 90/53
[2021-02-24] MEDS: DOCUSATE SODIUM LIQ 100 MG/10 ML UDC GT SCH (08:28)
[2021-02-24] MEDS: FOLIC ACID 1 MG TABLET PO SCH (08:29)
[2021-02-24] MEDS: PANTOPRAZOLE 40 MG/PACK PACK GT SCH ×2 (08:29→20:36)
[2021-02-24] MEDS: FINASTERIDE (5 MG) 5 MG TABLET PO SCH (08:29)
[2021-02-24] MEDS: AMLODIPINE BESYLATE 10 MG TABLET PO SCH (09:00)
[2021-02-24] MEDS: CLONIDINE HCL 0.1 MG TABLET PO SCH ×2 (09:00→17:00)
[2021-02-24] MEDS: CLOTRIMAZOLE 1% 15 GM TUBE TP SCH ×2 (09:44→17:56)
[2021-02-24] MEDS: PROSOURCE / PROSTAT (PYXIS) 30 ML UDC GT SCH (09:44)
[2021-02-24 12:00] VITALS: BP 98/47
[2021-02-24] MEDS: MEROPENEM 500 MG in IV NS 0.9% 50 ML IV SCH (12:15)
[2021-02-24] MEDS: JEVITY 1.2 CAL 1,000 ML BOTTLE GT PRN (14:46)
[2021-02-24 16:00] VITALS: BP 92/55
--- NOTE | 2021-02-24 18:54 | NUR ---
CUSTOMER EXPERIENCE LEADER CLOSING NOTE NO NOTABLE CHANGES DURING SHIFT, PATIENT TURNED Q 2HRS PER PROTOCOL. PATIENT HAS A SIMPLE FACE MASK WITH 8L NC, WITH LABORED BREATHING. PATIENT HAS NG TUBE IN RT NARE RUNNING JEVITY1.2 @ 50ML/HR, TOLERATING WELL. PATIENT HAS A DUANE MIDLINE 18g SL, PATIENT HAS ZHAO WITH PRESLEY COLOR URINE OUTPUT OF 300ML AND FLEXISEAL RECTAL TUBE WITH OUTPUT OF 150 ML. SAFETY MEASURES IN PLACE BED IN LOWEST POSITION, CALL LIGHT WITHIN REACH.
--- NOTE | 2021-02-24 19:30 | NUR ---
PATIENT ASLEEP IN BED BUT EASILY AROUSABLE, A/O X1 AND RESPONSIVE TO PAINFUL STIMULI. ON O2 INHALATION AT 8L/MIN VIA SIMPLE MASK, O2 SAT 98%. NG TUBE ON PLACE AND PATIENT. NO FACIAL GRIMACING NOTED OR DISCOMFORT. NO ACUTE DISTRESS. IV SITE ON DUANE MIDLINE. SKIN WARM AND DRY TO TOUCH. ZHAO CATHETER INTACT W/ YELLOWISH URINE. RECTAL TUBE IN PLACE. ON BILATERAL SOFT RESTRAINTS TO PREVENT INJURY. SAFETY MEASURE PROVIDED. BED IN POSITION AND LOCKED. BOTH SIDE RAILS UP. BED ALARM ON PLACE. CALL LIGHT WITH IN REACH. WILL CONTINUE TO MONITOR
[2021-02-24 20:00] VITALS: BP 114/67
--- NOTE | 2021-02-24 20:22 | NUR ---
RT Nasotracheal suction done. Pt has moderate amount of thick pale yellow secretions. Will cont to monitor.
[2021-02-24] MEDS: ATORVASTATIN 10 MG TABLET PO SCH (21:46)
[2021-02-25] VITALS: BP 102/61
[2021-02-25] MEDS: MEROPENEM 500 MG in IV NS 0.9% 50 ML IV SCH ×2 (00:13→12:06)
--- NOTE | 2021-02-25 02:30 | NUR ---
RN NOTES PATIENT IN SLEEPING IN BED BUT EASILY AROUSABLE, A/O X1 AND RESPONSIVE TO PAINFUL STIMULI. ON O2 INHALATION AT 8L/MIN VIA SIMPLE MASK, O2 SAT 98%. NG TUBE ON PLACE AND PATIENT. ALL MEDS GIVEN VIA NG TUBE AND PATIENT TOLERATED WELL. NO FACIAL GRIMACING NOTED OR DISCOMFORT. NO ACUTE DISTRESS. IV SITE ON DUANE MIDLINE. IV ATB THERAPY GIVEN AND WELL TOLERATED. SKIN WARM AND DRY TO TOUCH. ZHAO CATHETER INTACT W/ YELLOWISH URINE. RECTAL TUBE IN PLACE. ON BILATERAL SOFT RESTRAINTS TO PREVENT INJURY. SAFETY MEASURE PROVIDED. BED IN POSITION AND LOCKED. BOTH SIDE RAILS UP. BED ALARM ON PLACE. CALL LIGHT WITH IN REACH. WILL CONTINUE TO MONITOR.
[2021-02-25] MEDS: METRONIDAZOLE 500 MG TABLET PO SCH ×3 (05:08→21:09)
[2021-02-25 05:33] VITALS: BP 106/67
[2021-02-25 07:26] LABS: BASOPHILS % (AUTO) 0.1 % (0.0-2.0); EOSINOPHILS % (AUTO) 2.1 % (0.0-6.0); HEMATOCRIT 28 % (39-51); HEMOGLOBIN 9.2 g/dL (13.5-17.5); LYMPHOCYTES # (AUTO) 1.6 K/uL (0.8-4.8); LYMPHOCYTES % (AUTO) 8.1 % (20.0-44.0); MEAN CORPUSCULAR HGB CONC 32 g/dl (31.0-36.0); MEAN CORPUSCULAR VOLUME 95 fL (80-96); MONOCYTES % (AUTO) 5.3 % (2.0-12.0); NEUTROPHILS # (AUTO) 16.6 K/uL (1.8-8.9); NEUTROPHILS % (AUTO) 84.4 % (43.0-81.0); PLATELET COUNT (AUTO) 312 K/uL (150-450); RED BLOOD CELL COUNT(AUTO) 2.98 MIL/uL (4.5-6.0); WHITE BLOOD COUNT (AUTO) 19.7 K/uL (4.3-11.0)
--- NOTE | 2021-02-25 07:30 | NUR ---
Patient received in bed on 8 liters simple mask with 02 of 96%, On jevity feeding via ng tube to right nare at 50 cc/hour livia well. HOB kept elevated. DUANE midline saline lock. Bilateral heels elevated.Wound care nurse at bedside and provided assistance while report for consult. Patient will be monitored. Bed is in lowest and locked position. Velarde cath and rectal tube intact and draining. Will continue to monitor.
--- NOTE | 2021-02-25 07:41 | NUR ---
WOUND CARE CONSULT/FOLLOW UP: PT SEEN FOR BILATERAL HEEL INTACT DEEP TISSUE INJURIES AND RE-EVALUATION OF SACRAL DEEP TISSUE INJURY OVER PREVIOUS SCARRING. SACRAL DTI CONTINUES TO EVOLVE WITH WOUND BED CHANGES NOTED TO INCLUDE BROWN NECROTIC TISSUE. WILL DISCUSS WITH SURGICAL TEAM CURRENTLY ON CASE. DISCUSSED SKIN PROTECTION AND WOUND CARE WITH NURSING STAFF. PT NOTED TO HAVE MULTIPLE CO-MORBIDITIES INCLUDING GENERALIZED EDEMA, DVT WITH SWELLING TO RT UPPER EXTREMITY, SEPSIS SECONDARY TO PNEUMONIA, ACUTE HYPOXIC RESPIRATORY FAILURE, CHF, HEART FAILURE, ANEMIA, RENAL CYSTS, AND ACUTE KIDNEY INJURY. DUE TO MULTIPLE CO-MORBIDITIES, FURTHER SKIN BREAKDOWN MAY BE UNAVOIDABLE. [facility]. ALL SKIN PROTECTION MEASURES AREA IN PLACE. MD IN AGREEMENT WITH PLAN OF CARE. Addendum: 02/25/21 at 0745 by TORSTEN VILLARREAL WNDNU Amended: Links added.
[2021-02-25 08:00] VITALS: BP 92/51
[2021-02-25 08:05] LABS: CALCIUM, SERUM 8.1 mg/dL (8.5-10.1); CARBON DIOXIDE 20 mmol/L (21-32); CHLORIDE 125 mmol/L (98-107); GLUCOSE 140 mg/dL (74-106); MAGNESIUM 2.2 mg/dL (1.8-2.4); PHOSPHORUS 4.1 mg/dL (2.5-4.9)
[2021-02-25 08:19] LABS: CREATININE 2.7 mg/dL (0.6-1.3)
[2021-02-25 08:25] LABS: SODIUM SERUM 156 mmol/L (136-145); UREA NITROGEN, BLOOD 87 mg/dL (7-18)
[2021-02-25] MEDS ORDERED: METRONIDAZOLE 500MG/ NS 100ML 500 MG in PREMIX 1 EA IV SCH (08:30)
[2021-02-25] MEDS: DOCUSATE SODIUM LIQ 100 MG/10 ML UDC GT SCH (08:52)
[2021-02-25] MEDS: CLOTRIMAZOLE 1% 15 GM TUBE TP SCH ×2 (08:53→17:20)
[2021-02-25] MEDS: CLONIDINE HCL 0.1 MG TABLET PO SCH ×2 (08:53→17:00)
[2021-02-25] MEDS: AMLODIPINE BESYLATE 10 MG TABLET PO SCH (08:53)
[2021-02-25] MEDS: PANTOPRAZOLE 40 MG/PACK PACK GT SCH ×2 (09:27→21:09)
[2021-02-25] MEDS: FOLIC ACID 1 MG TABLET PO SCH (09:27)
[2021-02-25] MEDS: FINASTERIDE (5 MG) 5 MG TABLET PO SCH (09:27)
[2021-02-25] MEDS: PROSOURCE / PROSTAT (PYXIS) 30 ML UDC GT SCH (09:28)
--- NOTE | 2021-02-25 10:00 | NUR ---
LUIS Balderas made aware regarding patient's bp of 92/51 with nno.
[2021-02-25] MEDS: DAKINS QUARTER STRENGTH (0.125%) 480 ML BOTTLE TOP SCH (10:30)
[2021-02-25 12:00] VITALS: BP 86/52
[2021-02-25] MEDS: VANCOMYCIN HCL 125 MG/2.5 ML ORAL.SUSP PO SCH ×3 (12:03→23:41)
[2021-02-25] MEDS ORDERED: VANCOMYCIN 1 GM in IV D5W 250 ML IV SCH (13:00)
--- NOTE | 2021-02-25 13:00 | NUR ---
Stat aPTT ordered for Heparin infusion, awaiting lab.
--- NOTE | 2021-02-25 13:00 | NUR ---
Received order from Irvin SMITH for CT of the head without and Perfusion (NM). Per radiology and typewriter assembler patient not stable for Perfusion test due to inability to lay still and being on simple mask 8 Liters. Per BEAUTY THERAPIST to hold off on both tests ordered today until stable.
--- NOTE | 2021-02-25 14:40 | NUR ---
Pharmacy called due to results being available of aptt. Patient will be started on heparin 1200 units/hour.Awaiting medication
--- NOTE | 2021-02-25 15:02 | NUR ---
VANCO HELD DUE TO TROUGH LEVEL OF 25 ON 02/25/21
[2021-02-25] MEDS: HEPARIN INFUSION/D5W 500 ML IV PRN (15:36)
[2021-02-25 16:00] VITALS: BP 104/52
[2021-02-25] MEDS: JEVITY 1.2 CAL 1,000 ML BOTTLE GT PRN (18:39)
--- NOTE | 2021-02-25 19:23 | NUR ---
RN CLOSING NOTES Patient in bed on 8 liters simple mask with 02 of 95%, On jevity feeding via ng tube to right nare at 55cc/hour livia well. HOB kept elevated. DUANE midline running heparin drip at 1200 units/hr. Bilateral heels elevated. Patient will be monitored. Bed is in lowest and locked position. Velarde cath noted with 400 cc and rectal tube intact and drained 400 cc . Contact precautions observed. Will continue to monitor.Endorsed to next shift. Patient bp wnl
--- NOTE | 2021-02-25 19:35 | NUR ---
RN NOTE PT RECEIVED IN BED. PT IS ON SIMPLE FACE MASK AT 8L SHOWING NO S/S OF RESP DISTRESS. PT IS NOT ALERT AND ORIENTED. ON TELE MONITOR SHOWING NSR-ST. ZHAO CATH NOTED. NGT IN RIGHT NARE RUNNING JEVITY AT 55 ML/HR. IV ACCESS NOTED ON LEFT UPPER ARM MIDLINE RUNNING HEPARIN AT 1200 UNITS. LINE FLUSHED, PATENT, AND INTACT WITH NO SIGNS OF INFILTRATION. ALL SAFETY MEASURES IMPLEMENTED. WILL CONTINUE TO MONITOR AND ASSESS FOR ANY CHANGES DURING SHIFT.
[2021-02-25 20:00] VITALS: BP 113/43
[2021-02-25] MEDS: ATORVASTATIN 10 MG TABLET PO SCH (21:09)
[2021-02-26] VITALS: BP 137/71
--- NOTE | 2021-02-26 00:37 | NUR ---
RT notes Nasotracheal suction done. Pt has moderate amount of thick yellow secretions. B/S improve. Will cont to monitor.
[2021-02-26 04:00] VITALS: BP 90/41
[2021-02-26 04:02] LABS: BASOPHILS % (AUTO) 0.2 % (0.0-2.0); EOSINOPHILS % (AUTO) 2.2 % (0.0-6.0); HEMATOCRIT 30 % (39-51); HEMOGLOBIN 9.7 g/dL (13.5-17.5); LYMPHOCYTES # (AUTO) 1.5 K/uL (0.8-4.8); LYMPHOCYTES % (AUTO) 8.2 % (20.0-44.0); MEAN CORPUSCULAR HGB CONC 32 g/dl (31.0-36.0); MEAN CORPUSCULAR VOLUME 96 fL (80-96); MONOCYTES # (AUTO) 0.8 K/uL (0.1-1.30); MONOCYTES % (AUTO) 4.6 % (2.0-12.0); NEUTROPHILS % (AUTO) 84.8 % (43.0-81.0); PLATELET COUNT (AUTO) 298 K/uL (150-450); RED BLOOD CELL COUNT(AUTO) 3.15 MIL/uL (4.5-6.0); WHITE BLOOD COUNT (AUTO) 17.7 K/uL (4.3-11.0)
[2021-02-26 04:07] LABS: CALCIUM, SERUM 7.9 mg/dL (8.5-10.1); CARBON DIOXIDE 21 mmol/L (21-32); CHLORIDE 124 mmol/L (98-107); CREATININE 2.7 mg/dL (0.6-1.3); GLUCOSE 118 mg/dL (74-106); MAGNESIUM 2.4 mg/dL (1.8-2.4); PHOSPHORUS 5.1 mg/dL (2.5-4.9); POTASSIUM 4.2 mmol/L (3.5-5.1)
[2021-02-26 04:12] LABS: SODIUM SERUM 158 mmol/L (136-145); UREA NITROGEN, BLOOD 93 mg/dL (7-18)
--- NOTE | 2021-02-26 04:53 | NUR ---
RN NOTE SPOKE WITH DR. ELLIOTT ABOUT PT'S CRITICAL LAB RESULTS FOR SODIUM, BUN, AND ALBUMIN. NO NEW ORDERS AT THIS TIME. WILL CONTINUE TO MONITOR.
[2021-02-26] MEDS: METRONIDAZOLE 500 MG TABLET PO SCH ×3 (05:30→21:36)
[2021-02-26] MEDS: VANCOMYCIN HCL 125 MG/2.5 ML ORAL.SUSP PO SCH ×3 (05:30→18:17)
--- NOTE | 2021-02-26 07:04 | NUR ---
RN NOTE NO SIGNIFICANT CHANGES DURING SHIFT. PT IS ON SIMPLE FACE MASK AT 8L SHOWING NO S/S OF RESP DISTRESS. PT IS NOT ALERT/ORIENTED. ON TELE MONITOR SHOWING NSR-ST. NGT IN RIGHT NARE RUNNING JEVITY AT 55 ML/HR. IV ACCESS NOTED ON LEFT UPPER ARM MIDLINE. HEPARIN DRIP RUNNING AT 1000 UNITS. LINE FLUSHED, PATENT, AND INTACT WITH NO SIGNS OF INFILTRATION. ALL SAFETY MEASURES IMPLEMENTED. WILL ENDORSE TO MORNING SHIFT RN FOR LUNA.
--- NOTE | 2021-02-26 07:56 | NUR ---
STREET LIGHT REPAIRER OPENING NOTES RECEIVED PT. SLEEPING WITH HEAD OF BED ELEVATED ON SIMPLE FACE MASK WITH 8L OF OXYGEN. PT HAS A NG TUBE IN RIGHT NARE RUNNING JEVITY 1.2 AT 55ML PER HOUR. PT HAS A LEFT UPPER ARM MIDLINE 18G RUNNING HEPARIN AT 1000 UNITS AN HOUR. PT HAS A ZHAO AND RECTAL TUBE. SAFETY MEASURES IN PLACE, BED AT LOWEST LOCKED POSITION, SIDE RAILS UP X2 AND CALL LIGHT WITHIN REACH.
[2021-02-26 08:00] VITALS: BP 95/62
[2021-02-26] MEDS: CLONIDINE HCL 0.1 MG TABLET PO SCH ×2 (09:00→17:00)
[2021-02-26] MEDS: AMLODIPINE BESYLATE 10 MG TABLET PO SCH (09:00)
[2021-02-26] MEDS: PROSOURCE / PROSTAT (PYXIS) 30 ML UDC GT SCH (09:01)
[2021-02-26] MEDS: FOLIC ACID 1 MG TABLET PO SCH (09:01)
[2021-02-26] MEDS: PANTOPRAZOLE 40 MG/PACK PACK GT SCH ×2 (09:01→21:36)
[2021-02-26] MEDS: DOCUSATE SODIUM LIQ 100 MG/10 ML UDC GT SCH (09:01)
[2021-02-26] MEDS: CLOTRIMAZOLE 1% 15 GM TUBE TP SCH ×2 (09:08→18:07)
[2021-02-26] MEDS: DAKINS QUARTER STRENGTH (0.125%) 480 ML BOTTLE TOP SCH (09:08)
[2021-02-26] MEDS: FINASTERIDE (5 MG) 5 MG TABLET PO SCH (09:09)
[2021-02-26] MEDS: HEPARIN INFUSION/D5W 500 ML IV PRN (11:09)
[2021-02-26 12:00] VITALS: BP 91/42
[2021-02-26] MEDS: ALBUMIN 25% 25 GM in PREMIX 1 EA IV SCH ×2 (12:21→20:50)
--- NOTE | 2021-02-26 13:24 | NUR ---
ENTRY LEVEL LAB TECHNICIAN NOTE FAMILY MEMBER AT THE BEDSIDE, WISHING TO SPEAK WITH TOOL GRINDER SET UP OPERATOR GEAR REGARDING HOSPICE INQUIRY. IF TOOL GRINDER SET UP OPERATOR GEAR IS NOT AVAILABLE TODAY, FAMILY IS OKAY TO SPEAK TOMORROW.
--- NOTE | 2021-02-26 15:58 | NUR ---
RT Nasotracheal suction done X3 throughout shift. Suctioned moderate amount of thick yellow secretions. Patient received on 8 Lpm via SM and tolerating well. No SOB noted
[2021-02-26 16:00] VITALS: BP 97/48
--- NOTE | 2021-02-26 18:45 | NUR ---
OXYGEN EQUIPMENT AIDE CLOSING NOTES Patient in bed on 10 liters simple mask with 02 of 97%, On Jevity feeding via ng tube to right nare at 55cc/hour livia well. HOB kept elevated. DUANE midline running heparin drip at 1000 units/hr. Bilateral heels elevated. Patient sleeping. Bed is in lowest and locked position. Velarde cath noted with 400 cc and rectal tube intact and drained 150 cc . Contact precautions observed. All safety measures rendered.
--- NOTE | 2021-02-26 19:30 | NUR ---
RN NOTES RECEIVED PT FOR LUNA. PATIENT IN NO S/SX OF ACUTE DISTRESS AT THIS TIME; CURRENTLY ON 10L OF 02 VIA SIMPLE MASK; WITH 02 SAT >95% AT THIS TIME. WILL ENSURE SAFETY MEASURES WITHIN THE SHIFT. PATIENT BED ALARM IS ON. HEAD OF BED ELEVATED. BED IS LOCKED, IN LOWEST POSITION AND SIDE RAILS UP. CALL LIGHT WITHIN REACH OF THE PATIENT. APPLICABLE ISOLATION PRECAUTIONS IN PLACE. WILL CONTINUE TO MONITOR AND REASSESS FOR ANY CHANGES AND WILL CARRY OUT ANY ONGOING AND ACTIVE MD ORDER.
[2021-02-26 20:00] VITALS: BP 94/48
[2021-02-26] MEDS: ATORVASTATIN 10 MG TABLET PO SCH (21:36)
[2021-02-27] VITALS: BP 117/60
[2021-02-27] MEDS: VANCOMYCIN HCL 125 MG/2.5 ML ORAL.SUSP PO SCH ×4 (00:14→17:22)
[2021-02-27] MEDS: ALBUMIN 25% 25 GM in PREMIX 1 EA IV SCH (03:33)
[2021-02-27 04:00] VITALS: BP 95/45
[2021-02-27] MEDS: METRONIDAZOLE 500 MG TABLET PO SCH ×3 (05:00→21:23)
[2021-02-27 06:08] LABS: CALCIUM, SERUM 7.9 mg/dL (8.5-10.1); CARBON DIOXIDE 25 mmol/L (21-32); CHLORIDE 122 mmol/L (98-107); CREATININE 2.5 mg/dL (0.6-1.3); GLUCOSE 132 mg/dL (74-106); MAGNESIUM 2.3 mg/dL (1.8-2.4); PHOSPHORUS 5.4 mg/dL (2.5-4.9)
[2021-02-27 06:31] LABS: BASOPHILS % (AUTO) 0.2 % (0.0-2.0); EOSINOPHILS % (AUTO) 4.5 % (0.0-6.0); HEMATOCRIT 23 % (39-51); HEMOGLOBIN 7.6 g/dL (13.5-17.5); LYMPHOCYTES # (AUTO) 1.1 K/uL (0.8-4.8); LYMPHOCYTES % (AUTO) 10.2 % (20.0-44.0); MEAN CORPUSCULAR HGB CONC 33 g/dl (31.0-36.0); MEAN CORPUSCULAR VOLUME 95 fL (80-96); MONOCYTES # (AUTO) 0.6 K/uL (0.1-1.30); MONOCYTES % (AUTO) 5.4 % (2.0-12.0); NEUTROPHILS % (AUTO) 79.7 % (43.0-81.0); PLATELET COUNT (AUTO) 248 K/uL (150-450); RED BLOOD CELL COUNT(AUTO) 2.44 MIL/uL (4.5-6.0); WHITE BLOOD COUNT (AUTO) 11.3 K/uL (4.3-11.0)
--- NOTE | 2021-02-27 06:49 | NUR ---
RN NOTES PTT LEVEL NO YET OUT; AWAITING FOR RESULT TO REVISIT HEPARIN PROTOCOL FOR ANY ADJUSTMENT NEEDED. CO FOUNDER AND CHIEF STRATEGY OFFICER MADE AWARE.
--- NOTE | 2021-02-27 06:53 | NUR ---
RN CLOSING NOTE: PATIENT REMAINS IN ROOM IN NO SIGNS OF RESPIRATORY DISTRESS, PATIENT STILL ON 4L OF 02 VIA NC ;TOLERATING WELL SATURATING @ >95% SP02. SAFETY MEASURES IMPLEMENTED, BED IN LOWEST POSITION, LOCKED, SIDE RAILS UP, CALL LIGHT WITHIN REACH. ALL NEEDS AND ORDERS ADDRESSED DURING THE SHIFT. IV ACCESS MAINTAINED INTACT, SECURED AND FLUSHING WELL. ALL DUE MEDS GIVEN ORDERED & SCHEDULED ; PATIENT TOLERATED WELL. STILL WITH ONGOING DRIP OF HEPARIN @1000UNITS/HR FOLLOWING NON ACS PROTOCOL; ENDORSE TO AM SHIFT TO FOLLOW UP WITH LAB FOR PTT RESULT, ONCE RECEIVED REVISIT HEPARIN PROTOCOL FOR ANY ADJUSTMENTS. PATIENT KEPT CLEAN AND COMFORTABLE WITHIN THE SHIFT. PATIENT ENDORSED TO INCOMING SHIFT RN WITH STABLE VITAL SIGN AND FOR CONTINUITY OF CARE.
[2021-02-27 07:06] LABS: SODIUM SERUM 158 mmol/L (136-145)
[2021-02-27 07:07] LABS: UREA NITROGEN, BLOOD 85 mg/dL (7-18)
--- NOTE | 2021-02-27 07:30 | NUR ---
RN OPENING NOTE Patient in bed, asleep. A/O x 1, opens eyes. On O2 at 10 LPM via mask, saturating at 95%. IV access on DUANE midline infusing Heparin at 1000 units/HR following non ACS protocol. Velarde catheter intact. G-tube intact running Jevity at 50cc. On tele monitoring showing SR with occasional PVCs. Safety precautions in place: bed in low, locked position; siderails up x 2; Call light within reach. Will continue to monitor. Addendum: 02/27/21 at 1537 by CHARITY BLACKWELL RN Correction: Jevity at 55 cc.
[2021-02-27 08:00] VITALS: BP 108/56
--- NOTE | 2021-02-27 08:03 | NUR ---
RN NOTE Heparin drip held. ptt 170, redraw hold per protocol.
[2021-02-27] MEDS: DOCUSATE SODIUM LIQ 100 MG/10 ML UDC GT SCH (08:51)
[2021-02-27] MEDS: PANTOPRAZOLE 40 MG/PACK PACK GT SCH ×2 (08:51→21:23)
[2021-02-27] MEDS: FINASTERIDE (5 MG) 5 MG TABLET PO SCH (08:51)
[2021-02-27] MEDS: FOLIC ACID 1 MG TABLET PO SCH (08:52)
[2021-02-27] MEDS: CLONIDINE HCL 0.1 MG TABLET PO SCH ×2 (09:01→17:22)
[2021-02-27] MEDS: PROSOURCE / PROSTAT (PYXIS) 30 ML UDC GT SCH (09:02)
[2021-02-27] MEDS: AMLODIPINE BESYLATE 10 MG TABLET PO SCH (09:02)
[2021-02-27] MEDS: DAKINS QUARTER STRENGTH (0.125%) 480 ML BOTTLE TOP SCH (09:18)
[2021-02-27] MEDS: CLOTRIMAZOLE 1% 15 GM TUBE TP SCH ×2 (09:19→17:20)
--- NOTE | 2021-02-27 10:08 | NUR ---
RN NOTE PTT redraw is 74.6. Heparin drip resumed, decreased to 800 units/her per protocol and MD order.
[2021-02-27 12:00] VITALS: BP 102/53
[2021-02-27 13:15] LABS: BASOPHILS % (AUTO) 0.3 % (0.0-2.0); EOSINOPHILS % (AUTO) 5.2 % (0.0-6.0); HEMATOCRIT 26 % (39-51); HEMOGLOBIN 8.1 g/dL (13.5-17.5); LYMPHOCYTES # (AUTO) 1.3 K/uL (0.8-4.8); LYMPHOCYTES % (AUTO) 10.8 % (20.0-44.0); MEAN CORPUSCULAR HGB CONC 31 g/dl (31.0-36.0); MEAN CORPUSCULAR VOLUME 99 fL (80-96); MONOCYTES # (AUTO) 0.6 K/uL (0.1-1.30); MONOCYTES % (AUTO) 4.6 % (2.0-12.0); NEUTROPHILS # (AUTO) 9.7 K/uL (1.8-8.9); NEUTROPHILS % (AUTO) 79.1 % (43.0-81.0); PLATELET COUNT (AUTO) 266 K/uL (150-450); RED BLOOD CELL COUNT(AUTO) 2.65 MIL/uL (4.5-6.0); WHITE BLOOD COUNT (AUTO) 12.3 K/uL (4.3-11.0)
--- NOTE | 2021-02-27 15:38 | NUR ---
RESIDENTIAL MORTGAGE MANAGER NURSE NOTE DISCONTINUED HEPARIN DRIP PER MD ORDER AT 1345
[2021-02-27] MEDS: JEVITY 1.2 CAL 1,000 ML BOTTLE GT PRN (15:58)
[2021-02-27 16:00] VITALS: BP 103/52
--- NOTE | 2021-02-27 18:50 | NUR ---
REGIONAL BRANCH MANAGER CLOSING NOTE Patient in bed, asleep. A/O x 1, opens eyes. On O2 at 10 LPM via mask, saturating at 98%. No s/s of respiratory distress noted. IV access on DUANE midline intact, patent, and flushes well. Velarde catheter intact, with urine output of 800 cc. Rectal tube in place, intact with an output of G-tube intact running Jevity at 55 cc, patient tolerating feeding well. On tele monitoring showing SR, HR on the 80's. Wound care done, as ordered. Patient kept clean and dry. Due meds given. Safety precautions maintained: bed in low, locked position; siderails up x 2; Call light within reach. Will endorse to global account manager nurse for LUNA.
[2021-02-27 20:00] VITALS: BP 110/56
[2021-02-27] MEDS: ATORVASTATIN 10 MG TABLET PO SCH (21:23)
[2021-02-28] VITALS: BP 104/57
[2021-02-28] MEDS: VANCOMYCIN HCL 125 MG/2.5 ML ORAL.SUSP PO SCH ×4 (00:20→17:36)
[2021-02-28 04:00] VITALS: BP 110/62
[2021-02-28] MEDS: METRONIDAZOLE 500 MG TABLET PO SCH ×3 (05:42→21:14)
--- NOTE | 2021-02-28 07:30 | NUR ---
RN open note Patient received in bed, asleep. A/O x 1, opens eyes. On O2 at 10 LPM via mask, saturating at 98%. No s/s of respiratory distress noted. IV access on DUANE midline intact, patent, and flushes well. Velarde catheter intact, with urine output of 800 cc. Rectal tube in place, intact with an output of G-tube intact running Jevity at 55 cc, patient tolerating feeding well. On tele monitoring showing SR, HR on the 90's. Wound care done, as ordered. Patient kept clean and dry. Due meds given. Safety precautions maintained: bed in low, locked position; siderails up x 2; Call light within reach. Will endorse to shift leader nurse for LUNA.
[2021-02-28] MEDS: CLONIDINE HCL 0.1 MG TABLET PO SCH ×2 (09:00→17:00)
[2021-02-28] MEDS: AMLODIPINE BESYLATE 10 MG TABLET PO SCH (09:00)
[2021-02-28] MEDS: DOCUSATE SODIUM LIQ 100 MG/10 ML UDC GT SCH (09:00)
[2021-02-28] MEDS: FINASTERIDE (5 MG) 5 MG TABLET PO SCH (09:18)
[2021-02-28] MEDS: PANTOPRAZOLE 40 MG/PACK PACK GT SCH ×2 (09:21→21:14)
[2021-02-28] MEDS: FOLIC ACID 1 MG TABLET PO SCH (09:21)
[2021-02-28] MEDS: PROSOURCE / PROSTAT (PYXIS) 30 ML UDC GT SCH (09:24)
[2021-02-28] MEDS: CLOTRIMAZOLE 1% 15 GM TUBE TP SCH ×2 (09:25→17:37)
[2021-02-28] MEDS: DAKINS QUARTER STRENGTH (0.125%) 480 ML BOTTLE TOP SCH (09:45)
[2021-02-28 09:54] LABS: BASOPHILS % (AUTO) 0.2 % (0.0-2.0); EOSINOPHILS % (AUTO) 2.9 % (0.0-6.0); HEMATOCRIT 25 % (39-51); HEMOGLOBIN 8.1 g/dL (13.5-17.5); LYMPHOCYTES % (AUTO) 8.9 % (20.0-44.0); MEAN CORPUSCULAR HGB CONC 32 g/dl (31.0-36.0); MEAN CORPUSCULAR VOLUME 97 fL (80-96); MONOCYTES # (AUTO) 0.6 K/uL (0.1-1.30); MONOCYTES % (AUTO) 5.6 % (2.0-12.0); NEUTROPHILS # (AUTO) 9.5 K/uL (1.8-8.9); NEUTROPHILS % (AUTO) 82.4 % (43.0-81.0); PLATELET COUNT (AUTO) 249 K/uL (150-450); RED BLOOD CELL COUNT(AUTO) 2.61 MIL/uL (4.5-6.0); WHITE BLOOD COUNT (AUTO) 11.5 K/uL (4.3-11.0)
[2021-02-28 10:01] VITALS: BP 96/55
[2021-02-28 10:16] LABS: CALCIUM, SERUM 8.4 mg/dL (8.5-10.1); CARBON DIOXIDE 21 mmol/L (21-32); CHLORIDE 125 mmol/L (98-107); CREATININE 2.5 mg/dL (0.6-1.3); GLUCOSE 158 mg/dL (74-106); MAGNESIUM 2.3 mg/dL (1.8-2.4); PHOSPHORUS 4.5 mg/dL (2.5-4.9); POTASSIUM 4.4 mmol/L (3.5-5.1)
[2021-02-28 10:19] LABS: SODIUM SERUM 157 mmol/L (136-145); UREA NITROGEN, BLOOD 88 mg/dL (7-18)
[2021-02-28 12:00] VITALS: BP 98/52
[2021-02-28] MEDS: JEVITY 1.2 CAL 1,000 ML BOTTLE GT PRN (14:59)
[2021-02-28 16:00] VITALS: BP 98/55
--- NOTE | 2021-02-28 19:07 | NUR ---
RN CLOSING NOTE Patient remain in bed, asleep. A/O x 1, opens eyes. On O2 at 10 LPM via mask, saturating at 98%. No s/s of respiratory distress noted. IV access on DUANE midline intact, patent, and flushes well. Velarde catheter intact. Rectal tube came out while changing the linen, NG-tube intact running Jevity at 55 cc, patient tolerating feeding well. On tele monitoring showing SR, HR on the 90's. BP was low Bp med did not administer , put on hold. Wound care done, as ordered. Patient kept clean and dry. Due meds given. Safety precautions maintained: bed in low, locked position; siderails up x 2; Call light within reach. Will endorse to operations supervisor 2nd shift nurse for LUNA.
--- NOTE | 2021-02-28 19:48 | NUR ---
RN NOTE RECEIVED PATIENT IN BED, SLEEPING. BREATHING EVEN AND UNLABORED WITH MILD CONGESTION NOTED. HOB ELEVATED 35 DEGREES. NOTED WITH SIMPLE FACE MASK AT 10L/MIN, NO SOB NOTED. SKIN WARM AND DRY. NOTED WITH LEFT UPPER ARM MIDLINE, NO BLEEDING NOTED. PATENT. NOTED WITH NG-TUBE ON RIGHT NOSTRIL. RESIDUAL OF ABOUT 50 CC. FEEDING TUBE OFF AT THIS TIME. NOTED WITH ZHAO CATHETER. NO BLEEDING NOTED. NO HEMATURIA. BED LOW, IN LOCKED POSITION. CALL LIGHT WITHIN REACH.
[2021-02-28 20:00] VITALS: BP 107/62
[2021-02-28] MEDS: HEPARIN INFUSION/D5W 500 ML IV PRN (20:00)
--- NOTE | 2021-02-28 20:00 | NUR ---
RN NOTE PER MD ORDER, START HEPARIN DRIP AT 1200 UNITS/HR, NO BOLUS, THEN REPEAT APTT AFTER 6 HOURS FOLLOWING HEPARIN DRIP PROTOCOL PER NON ACS. NOTED AND CARRIED OUT. CHARGE NURSE WELL AWARE. WILL CONTINUE TO MONITOR.
[2021-02-28] MEDS: ATORVASTATIN 10 MG TABLET PO SCH (21:14)
--- NOTE | 2021-02-28 21:30 | NUR ---
RN NOTE PATIENT SUCTIONED BY RT VIA NASAL ROUTE, SUCTIONED THICK, WHITE SECRETIONS. WILL CONTINUE TO MONITOR. HOB ELEVATED 35 DEGREES.
[2021-03-01] VITALS: BP 95/52
[2021-03-01] MEDS: VANCOMYCIN HCL 125 MG/2.5 ML ORAL.SUSP PO SCH ×4 (00:18→17:15)
--- NOTE | 2021-03-01 02:53 | NUR ---
RN NOTE AWAITING APTT RESULTS AT THIS TIME.
--- NOTE | 2021-03-01 03:28 | NUR ---
RN NOTE APTT RESULT 66.9. NO CHANGES PER HEPARIN INFUSION SLIDING SCALE. PATIENT ON 1200U/HR. WILL CONTINUE TO MONITOR.
[2021-03-01 04:00] VITALS: BP 103/47
[2021-03-01] MEDS: METRONIDAZOLE 500 MG TABLET PO SCH ×3 (05:00→21:54)
--- NOTE | 2021-03-01 07:00 | NUR ---
RN NOTE RECEIVED PATIENT ON BED, ON MASKS AT 10L/HE BREATHING EVEN AND UNLABORED WITH MILD CONGESTION NOTED. HOB ELEVATED 35 DEGREES. PT IS NONVERBAL AND RESPONDS TO PAINFUL STIMULI, SKIN WARM AND DRY. LEFT UPPER ARM MIDLINE SITE CLEAN, DRY AND INTACT, NG TUBE FEEDING AT 55CC/HR RUNNING , NO RESIDUAL NOTED, ZHAO CATHETER DRAINING TO GRAVITY, BED LOCKED AND IN LOWEST POSITION. CALL LIGHT WITHIN EASY REACH. WILL CONTINUE TO MONITOR .
[2021-03-01 07:25] LABS: BASOPHILS % (AUTO) 0.4 % (0.0-2.0); EOSINOPHILS % (AUTO) 3.7 % (0.0-6.0); HEMATOCRIT 26 % (39-51); HEMOGLOBIN 7.9 g/dL (13.5-17.5); LYMPHOCYTES # (AUTO) 1.6 K/uL (0.8-4.8); LYMPHOCYTES % (AUTO) 14.8 % (20.0-44.0); MEAN CORPUSCULAR HGB CONC 31 g/dl (31.0-36.0); MEAN CORPUSCULAR VOLUME 99 fL (80-96); MONOCYTES # (AUTO) 0.7 K/uL (0.1-1.30); MONOCYTES % (AUTO) 6.7 % (2.0-12.0); NEUTROPHILS # (AUTO) 8.3 K/uL (1.8-8.9); NEUTROPHILS % (AUTO) 74.4 % (43.0-81.0); PLATELET COUNT (AUTO) 239 K/uL (150-450); RED BLOOD CELL COUNT(AUTO) 2.57 MIL/uL (4.5-6.0); WHITE BLOOD COUNT (AUTO) 11.1 K/uL (4.3-11.0)
[2021-03-01 07:47] LABS: CALCIUM, SERUM 7.7 mg/dL (8.5-10.1); CARBON DIOXIDE 19 mmol/L (21-32); CHLORIDE 121 mmol/L (98-107); CREATININE 2.5 mg/dL (0.6-1.3); GLUCOSE 137 mg/dL (74-106); MAGNESIUM 2.4 mg/dL (1.8-2.4); PHOSPHORUS 4.3 mg/dL (2.5-4.9); POTASSIUM 4.2 mmol/L (3.5-5.1); SODIUM SERUM 153 mmol/L (136-145)
[2021-03-01 08:00] VITALS: BP 124/70
[2021-03-01 08:06] LABS: UREA NITROGEN, BLOOD 85 mg/dL (7-18)
[2021-03-01] MEDS: DOCUSATE SODIUM LIQ 100 MG/10 ML UDC GT SCH (08:35)
[2021-03-01] MEDS: AMLODIPINE BESYLATE 10 MG TABLET PO SCH (08:35)
[2021-03-01] MEDS: FOLIC ACID 1 MG TABLET PO SCH (08:35)
[2021-03-01] MEDS: FINASTERIDE (5 MG) 5 MG TABLET PO SCH (08:35)
[2021-03-01] MEDS: PANTOPRAZOLE 40 MG/PACK PACK GT SCH ×2 (08:35→21:54)
[2021-03-01] MEDS: CLONIDINE HCL 0.1 MG TABLET PO SCH ×2 (08:36→17:00)
[2021-03-01] MEDS: DAKINS QUARTER STRENGTH (0.125%) 480 ML BOTTLE TOP SCH (08:36)
[2021-03-01] MEDS: PROSOURCE / PROSTAT (PYXIS) 30 ML UDC GT SCH (08:36)
[2021-03-01] MEDS: CLOTRIMAZOLE 1% 15 GM TUBE TP SCH ×2 (08:37→16:49)
--- NOTE | 2021-03-01 08:55 | NUR ---
RT NOTE: PATIENT NT SUCTIONED TO OBTAIN LARGE AMOUNT OF THICK SMITH SECRETIONS. PATIENT TOLERATED WELL.
[2021-03-01 12:00] VITALS: BP 101/51
--- NOTE | 2021-03-01 12:10 | NUR ---
Patient arrived via bed at 12:10pmfrom [facility], patient obtunded, responsive to painful stimuli, no apparent distress noted, breathing even and unlabored, on oxygen mask at 10L and has 100% oxygen saturation. Patient's vital signs within normal limits. All belongings written in the inventory list. All needs anticipated, kept clean and dry, call light left within reach, safety precautions in place, brakes locked, side rails up X 2, will monitor closely for any changes.
--- NOTE | 2021-03-01 12:15 | NUR ---
RN NOTES PT TRANSFERRED TO ROOM 321-2, VIA ACLS PROTOCOL IN STABLE CONDITION , REPORT GIVEN TO KIKI COSME FOR CONTINUITY OF CARE .
--- NOTE | 2021-03-01 12:30 | NUR ---
RT NOTE: PATIENT NT SUCTIONED TO OBTAIN LARGE AMOUNT OF THICK SMITH/BLOODY SECRETIONS. PATIENT TOLERATED WELL.
[2021-03-01] MEDS: JEVITY 1.2 CAL 1,000 ML BOTTLE GT PRN (13:24)
[2021-03-01 16:00] VITALS: BP 98/57
--- NOTE | 2021-03-01 17:00 | NUR ---
RT NOTE: PATIENT NT SUCTIONED TO OBTAIN LARGE AMOUNT OF THICK SMITH SECRETIONS. PATIENT TOLERATED WELL.
[2021-03-01] MEDS: HEPARIN INFUSION/D5W 500 ML IV PRN (17:57)
--- NOTE | 2021-03-01 18:18 | NUR ---
RN CLOSING NOTES Patient in bed, responsive to tactile stimuli, breathing even and unlabored, no SOB, no apparent distress noted, no grimacing. Due medications given via ngtube per MD order, tolerating well. Patient has a heparin drip, infusing well on his left upper midline, no s/s of bleeding at this time, no hematuria, no blood in stool, no unusual bruising noted at this time, will continue to monitor. Ngtube placement checked by auscultation prior to giving medications, noted with 5ml gastric residual, Ngtube remained patent, in place and intact. Aspiration precautions observed. Patient has an order for bilateral soft wrist restraint for safety, visual check rendered every 15 minutes, patient repositioned frequently, no s/s of circulation impairment noted at this time, skin warm to touch, no pallor or cyanosis noted. All needs anticipated, kept clean and dry, call light left within reach, safety precautions in place, brakes locked, side rails up X 2, will endorse to next shift for continuity of care.
--- NOTE | 2021-03-01 19:41 | NUR ---
OFFICE MAIL CLERK OPENING NOTES: RECEIVED PATIENT SLEEP IN BED COMFORTABLY, BED IN LOW POSITION CALL LIGHTS WITHIN REACH, NO COMPLAIN OF PAIN AND DISCOMFORT AT THIS TIME, ON TELE MONITORING SR-89, ON ON FACE MASK AT 10LPM INFUSING WELL, ON NGT JEVITY 1.2255LPM VIA RIGHT NARES, ON HEPARIN DRIFT ONGOING PATIENT ON ISOLATION PRECAUTION, PATIENT KEPT CLEAN AND DRY, ALL NEEDS MET, YARITZA ANDREWS TO MONITOR,
[2021-03-01 20:00] VITALS: BP 115/68
--- NOTE | 2021-03-01 20:43 | NUR ---
RT NOTE PATIENT NT SUCTIONED FOR LARGE, THICK, SMITH SECRETIONS. NO ADVERSE REACTIONS. NO RESPIRATORY DISTRESS NOTED. WILL CONTINUE TO MONITOR PATIENT.
[2021-03-01] MEDS: ATORVASTATIN 10 MG TABLET PO SCH (21:54)
[2021-03-02] VITALS (8 sets, daily range): BP systolic 101–131; BP diastolic 51–71
--- NOTE | 2021-03-02 00:02 | NUR ---
RT NOTE PATIENT NT SUCTIONED FOR MODERATE, THICK, SMITH/BLOOD TINGED SECRETIONS. NO ADVERSE REACTIONS. NO RESPIRATORY DISTRESS NOTED. WILL CONTINUE TO MONITOR PATIENT.
[2021-03-02] MEDS: VANCOMYCIN HCL 125 MG/2.5 ML ORAL.SUSP PO SCH ×4 (00:07→18:15)
--- NOTE | 2021-03-02 03:12 | NUR ---
RN NOTES: RECEIVED A CALL FROM THE LABS FOR A CRITICAL LAB OF PTT AT 105.9, PATIENT CURRENTLY PATIENT HAS NA ONGOING HEPARIN DRIP AT 1200 UNITS/HR INFUSING WELL, ADJUSTED PER COMPANY PROTOCOL.
--- NOTE | 2021-03-02 04:00 | NUR ---
RT NOTE PT NT SUCTIONED FOR MODERATE, THICK, SMITH SECRETIONS. NO ADVERSE REACTIONS. NO RESPIRATORY DISTRESS NOTED.
[2021-03-02] MEDS: METRONIDAZOLE 500 MG TABLET PO SCH ×3 (05:31→21:07)
[2021-03-02 06:54] LABS: BASOPHILS % (AUTO) 0.4 % (0.0-2.0); EOSINOPHILS % (AUTO) 2.9 % (0.0-6.0); HEMATOCRIT 25 % (39-51); HEMOGLOBIN 8.1 g/dL (13.5-17.5); LYMPHOCYTES # (AUTO) 1.2 K/uL (0.8-4.8); MEAN CORPUSCULAR HGB CONC 33 g/dl (31.0-36.0); MEAN CORPUSCULAR VOLUME 97 fL (80-96); MONOCYTES # (AUTO) 0.7 K/uL (0.1-1.30); MONOCYTES % (AUTO) 6.7 % (2.0-12.0); NEUTROPHILS # (AUTO) 8.1 K/uL (1.8-8.9); PLATELET COUNT (AUTO) 249 K/uL (150-450); RED BLOOD CELL COUNT(AUTO) 2.56 MIL/uL (4.5-6.0); WHITE BLOOD COUNT (AUTO) 10.4 K/uL (4.3-11.0)
--- NOTE | 2021-03-02 07:30 | NUR ---
PERSONAL BANKING OFFICER OPENING NOTES: RECEIVED PATIENT SLEEPS IN BED COMFORTABLY, BED IN LOW POSITION AND LOCKED.CALL LIGHTS AND TABLE WITHIN REACH, NO PAIN NO FACIAL GRIMACING NO DISTRESS NOTED. ON TELE MONITORING SR-88, ON FACE MASK AT 10LPM , ON NGT JEVITY 1.2 @ 55 ML/HR VIA RIGHT NARES. ON HEPARIN DRIP OF 900 UNIT /HR. DUANE MIDLINE INTACT NO S/S OF BLEEDING NOTED.PATIENT ON ISOLATION PRECAUTION. WILL CONTINUE TO MONITOR,
--- NOTE | 2021-03-02 07:35 | NUR ---
SERVICE COUNTER CASHIER CLOSING NOTE PATIENT SLEEP IN BED COMFORTABLY, BED IN LOW POSITION, CALL LIGHTS WITHIN REACH, NO COMPLAIN OF PAIN AND DISCOMFORT AT THIS TIME, PATIENT ON NPO, NGT ON RIGHT NARES, PATENT WITH ONGOING JEVITY 1.2@55ML PER HOUR INFUSING WELL,HOB AT 45 DEGREE AT ALL TIME, PATIENT ON SIMPLE FACE MASK AT 10LPM MOUTH BREATHING SATURATING WELL AT 98%, ON ZHAO CATHETER WITH 801CC URINE OUTPUT, PATIENT HAS DUANE MIDLINE WITH ONGOING HEPARIN DRIP AT 900 U/HR INFUSING WELL, PATIENT KEPT CLEAN AND DRY, ALL NEEDS MET ENDORSE TO NCOMING SHIFT.
[2021-03-02 08:36] LABS: CALCIUM, SERUM 7.8 mg/dL (8.5-10.1); CARBON DIOXIDE 22 mmol/L (21-32); CHLORIDE 123 mmol/L (98-107); CREATININE 2.5 mg/dL (0.6-1.3); GLUCOSE 162 mg/dL (74-106); POTASSIUM 4.4 mmol/L (3.5-5.1)
[2021-03-02 08:39] LABS: UREA NITROGEN, BLOOD 81 mg/dL (7-18)
[2021-03-02 08:40] LABS: SODIUM SERUM 156 mmol/L (136-145)
[2021-03-02] MEDS: CLOTRIMAZOLE 1% 15 GM TUBE TP SCH ×2 (09:09→16:36)
[2021-03-02] MEDS: DAKINS QUARTER STRENGTH (0.125%) 480 ML BOTTLE TOP SCH (09:23)
[2021-03-02] MEDS: PANTOPRAZOLE 40 MG/PACK PACK GT SCH ×2 (09:28→21:07)
[2021-03-02] MEDS: DOCUSATE SODIUM LIQ 100 MG/10 ML UDC GT SCH (09:28)
[2021-03-02] MEDS: FOLIC ACID 1 MG TABLET PO SCH (09:29)
[2021-03-02] MEDS: FINASTERIDE (5 MG) 5 MG TABLET PO SCH (09:29)
[2021-03-02] MEDS: CLONIDINE HCL 0.1 MG TABLET PO SCH ×2 (09:29→16:36)
[2021-03-02] MEDS: PROSOURCE / PROSTAT (PYXIS) 30 ML UDC GT SCH (09:40)
[2021-03-02] MEDS: AMLODIPINE BESYLATE 10 MG TABLET PO SCH (09:41)
[2021-03-02] MEDS: JEVITY 1.2 CAL 1,000 ML BOTTLE GT PRN (10:58)
--- NOTE | 2021-03-02 11:06 | NUR ---
RN NOTES RECEIVED PTT RESULT FROM LAB 98.9. HOLD HEPARIN DRIP FOR 1 HOUR, DECREASED RATE TO 3 UNITS/KG/ZZ=048 UNITS/HR. ORDERED REPEAT PTT AT 1800 PER PROTOCOL.
--- NOTE | 2021-03-02 18:44 | NUR ---
DANCE DIRECTOR CLOSING NOTES: PATIENT SLEEPS IN BED COMFORTABLY, BED IN LOW POSITION AND LOCKED.CALL LIGHTS AND TABLE WITHIN REACH, NO PAIN NO FACIAL GRIMACING NO DISTRESS NOTED. ON TELE MONITORING SR-92. ON FACE MASK AT 10LPM , SUCTIONED THE PATIENT AND ORAL CARE PERFORMED FOR COMFORT. ON NGT JEVITY 1.2 @ 55 ML/HR VIA RIGHT NARES. DUE MEDS GIVEN ORDERED. ON HEPARIN DRIP OF 600 UNIT /HR. DUANE MIDLINE INTACT NO S/S OF BLEEDING NOTED.PATIENT ON CONTACT ISOLATION PRECAUTION FOR CDIFF. ZHAO CATHETER DRAINING WELL WITH 400 ML OUTPUT. SARA VISITED THE PATIENT.WILL ENDORSE INCOMING SHIFT FOR CONTINUOUS OF THE CARE.
--- NOTE | 2021-03-02 19:20 | NUR ---
LINER MACHINE OPERATOR OPENING NOTES PT WITH EYES CLOSED, NONVERBAL, NONRESPONSIVE. ON O2 @10LPM VIA MASK. TACHYPNEIC, RR26, DEEP REGULAR RESPIRATIONS. NGT R-NARE IN PLACE, PATENT, RESIDUALS 20CC, FLUSHES WELL. ON JEVITY 1.2 @55ML/HR. TAMI WELL, NO N/V NOTED. IV SITE: DUANE MIDLINE INTACT, WITH ONGOING HEPARIN DRIP @600 UNITS/HR. F/C IN PLACE, DRAINING DARK YELLOW URINE. ISOLATION PRECAUTIONS FOR C-DIFF OBSERVED. SAFETY MEASURES IN PLACE, BED IN LOWEST LOCKED POSITION, S/R UPX2, CALL LIGHT WITHIN REACH. WILL CONT TO MONITOR. Addendum: 03/02/21 at 2217 by CARMINE GALAVIZ RN TELE MONITOR READING SR, HR 92.
[2021-03-02] MEDS: ATORVASTATIN 10 MG TABLET PO SCH (21:07)
--- NOTE | 2021-03-02 21:44 | NUR ---
RT PERFORMED NT SXN, IMPROVED AERATION AND BREATH SOUNDS.
[2021-03-03] VITALS: BP 130/75
[2021-03-03] MEDS: VANCOMYCIN HCL 125 MG/2.5 ML ORAL.SUSP PO SCH ×3 (00:57→12:45)
[2021-03-03] MEDS: HEPARIN INFUSION/D5W 500 ML IV PRN (02:35)
[2021-03-03 04:00] VITALS: BP 111/68
[2021-03-03] MEDS: JEVITY 1.2 CAL 1,000 ML BOTTLE GT PRN (04:24)
[2021-03-03] MEDS: METRONIDAZOLE 500 MG TABLET PO SCH ×2 (05:45→12:44)
[2021-03-03 06:46] LABS: BASOPHILS % (AUTO) 0.3 % (0.0-2.0); EOSINOPHILS % (AUTO) 0.7 % (0.0-6.0); HEMATOCRIT 27 % (39-51); HEMOGLOBIN 8.6 g/dL (13.5-17.5); LYMPHOCYTES # (AUTO) 1.3 K/uL (0.8-4.8); LYMPHOCYTES % (AUTO) 9.9 % (20.0-44.0); MEAN CORPUSCULAR HGB CONC 32 g/dl (31.0-36.0); MEAN CORPUSCULAR VOLUME 97 fL (80-96); MONOCYTES # (AUTO) 0.7 K/uL (0.1-1.30); MONOCYTES % (AUTO) 5.2 % (2.0-12.0); NEUTROPHILS # (AUTO) 10.9 K/uL (1.8-8.9); NEUTROPHILS % (AUTO) 83.9 % (43.0-81.0); PLATELET COUNT (AUTO) 255 K/uL (150-450); RED BLOOD CELL COUNT(AUTO) 2.77 MIL/uL (4.5-6.0); WHITE BLOOD COUNT (AUTO) 12.9 K/uL (4.3-11.0)
--- NOTE | 2021-03-03 07:12 | NUR ---
TELE/RN CLOSING NOTES PT NONVERBAL, OBTUNDED. CONT ON O2 @10LPM VIA MASK. TACHYPNEIC, RR26, DEEP RESPIRATIONS. NGT R-NARE IN PLACE/PATENT/FLUSHES WELL, ONGOING JEVITY 1.2 @55ML/HR. TAMI WELL, NO N/V NOTED. IV SITE: DUANE MIDLINE INTACT/PATENT, RUNNING HEPARIN DRIP @600 UNITS/HR. F/C IN PLACE, DRAINING YELLOW URINE. ISOLATION PRECAUTIONS FOR C-DIFF OBSERVED. SOFT WRIST RESTRAINT TO ANISA.WRIST. SKIN AND CIRCULATION WNL. TELE MONITOR READING SR, HR 94. FREQUENT VISUAL CHECK DONE. SAFETY MEASURES MAINTAINED.
[2021-03-03 08:00] VITALS: BP 103/50
--- NOTE | 2021-03-03 08:09 | NUR ---
METER READERS SUPERVISOR OPENING NOTES RECEIVED Pt IN BED WITH EYES CLOSED AND NONVERBAL. Pt IS ON O2 @10LPM VIA MASK. Pt HAS DEEP REGULAR RESPIRATIONS. IV SITE IS LOCATED ON DUANE MIDLINE AND IS INTACT, WITH ONGOING HEPARIN DRIP @600 UNITS/HR. F/C IN PLACE, DRAINING DARK YELLOW URINE. ISOLATION PRECAUTIONS FOR C-DIFF OBSERVED. SAFETY MEASURES ARE IN PLACE, BED IS LOCKED AND IN LOWEST POSITION, S/R UPX2, CALL LIGHT AND BEDSIDE TABLE WITHIN REACH. WILL CONTINUE TO MONITOR THROUGHOUT THE SHIFT.
[2021-03-03] MEDS: CLONIDINE HCL 0.1 MG TABLET PO SCH ×2 (09:00→09:02)
[2021-03-03] MEDS: AMLODIPINE BESYLATE 10 MG TABLET PO SCH ×2 (09:00→09:02)
[2021-03-03] MEDS: PROSOURCE / PROSTAT (PYXIS) 30 ML UDC GT SCH (09:01)
[2021-03-03] MEDS: DOCUSATE SODIUM LIQ 100 MG/10 ML UDC GT SCH (09:01)
[2021-03-03] MEDS: PANTOPRAZOLE 40 MG/PACK PACK GT SCH (09:01)
[2021-03-03] MEDS: FINASTERIDE (5 MG) 5 MG TABLET PO SCH (09:01)
[2021-03-03] MEDS: FOLIC ACID 1 MG TABLET PO SCH (09:02)
[2021-03-03] MEDS: CLOTRIMAZOLE 1% 15 GM TUBE TP SCH (09:04)
[2021-03-03] MEDS: DAKINS QUARTER STRENGTH (0.125%) 480 ML BOTTLE TOP SCH (09:04)
--- NOTE | 2021-03-03 09:05 | NUR ---
MANUFACTURED BUILDINGS REPAIRER NOTES- WITHHOLD MEDICATION AMLODIPINE AND CLONIDINE PO WITHHELD DUE TO LOW BP 103/50 AND HR 99. WILL CONTINUE TO MONITOR
[2021-03-03 09:52] VITALS: BP 103/50
[2021-03-03 13:36] VITALS: BP 100/59
--- NOTE | 2021-03-03 13:55 | NUR ---
CARRIAGE RIDER NOTES- HOSPICE Pt FAMILY MEMBER AND HOSPICE NURSE CURRENTLY AT BEDSIDE WITH Pt
[2021-03-03 17:22] LABS: BAND % (MANUAL) 8 % (0.0-5.0); EOSINOPHILS % (MANUAL) 2 % (0-4); LYMPHOCYTES % (MANUAL) 12 % (16-48); MONOCYTES % (MANUAL) 5 % (0-11.0); NEUTROPHILS % (MANUAL) 73 (42-76)
== END 2021-03-03 15:55 | disposition hospice, inpatient (51) | DRG 871 ==
LOC: ER 18:28 → TELE1 22:13 → TELE-TD 01-29 20:41 → TELE1 01-30 08:11 → TELE 01-31 00:09 → MED 01-31 09:36 → MEDSG1 02-13 01:22 → TELE1 02-17 15:19 → TELE 03-01 12:02
PROVIDERS: ADMIT Nurse Practitioner Acute Care; ATTEND Nurse Practitioner Acute Care
PROC: 05H533Z Insertion of Infusion Device into Right Subclavian Vein, Percutaneous Approach (ICD-10-PCS; principal; 2021-01-29)
PROC: B546ZZA Ultrasonography of Right Subclavian Vein, Guidance (ICD-10-PCS; 2021-01-29)
PROC: 05H633Z Insertion of Infusion Device into Left Subclavian Vein, Percutaneous Approach (ICD-10-PCS; 2021-02-02)
PROC: B547ZZA Ultrasonography of Left Subclavian Vein, Guidance (ICD-10-PCS; 2021-02-02)
PROC: 05H533Z Insertion of Infusion Device into Right Subclavian Vein, Percutaneous Approach (ICD-10-PCS; 2021-02-08)
PROC: B546ZZA Ultrasonography of Right Subclavian Vein, Guidance (ICD-10-PCS; 2021-02-08)
PROC: 07DR3ZX Extraction of Iliac Bone Marrow, Percutaneous Approach, Diagnostic (ICD-10-PCS; 2021-02-12)
PROC: 05H633Z Insertion of Infusion Device into Left Subclavian Vein, Percutaneous Approach (ICD-10-PCS; 2021-02-17)
PROC: B547ZZA Ultrasonography of Left Subclavian Vein, Guidance (ICD-10-PCS; 2021-02-17)
DX: A41.9 Sepsis, unspecified organism (principal); J96.01 Acute respiratory failure with hypoxia; J15.6 Pneumonia due to other Gram-negative bacteria; G93.41 Metabolic encephalopathy; I50.33 Acute on chronic diastolic (congestive) heart failure; N17.0 Acute kidney failure with tubular necrosis; D68.59 Other primary thrombophilia; E44.0 Moderate protein-calorie malnutrition; E87.0 Hyperosmolality and hypernatremia; A04.72 Enterocolitis due to Clostridium difficile, not specified as recurrent; E87.1 Hypo-osmolality and hyponatremia; E87.2 Acidosis; K40.30 Unilateral inguinal hernia, with obstruction, without gangrene, not specified as recurrent; T82.868A Thrombosis due to vascular prosthetic devices, implants and grafts, initial encounter; I13.0 Hypertensive heart and chronic kidney disease with heart failure and stage 1 through stage 4 chronic kidney disease, or unspecified chronic kidney disease; I82.621 Acute embolism and thrombosis of deep veins of right upper extremity; E78.5 Hyperlipidemia, unspecified; N40.0 Benign prostatic hyperplasia without lower urinary tract symptoms; D64.9 Anemia, unspecified; E86.0 Dehydration; E87.6 Hypokalemia; E87.8 Other disorders of electrolyte and fluid balance, not elsewhere classified; F03.90 Unspecified dementia, unspecified severity, without behavioral disturbance, psychotic disturbance, mood disturbance, and anxiety; K21.9 Gastro-esophageal reflux disease without esophagitis; N18.9 Chronic kidney disease, unspecified; N28.1 Cyst of kidney, acquired; Z20.822 Contact with and (suspected) exposure to COVID-19; Z66 Do not resuscitate; Z51.5 Encounter for palliative care; M62.50 Muscle wasting and atrophy, not elsewhere classified, unspecified site; E88.09 Other disorders of plasma-protein metabolism, not elsewhere classified; E66.01 Morbid (severe) obesity due to excess calories; Z68.32 Body mass index [BMI] 32.0-32.9, adult; L89.156 Pressure-induced deep tissue damage of sacral region; L89.326 Pressure-induced deep tissue damage of left buttock; L89.316 Pressure-induced deep tissue damage of right buttock; Y84.8 Other medical procedures as the cause of abnormal reaction of the patient, or of later complication, without mention of misadventure at the time of the procedure; Y92.230 Patient room in hospital as the place of occurrence of the external cause; R65.20 Severe sepsis without septic shock
CPT/HCPCS: 31720; 36410; 36415; 36600; 71045-TC; 71250-TC; 74018; 76770-TC; 76870-TC; 80048-TC; 80053-TC; 80061-TC; 80076-TC; 80202-TC; 82040-TC; 82272-TC; 82728-TC; 82784; 82803-TC; 83540-TC; 83605-TC; 83615-TC; 83735-TC; 83880; 84100-TC; 84155; 84165; 84443-TC; 84484-TC; 85025-TC; 85610-TC; 85730-TC; 86334; 87040-TC; 87081-TC; 92521; 92526; 93307-TC; 93971-TC; 94799-TC; A4216; A4217; A6253; C9113; C9803; G0378; J0456; J0692; J0696; J1644; J1940; J2185; J2270; J2543; J3370; J3480; J3490; J7030; J7042; J7050; J7060; J7070; P9047; U0003

== ENCOUNTER 2021-03-03 15:50 | Inpatient (IN) | payer OTHER, MEDICARE ==
[~2021-03-03] VITALS: Ht 177.8 cm; Wt 102.1 kg
[~2021-03-03 15:50] MED LIST: ACET-2605 PO; ACET-868 PO; AMLO-213 PO; ATOR10TA PO; BISA10SU11 RC; CLON0.1T PO; DOCU-141 PO; FAMO20TA8 PO; FINA5TAB11 PO; FURO-145 PO; LACT10SO3 PO; MAGN400O6 PO; MEGE40TA5 PO; MELA5TAB PO; MULT-447 PO; NA P133E RC; POTA10TA10 PO
[2021-03-03] MEDS ORDERED: LORAZEPAM INJ 2 MG/ML VIAL IVP PRN (16:30)
[2021-03-03] MEDS ORDERED: MORPHINE SULFATE PF DRIP 250 MG in IV D5W 240 ML IV PRN (16:30)
[2021-03-03] MEDS ORDERED: ONDANSETRON HCL/PF 4 MG/2 ML VIAL IVP PRN (16:30)
[2021-03-03] MEDS ORDERED: SCOPOLAMINE PATCH 1 MG/72HR TD SCH (17:00)
--- NOTE | 2021-03-03 18:00 | NUR ---
HOSPICE CARE PATIENT ADMITTED TO [facility]OSPICE CARE. COMFORT MEASURES ONLY. WILL CONTINUE TO MONITOR.
--- NOTE | 2021-03-03 19:20 | NUR ---
RN NOTE PT RESTING COMFORTABLY IN BED, NONVERBAL, EYES CLOSED, RESPONDS TO DEEP TACTILE STIMULI. ON O2 @6LPM VIA SIMPLE MASK. IV ACCESS: DUANE MIDLINE INTACT/PATENT, RUNNING MORPHINE DRIP AT 4MG/HR. NO S/S OF PAIN/DISCOMFORT NOTED. FC IN PLACE, DRAINING YELLOW URINE, NO HEMATURIA NOTED. SAFETY MEASURES IN PLACE. WILL CONT TO MONITOR.
--- NOTE | 2021-03-03 19:37 | NUR ---
HOSPICE CARE PATIENT IS ONLY RESPONSIVE TO PAIN STIMULI. ON O2 AT 6 LPM VIA SIMPLE MASK. IV ACCESS ON LEFT UPPER ARM MIDLINE IS INTACT WITH A RUNNING MORPHINE SULFATE DRIP AT 4MG/HR. NO S/S OF DISTRESS NOTED AT THIS TIME. SAFETY MEASURES IN PLACED: BED LOCKED ON LOWEST POSITION, SIDE RAILS UPX3, CALL LIGHT WITHIN REACH. WILL ENDORSE TO THE NEXT SHIFT FOR LUNA.
[2021-03-03 20:31] VITALS: BP 102/48
--- NOTE | 2021-03-03 21:00 | NUR ---
RN NOTE RR14 IRREGULAR, DEEP, WITH OCC. APNEA. NO S/S OF PAIN NOTED.
--- NOTE | 2021-03-04 00:30 | NUR ---
RN NOTE PT NOTED NOT BREATHING, UNABLE TO OBTAIN V/S. CHARGE NURSE MADE AWARE AND ASSESSED, PRONOUNCED PT @0030
--- NOTE | 2021-03-04 00:37 | NUR ---
RN NOTE CALLED AND INFORMED HOSPICE, SPOKE WITH JANINA HOSPICE NURSE. FAMILY INFORMED, SPOKE WITH WARREN (SISTER). POST MORTEM CARE DONE.
--- NOTE | 2021-03-04 00:40 | NUR ---
CALLED [facility], SPOKE WITH YONG, GAVE CASE #[id number]
--- NOTE | 2021-03-04 00:50 | NUR ---
INFORMED/LEFT MESSAGE WITH DR.TIM MC. [facility], SPOKE WITH LASHONDA, STATED THEY WILL CHEF BROILER OR FRY REMAINS AFTER 0800 IN A.M. CHARGE NURSE AWARE. REMAINS WILL BE BROUGHT DOWN TO THE [facility].
== END 2021-03-04 00:30 | DRG 951 ==
LOC: HOSPICE 15:50
PROVIDERS: ADMIT Nurse Practitioner Acute Care; ATTEND Nurse Practitioner Acute Care
DX: Z51.5 Encounter for palliative care (principal); A41.9 Sepsis, unspecified organism; N17.0 Acute kidney failure with tubular necrosis; R65.20 Severe sepsis without septic shock; G93.41 Metabolic encephalopathy; I50.33 Acute on chronic diastolic (congestive) heart failure; J15.6 Pneumonia due to other Gram-negative bacteria; J96.01 Acute respiratory failure with hypoxia; A04.72 Enterocolitis due to Clostridium difficile, not specified as recurrent; E87.0 Hyperosmolality and hypernatremia; I82.621 Acute embolism and thrombosis of deep veins of right upper extremity; D64.9 Anemia, unspecified; E78.5 Hyperlipidemia, unspecified; E87.8 Other disorders of electrolyte and fluid balance, not elsewhere classified; F03.90 Unspecified dementia, unspecified severity, without behavioral disturbance, psychotic disturbance, mood disturbance, and anxiety; I11.0 Hypertensive heart disease with heart failure; Z66 Do not resuscitate; N40.0 Benign prostatic hyperplasia without lower urinary tract symptoms; N28.1 Cyst of kidney, acquired; K40.90 Unilateral inguinal hernia, without obstruction or gangrene, not specified as recurrent; M62.50 Muscle wasting and atrophy, not elsewhere classified, unspecified site; Z93.1 Gastrostomy status
CPT/HCPCS: G0378; J2274; J7060